=== PATIENT | female | born 1950 | race Two or more races ===

== ENCOUNTER 2022-06-16 14:20 | Outpatient (REF) | payer OTHER, SELFPAY ==
--- NOTE | ~2022-06-16 | US_ITS ---
EXAMINATION: US PELVIC AND TRANSVAGINAL CLINICAL INFORMATION: Right lower quadrant pain. COMPARISON: None TECHNIQUE: Ultrasound of the pelvis is performed using both transabdominal and transvaginal transducers along with Doppler. Transvaginal imaging is performed due to inadequate visualization transabdominally. FINDINGS: UTERUS: The uterus is anteverted and anteflexed and measures 7.6 x 1.9 x 3.4 cm. The double wall endometrial thickness is 2 mm. The uterus is smooth in contour and has normal myometrial echogenicity. No visible fibroid. Echogenic foci are seen in the cervical wall suggestive of calcifications. ADNEXA: Both ovaries are visualized. There is normal color flow to the adnexa. There is no ovarian torsion. There is no pelvic ascites or fluid collection. Right ovary measures 1.4 x 0.8 x 1.5 cm for a volume of 0.9 mL. Left ovary could not be seen. US/US pelvic and transvaginal IMPRESSION: A cause for the patient's right lower quadrant pain has not been found. No significant abnormality is seen.
--- NOTE | ~2022-06-16 | US_ITS ---
EXAMINATION: US ABDOMEN COMPLETE CLINICAL INFORMATION: Right lower quadrant pain/abdominal pain. COMPARISON: None TECHNIQUE: Real-time imaging of the abdominal viscera. FINDINGS: PANCREAS: Normal. ABDOMINAL AORTA: The proximal, mid, and distal segments are normal in caliber. INFERIOR VENA CAVA: Visualized portions are normal. LIVER: Normal. The liver is normal in size. The liver contour is normal. Parenchymal echogenicity is normal. No focal hepatic lesion. There is no intrahepatic biliary duct dilatation seen. GALLBLADDER: Normal. The gallbladder is physiologically distended without evidence of stones, sludge, polyps, wall thickening or pericholecystic fluid. COMMON BILE DUCT: Normal in caliber measuring 0.6 cm in diameter. RIGHT KIDNEY: Normal. No hydronephrosis. No renal calculi or focal parenchymal lesions. The kidney measures 9.4 cm in maximum dimension. LEFT KIDNEY: Normal. No hydronephrosis. No renal calculi or focal parenchymal lesions. The kidney measures 10.5 cm in maximum dimension. SPLEEN: Normal. The spleen measures 9.6 cm in maximum dimension. FREE FLUID: None. US/US abdomen complete IMPRESSION: No significant abnormality is seen and a cause for the patient's right lower quadrant/abdominal pain has not been found.
== END 2022-06-16 14:21 | disposition home or self-care (01) ==
LOC: HO.US 14:20
PROVIDERS: Visit Provider Internal Medicine
DX: R10.31 Right lower quadrant pain (principal)
CPT/HCPCS: 76700; 76830; 76856

== ENCOUNTER 2022-07-17 15:47 | Outpatient (REF) | payer OTHER, SELFPAY ==
[2022-07-17 16:50] LABS: TSH reflex Free T4 0.77 uIU/mL (0.32-4.0)
== END 2022-07-17 15:48 | disposition home or self-care (01) ==
LOC: HO.LAB 15:47
PROVIDERS: Visit Provider Nurse Practitioner Family
DX: Z01.818 Encounter for other preprocedural examination (principal); K21.9 Gastro-esophageal reflux disease without esophagitis; R13.10 Dysphagia, unspecified; K59.00 Constipation, unspecified
CPT/HCPCS: 36415; 84443; 99202

== ENCOUNTER 2022-07-20 15:01 | Outpatient (REF) | payer OTHER, SELFPAY | END 2022-07-20 15:02 | disposition home or self-care (01) | LOC: HO.LNP 15:01 | PROVIDERS: Visit Provider Nurse Practitioner Family | DX: K21.9 Gastro-esophageal reflux disease without esophagitis (principal); Z11.0 Encounter for screening for intestinal infectious diseases | CPT/HCPCS: 87338 ==

== ENCOUNTER 2022-07-21 14:03 | Outpatient (REF) | payer OTHER, SELFPAY ==
--- NOTE | ~2022-07-21 | MM_ITS ---
EXAMINATION: MM SCREENING DIGITAL BREAST TOMOSYNTHESIS, BILATERAL CLINICAL INFORMATION: Screening. Asymptomatic. The lifetime risk of breast cancer based on the Tyrer-Cuzick Model is 3.9%. COMPARISON: Mammography: November 13, 2021 and studies dating back to September 22, 2017 TECHNIQUE: Digital breast tomosynthesis is performed in both the craniocaudal and mediolateral oblique views along with computer-aided detection (CAD). Synthesized 2D images are generated from the tomosynthesis. FINDINGS: There are scattered areas of fibroglandular density (ACR BI-RADS breast composition Category b). Stable left breast density seen as well as being status post left breast biopsy. There is stable appearance of the breasts. MM/MM tomosynthesis screening BI IMPRESSION: No significant changes from prior exam. ASSESSMENT: BI-RADS 1: Negative RECOMMENDATION: Routine annual mammography screening. This patient's information was entered into a reminder system with a target due date for their next mammogram.
== END 2022-07-21 14:04 | disposition home or self-care (01) ==
LOC: HO.MAMMO 14:03
PROVIDERS: PCP Internal Medicine; Visit Provider Internal Medicine
DX: Z12.31 Encounter for screening mammogram for malignant neoplasm of breast (principal)
CPT/HCPCS: 77063; 77067

== ENCOUNTER 2022-11-16 16:59 | Inpatient (IN) | payer OTHER, SELFPAY ==
--- NOTE | ~2022-11-16 | US_ITS ---
EXAMINATION: US VENOUS ULTRASOUND WITH DOPPLER LOWER EXTREMITY, RIGHT CLINICAL INFORMATION: Swelling status post fall COMPARISON: None TECHNIQUE: Ultrasound of the deep veins is performed from the hip to the calf with compression sonography and color and pulse Doppler assessment. Spectral analysis with color-flow imaging is performed. FINDINGS: There is normal venous compression and respiratory variation and augmented flow. The visualized common femoral vein, superficial femoral vein, profunda femoral vein, popliteal vein, and the trifurcation region shows no evidence of deep venous thrombosis. There is no significant popliteal fossa cyst. If the patient's symptoms persist, followup ultrasound in 5 days 7 days might be of value to exclude proximal propagation from a non-visualized calf vein. US/US venous duplex LE RT IMPRESSION: No DVT demonstrated in the right lower extremity.
--- NOTE | ~2022-11-16 | MR_ITS ---
EXAMINATION: MRI LOWER EXTREMITY WITHOUT AND WITH CONTRAST, RIGHT CLINICAL INFORMATION: Osteomyelitis. COMPARISON: X-ray of the right tibia-fibula 11/16/2022. TECHNIQUE: MRI of the right lower extremity without and with contrast. CONTRAST DOSE: 6.5 mL of Gadavist given intravenously. FINDINGS: SKIN AND SUBCUTANEOUS SOFT TISSUES: There are 2 superficial defects along the distal half of the lateral aspect of the right lower leg. The more proximal defect measures 12 mm transverse located approximately 13 cm proximal to the tibiotalar joint. The second is more distally located measuring 8 mm transverse located approximately 8.5 cm proximal to the tibiotalar joint. There is thickening of the adjacent skin in both areas as well as enhancement of the skin and subcutaneous soft tissues. There is also heterogeneous abnormal signal and some enhancement extending deep to the superficial defects extending through the deeper subcutaneous soft tissues in this area to level of the muscles and/or fascia. There is scattered abnormal increased T2 signal with some enhancement of the peroneal muscles/peroneal compartment. There is also mild increased T2 signal with some scattered enhancement of the distal 8.5 cm of the fibula. There is only minimal concomitant abnormal decreased T1 signal along the distal aspect of the fibula. ADDITIONAL FINDINGS: There is a mild generalized fluid signal circumferentially about the lower leg without enhancement compatible with edema. Remaining muscles are normal. Signal in the tibia is normal. The tendons are normal. MR/MR lower leg RT wo/w con IMPRESSION: Abnormality in the soft tissues along the lateral aspect of the distal half of the lower leg compatible with 2 small areas of superficial ulcerations with additional edema and cellulitis. Concomitant abnormality of the peroneal muscles which could reflect muscle contusion, strain, or myositis. Abnormality of the marrow of the distal fibula of uncertain significance given the relative lack of abnormal signal in the T1-weighted sequence. Given the overlying soft tissue findings and the clinical presentation, early osteomyelitis is likely and cannot be excluded. However it is possible the changes within the bone could be reactive related to the overlying inflammatory process.
--- NOTE | ~2022-11-16 | XR_ITS ---
EXAMINATION: XR TIBIA AND FIBULA, RIGHT CLINICAL INFORMATION: Smith wound. Question osteomyelitis. COMPARISON: None TECHNIQUE: 3 views of the right tibia and fibula were obtained. FINDINGS: There is a mild soft tissue swelling along the anterior aspect of the tibia. Soft tissue swelling along the anterior aspect of the ankle. There is lucency and subtle cortical irregularity of the anterior aspect of the tibial plafond, as seen on the lateral projection. Osteomyelitis in this region cannot be excluded. No acute fracture or dislocation. Small suprapatellar joint effusion. Quadriceps tendon insertional spurring. XR/XR tibia fibula RT 2V IMPRESSION: Findings in the anterior aspect of the distal tibial plafond, seen on lateral projection. This is nonspecific in nature. Osteomyelitis in this region cannot be excluded. MRI evaluation would be more sensitive for further evaluation. Soft tissue swelling along the anterior aspect of the tibia and ankle.
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
[2022-11-16 17:16] VITALS: BP 124/74; BP 180/90; PULSE 82; PULSE 85; RESP 18; TEMP 36.9; O2SAT 98; O2SAT 99; BMI 26.4
[2022-11-16 19:15] LABS: MANUAL DIFF FLAG NO
[2022-11-16 19:22] LABS: Basophils Percent Auto 0.2 % (0-2); Eosinophils Percent Auto 0.4 % (0-4); Hematocrit 32.4 % (37.0-47.0); Hemoglobin 10.3 g/dl (12.0-16.0); Imm Gran Abs Auto 0.01 X10*3/uL (0.00-0.03); Imm Gran Pct Auto 0.2 % (0.0-0.4); Lymphocytes Absolute Auto 1.2 X10*3/uL (1.2-4.9); Lymphocytes Percent Auto 24.8 % (20-40); Mean Corpuscular HGB Conc 31.8 g/dl (31.0-35.0); Mean Corpuscular Hemoglobin 27.8 pg (27.0-33.0); Mean Corpuscular Volume 87.6 fL (80.0-98.0); Mean Platelet Volume 9.8 fL (9.4-12.3); Monocytes Absolute Auto 0.4 X10*3/uL (0.1-1.2); Monocytes Percent Auto 7.2 % (2-11); Neutrophils Absolute Auto 3.4 x10*3/uL (2.0-8.3); Neutrophils Percent Auto 67.2 % (45-73); Platelet Count 182 X10*3/uL (160-400); Red Cell Distribution Width 13.9 % (11.0-16.0)
[2022-11-16 19:33] LABS: Lactic Acid 0.7 mmol/L (0.5-2.0)
[2022-11-16 19:36] LABS: COVID-19 Test Negative (Negative); IDNOW Serial# 16C4AD1C
[2022-11-16 19:37] LABS: Alanine Aminotransferase 12 U/L (0-31); Albumin Level 3.7 g/dL (3.5-5.0); Alkaline Phosphatase 76 U/L (39-117); Anion Gap 13 (12-20); Aspartate Amino Transferase 15 U/L (5-31); Bilirubin Total 0.4 mg/dL (0.0-1.0); Blood Urea Nitrogen 19 mg/dL (9-16); C Reactive Protein 0.55 mg/dL (< or = 0.50); Calcium 8.8 mg/dL (8.4-10.2); Carbon Dioxide 22 mmol/L (22-29); Chloride 112 mmol/L (96-108); Creatinine Clr Calc Pharmacy 55.6; Estimated Glomerular Filt Rate > 60; Glucose Random 125 mg/dL (60-115); Potassium 3.5 mmol/L (3.3-5.1); Sodium 143 mmol/L (135-145); Total Protein 5.8 g/dL (6.5-8.0)
[2022-11-16 19:43] LABS: B Type Natriuretic Peptide 162 pg/mL (<100)
[2022-11-16 19:55] LABS: Erythrocyte Sedimentation Rate 16 MM/HR (0-20)
[2022-11-16 21:01] VITALS: BP 137/106; PULSE 84; RESP 16; TEMP 36.8; O2SAT 99
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
--- NOTE | 2022-11-16 22:18 | PHA.PROG ---
Admission Date/Time: Indication: bone and joint Weight in k.503 kg Adjusted body weight in Kg: Sula body weight in Kg: Obesity Dosing Indication % IBW: Serum Creatinine - Last 168 Hours 11/16/22 19:07 Creatinine 0.78 Estimated CrCl and GFR - Last 168 Hours 11/16/22 19:07 Estim Creat Clear Calc 55.6 Estimated GFR > 60 Vancomycin Loading Dose: 1500mg X 1 Current Vancomycin Dosing Regimen: 1000mg Q24H Vancomycin Monitoring using AUC goal of 400 - 600 range with trough as surrogate marker: 429mg/L; trough 12.6 Date and Time for next Vancomycin Level to be drawn: 11/19/22 @2100 Pharmacist Comments on Vancomycin Plan: will continue to monitor Vancomycin dosing will take advantage of [employer] as a clinical decision support tool that uses Bayesian modeling to calculate individual patient's pharmacokinetic parameters and forecast the patient's drug concentration time course with the target goal AUC 24 range of 400 - 600 mg/L/hr.
[2022-11-16] MEDS: cefEPime HCl 2 GM in 0.9 % Sodium Chloride 50 ML IV (22:19)
[2022-11-16] MEDS: Morphine Sulfate 4 MG/ML CARTRIDGE 2 MG IVPUSH (22:20)
[2022-11-16] MEDS: Enoxaparin Sodium 40 MG/0.4 ML SYRINGE SUBCUT (22:20)
--- NOTE | 2022-11-16 22:26 | PC.NURSE ---
pt a&o, denies an sob or chest pain, medicated per Mar. Will continue to moniotr.
[2022-11-16] MEDS: vancomycin HCL 1,500 MG in 0.9 % Sodium Chloride 500 ML 333.33 MG IV (23:06)
[2022-11-16 23:08] VITALS: BP 117/76; PULSE 96; RESP 17; TEMP 36.8; O2SAT 99
--- NOTE | 2022-11-16 23:09 | PC.NURSE ---
Medicated per Mar.
[2022-11-17] MEDS: 0.9 % Sodium Chloride Flush 3 ML SYRINGE IVFLUSH ×3 (00:59→21:48)
[2022-11-17 01:01] VITALS: BP 128/51; PULSE 82; RESP 18; TEMP 36.8; O2SAT 98
[2022-11-17 02:41] VITALS: BP 135/53; PULSE 74; RESP 17; TEMP 36.8; O2SAT 97
--- NOTE | 2022-11-17 03:43 | PC.NURSE ---
Wound to right leg marked and dated, positive cms and pedal pulses by Doppler. Legs elevated. Pt is sleeping at this time with no distress.
--- NOTE | 2022-11-17 04:36 | PC.NURSE ---
pt sleeping at this time with distress.
[2022-11-17 07:11] VITALS: BP 120/75; PULSE 80; RESP 16; O2SAT 100
[2022-11-17 07:30] LABS: MANUAL DIFF FLAG NO
[2022-11-17 07:34] LABS: Basophils Percent Auto 0.5 % (0-2); Eosinophils Absolute Auto 0.1 X10*3/uL (0.0-0.4); Eosinophils Percent Auto 1.4 % (0-4); Hematocrit 32.2 % (37.0-47.0); Hemoglobin 10.2 g/dl (12.0-16.0); Lymphocytes Absolute Auto 0.9 X10*3/uL (1.2-4.9); Lymphocytes Percent Auto 23.6 % (20-40); Mean Corpuscular HGB Conc 31.7 g/dl (31.0-35.0); Mean Corpuscular Volume 88.5 fL (80.0-98.0); Mean Platelet Volume 10.4 fL (9.4-12.3); Monocytes Absolute Auto 0.3 X10*3/uL (0.1-1.2); Monocytes Percent Auto 8.5 % (2-11); Neutrophils Absolute Auto 2.4 x10*3/uL (2.0-8.3); Platelet Count 158 X10*3/uL (160-400); Red Blood Count 3.64 X10*6/uL (4.20-5.50); Red Cell Distribution Width 13.9 % (11.0-16.0); White Blood Count 3.7 X10*3/uL (4.8-10.8)
[2022-11-17 07:51] LABS: Anion Gap 12 (12-20); Blood Urea Nitrogen 14 mg/dL (9-16); Calcium 8.7 mg/dL (8.4-10.2); Carbon Dioxide 22 mmol/L (22-29); Chloride 113 mmol/L (96-108); Creatinine Clr Calc Pharmacy 58.7; Estimated Glomerular Filt Rate > 60; Glucose Random 94 mg/dL (60-115); Potassium 3.6 mmol/L (3.3-5.1); Sodium 143 mmol/L (135-145)
[2022-11-17] MEDS: Acetaminophen 325 MG TABLET 650 MG PO ×3 (08:33→21:48)
--- NOTE | 2022-11-17 09:45 | PC.NURSE ---
MRI form completed with assistance of respiratory medicine physician. Patient given PRN tylenol for complaint of mild RLE pain with good effect.
--- NOTE | 2022-11-17 10:36 | MHC.CM.PN ---
Addendum entered by Sandy Bellamy 11/17/22 11:40: REFERRAL MADE TO [facility] THEY INDICATE, PT IS ACTIVE WITH THEM FOR SN SERVICES THEY WILL FOLLOW ADMISSION Original Note: CM MET WITH PT WITH THE ASSISTANCE OF [facility] PT REPORTS SHE LIVES ALONE SHE IS SUPPOSED TO HAVE UPHOLSTERY TRIMMER CARE, HOWEVER SHE ONLY ALLOWS ONE PERSON AND THEY RECENTLY [place] TO THE [place]. SHE SAYS HE IS IN THE PROCESS OF GETTING THE PAPERWORK COMPLETE TO RETURN SHE USES A WALKER TO AMBULATE SHE DOES NOT KNOW THE NAME HER OF PCP, SHE GOES TO [facility] SHE DECLINES TO COMPLETE A HCP IMM DELIVERED, COPY SENT TO [facility]DS CURRENTLY DCP IS TBD HOME VS HOME WITH [facility] IF IV ABX ARE REQUIRED, SHE WILL NEED SNF REFERRALS OUT FOR ALL POSSIBLE DC PLANS SHE WILL NEED TRANSPORTATION ARRANGED
--- NOTE | 2022-11-17 11:54 | MHC.EDTECH ---
Pt was assisted with a complete bed bath. Pt needed limited assistance with the task. The pt is able to stand up well alone. Pt was able to brush her teeth on bedside. Pt needed assistance with putting on new underwear and socks. Bed linens were swapped for clean ones. 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 No complaints.
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
[2022-11-17 13:30] VITALS: BP 137/72; PULSE 90; RESP 16; TEMP 37.1; O2SAT 100
[2022-11-17] MEDS: cefEPime HCl 2 GM in 0.9 % Sodium Chloride 50 ML IV ×2 (13:37→22:13)
[2022-11-17] MEDS: Metoprolol Succinate ER 25 MG TAB.ER.24H PO (13:59)
[2022-11-17] MEDS: Multivitamin TABLET 1 TAB PO ×2 (14:00→21:50)
[2022-11-17] MEDS: Cyanocobalamin (Vitamin B-12) 1,000 MCG TABLET 1000 MCG PO (14:00)
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
[2022-11-17 19:26] VITALS: BP 143/60; PULSE 79; RESP 15; TEMP 36.6; O2SAT 100
[2022-11-17] MEDS: Enoxaparin Sodium 40 MG/0.4 ML SYRINGE SUBCUT (21:48)
[2022-11-17] MEDS: Sennosides 8.6 MG TABLET PO (21:48)
[2022-11-17] MEDS: vancomycin HCL 1,000 MG in 0.9 % Sodium Chloride 250 ML 270 MG IV (23:01)
--- NOTE | 2022-11-18 04:51 | PC.NURSE ---
assumed care of patient at 0300 . patient resting comfortably on stretcher
[2022-11-18 07:36] LABS: Creatinine Clr Calc Pharmacy 56.4; Estimated Glomerular Filt Rate > 60
[2022-11-18 07:58] VITALS: BP 132/64; PULSE 90; RESP 14; TEMP 36.8; O2SAT 99
[2022-11-18] MEDS: Multivitamin TABLET 1 TAB PO (08:25)
[2022-11-18] MEDS: Metoprolol Succinate ER 25 MG TAB.ER.24H PO (08:25)
[2022-11-18] MEDS: Omeprazole 20 MG CAPSULE.DR PO (08:25)
[2022-11-18] MEDS: Cyanocobalamin (Vitamin B-12) 1,000 MCG TABLET 1000 MCG PO (08:25)
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
--- NOTE | 2022-11-18 10:23 | MHC.CM.PN ---
Patient has been medically cleared for dc to home today, with services. Patient is active with [facility], who has been made aware of today's dc and dc summary and face to face has been sent to them via Topic. Last IMM addressed yesterday.
--- NOTE | 2022-11-18 11:21 | PC.NURSE ---
will follow up with wound care, Dr figueroa aware patient still has stiches in place
== END 2022-11-18 11:25 | disposition home health service (06) | DRG 603 ==
LOC: HO.ED 21:42 → HO.EDOVER 22:29
PROVIDERS: Physician Assistant; Admitting Provider Physician Assistant; Emergency Provider Internal Medicine; PCP Internal Medicine; Visit Provider Internal Medicine
DX: L03.115 Cellulitis of right lower limb (principal); M86.161 Other acute osteomyelitis, right tibia and fibula; D64.9 Anemia, unspecified; M10.9 Gout, unspecified; K21.9 Gastro-esophageal reflux disease without esophagitis; I10 Essential (primary) hypertension; Z20.822 Contact with and (suspected) exposure to COVID-19; Z79.899 Other long term (current) drug therapy
CPT/HCPCS: 36415; 73590; 73720; 80048; 80053; 82565; 83605; 83735; 83880; 85025; 85652; 86140; 87040; 87635; 93971; 99285; A9585; J0692; J1650; J2270; J3370; J3371

== ENCOUNTER 2022-12-01 14:00 | Outpatient (RCR) | payer OTHER, SELFPAY | END 2023-01-29 13:45 | disposition home or self-care (01) | LOC: HO.WCC 14:00 | PROVIDERS: Visit Provider Physician Assistant | DX: E11.622 Type 2 diabetes mellitus with other skin ulcer (principal); L97.812 Non-pressure chronic ulcer of other part of right lower leg with fat layer exposed; I87.2 Venous insufficiency (chronic) (peripheral); E11.65 Type 2 diabetes mellitus with hyperglycemia; I10 Essential (primary) hypertension; I25.2 Old myocardial infarction | CPT/HCPCS: 11042; 11043; 11045; 11046; 99212 ==

== ENCOUNTER 2023-04-29 14:22 | Outpatient (REF) | payer OTHER, SELFPAY ==
--- NOTE | ~2023-04-29 | MM_ITS ---
EXAMINATION: BONE DENSITOMETRY CLINICAL INDICATION: Postmenopausal. COMPARISON: This is the patient's baseline examination. TECHNIQUE: Using a [employer] DXA System (software version: 13.1) manufactured by [employer], dual-energy x-ray absorptiometry was performed of the lumbar spine and left hip. The images are of good technical quality. Summary results are attached. FINDINGS: LEFT FEMUR, NECK: BMD 0.614 g/cm2, Z-score -1.2, T-score -3.0, osteoporosis. LEFT FEMUR, TOTAL: BMD 0.654 g/cm2, Z-score -1.1, T-score -2.8, osteoporosis. AP SPINE L1-L2 (excluding L3 and L4): The data of L1-L4 has been changed to exclude the L3 and L4 vertebral bodies, because degenerative sclerosis at these levels may cause overestimation of lumbar spine density. BMD 0.881 g/cm2, Z-score -0.6, T-score -2.4, osteopenia. IDENTIFIED RISK FACTORS: Menopause, osteoporosis. HISTORY OF FRACTURE: None listed. MEDICATIONS: Calcium, vitamin D. MM/XR DEXA axial skeleton IMPRESSION: 1. DIAGNOSIS: Osteoporosis based on the lowest T-score value of -3.0 in the femoral neck applying World Health Organization criteria. 2. 10-YEAR FRACTURE RISK PREDICTION, FRAX: According to the guidelines, FRAX calculation should only be performed on patients in the osteopenia bone density category. Therefore, FRAX was not performed on this patient. 3. Treatment Recommendations: NOF guidelines recommend consideration for treatment in postmenopausal women and men age 50 and older presenting with the following: -A hip or vertebral (clinical or morphometric) fracture. -T-score less than or equal to -2.5 at the femoral neck or spine after appropriate evaluation to exclude secondary causes. -Low bone mass at the hip or spine and a 10-year fracture probability by FRAX of greater than or equal to 3% for hip fracture or greater than or equal to 20% for major osteoporotic fracture based on the [place] adapted WHO algorithm. 4. Other Recommendations: All treatment decisions require clinical judgment and consideration of individual patient factors, including patient preferences, comorbidities, previous drug use, risk factors not captured in the FRAX model (e.g. frailty, falls, vitamin D deficiency, increased bone turnover, interval significant decline in bone density) and possible under or overestimation of fracture risk by FRAX. Additional medical evaluation for secondary cause of low bone mineral density may be appropriate. FUTURE SCAN RECOMMENDATION: People with diagnosed cases of osteoporosis or at high risk for fracture should have regular bone mineral density tests. For patients eligible for Medicare, routine testing is allowed once every 2 years. The testing frequency can be increased to one year for patients who have rapidly progressing disease, those who are receiving or discontinuing medical therapy to restore bone mass, or have additional risk factors.
== END 2023-04-29 14:23 | disposition home or self-care (01) ==
LOC: HO.MAMMO 14:22
PROVIDERS: PCP Family Medicine; Visit Provider Family Medicine
DX: Z13.820 Encounter for screening for osteoporosis (principal); Z78.0 Asymptomatic menopausal state
CPT/HCPCS: 77080

== ENCOUNTER → 2023-04-29 14:30 | Outpatient (BNV) | payer OTHER, SELFPAY | PROVIDERS: PCP Family Medicine; Visit Provider Radiology Diagnostic Radiology | DX: Z13.820 Encounter for screening for osteoporosis (principal) | CPT/HCPCS: 77080 ==

== ENCOUNTER 2023-09-01 12:30 | Outpatient (REF) | payer OTHER, SELFPAY ==
--- NOTE | ~2023-09-01 | MM_ITS ---
EXAMINATION: MM SCREENING DIGITAL BREAST TOMOSYNTHESIS, BILATERAL CLINICAL INFORMATION: Screening. Asymptomatic. COMPARISON: Mammography: This study is compared with prior exams dating back to 2017. TECHNIQUE: Digital breast tomosynthesis is performed in both the craniocaudal and mediolateral oblique views along with computer-aided detection (CAD). Synthesized 2D images are generated from the tomosynthesis. FINDINGS: There are scattered areas of fibroglandular density (ACR BI-RADS breast composition Category b). There are no significant masses, abnormal calcifications, or other abnormalities. There is a tissue marker present in the lateral aspect of the left breast from prior benign percutaneous biopsy. MM/MM tomosynthesis screening BI IMPRESSION: No mammographic evidence of malignancy. ASSESSMENT: BI-RADS BI-RADS 2 - Benign Findings RECOMMENDATION: Routine annual mammography screening. 1 year F/U This examination should not preclude the clinical evaluation of a suspicious palpable abnormality. This patient's information was entered into a reminder system with a target due date for their next mammogram.
== END 2023-09-01 12:31 | disposition home or self-care (01) ==
LOC: HO.MAMMO 12:30
PROVIDERS: PCP General Practice; Visit Provider Internal Medicine
DX: Z12.31 Encounter for screening mammogram for malignant neoplasm of breast (principal)
CPT/HCPCS: 77063; 77067

== ENCOUNTER → 2023-09-01 12:30 | Outpatient (BNV) | payer OTHER, SELFPAY | PROVIDERS: PCP General Practice; Visit Provider Radiology Diagnostic Radiology | DX: Z12.31 Encounter for screening mammogram for malignant neoplasm of breast (principal) | CPT/HCPCS: 77063; 77067 ==

== ENCOUNTER 2023-09-07 11:48 | Outpatient (AMB) | payer OTHER, SELFPAY ==
--- NOTE | 2023-09-07 11:50 | A.OFFVIS_ITS ---
Intake Vital Signs 09/07/23 11:51 Height 5 ft 1 in Weight 145 lb 8.081 oz BMI 27.5 BP 135/60 Blood Pressure Location Lt brachial Position Sitting Pulse 79 Intake Visit Reasons: Follow up re discuss colo Intake Note: Erica presents in the office as a follow up to justin. CC: She states that she is not having any concerns. Allergies No Known Allergies Allergy (Verified 09/07/23 11:52) HPI Follow up re discuss colo HPI Details LAST VISIT Screen for colon cancer Reports symptoms of shortness of breath, palpitation and chest pressure. Patient states that feeling of choking like episode when she is walking even short dista nces. We will refer her to Cardiology for risk stratification. Patient also has symptoms of acid reflux, dyspepsia, dysphagia without odynophagia. Her symptoms of shortness of breath and chest pressure could be related to acid reflux, however given her age and her symptoms she should be evaluated before going under anesthesia. Denies any issues with anesthesia in the past.? Denies any history of sleep apnea.? No history infectious diseases in the past or present.? Not on any anticoagulation therapy.? No family or personal history of colon cancer or polyps.? Patient denies melena, hematochezia, unintentional weight loss or ribbon like stools.? Discussed at length the pre-procedure,? prep, diet & medications as well as what to expect prior, during and after the procedure.?? Stressed the importance of good bowel prep. ?Recommended the use of Vaseline or Calmoseptine OTC & baby wipes with bowel movements to promote comfort.? ?Patient verbalizes understanding and agrees to plan of care.? She was given the opportunity to ask questions and all questions answered.? We will see her after the procedure.? GERD (gastroesophageal reflux disease) Will check for H pylori treat empirically if positive. Patient is on omeprazole 20 mg daily and continues to have symptoms. Discussed with her avoiding dietary triggers and late night snacking. Staying upright for minimal 3 hours after meals discussed with patient. Dysphagia Patient reports to have trouble swallowing certain food. This most likely is related to her acid reflux, possible H pylori. We will treat her empirically if is positive. We will send her for upper endoscopy as well to further evaluate for any strictures, Schatzki ring, achalasia. Patient was encouraged to eat slowly and small soft food. Patient is agreeable to this plan and verbalizes understanding of instructions. She was given the opportunity to ask questions and all questions answered. ? Thank you for allowing me to participate in her care Plan Orders Orders H pylori Ag Stool 07/20/22 K21.9 TSH reflex Free T4 07/17/22 K59.00 Referrals Cardiology Referral Z01.810 Medications New sennosides (Evac-U-Gen (sennosides)) 8.6 mg PO BEDTIME 30 tabs 3RF polyethylene glycol 3350 (Miralax) 17 grams PO DAILY 510 grams 2RF TODAY'S VISIT: Patient is here today to discuss going for colonoscopy. Patient never went for colonoscopy after her last visit in the office here in July of 2022. Patient reports that she no longer has any cardiac or respiratory symptoms. Occasional dysphagia when swallowing medications or solid food. Denies any history of sleep apnea. See above plan from last visit. Patient reports that she is moving her bowels better now. Denies any melena, hematochezia, unintentional weight loss or ribbon like stools. [facility] Medical History External hemorrhoids Constipation Gout Tachycardia HTN (hypertension) GERD (gastroesophageal reflux disease) Surgical History Hx of colonoscopy Family History Sister Diabetes HTN (hypertension) Social History Alcohol intake: never Patient Tobacco Use Status: Never used Tobacco service: No Current occupational status: retired Review of Systems Const Denies weight gain and Denies weight loss ENT Reports no additional complaints, Reports dysphagia and Denies odynophagia Card Reports no additional complaints Resp Reports no additional complaints GI Denies abdominal pain, Denies belching, Denies melena, Denies bloating, Denies change in bowel habits, Reports dysphagia, Denies excessive flatus, Denies dyspepsia, Denies heartburn, Denies diarrhea, Denies loose stools, Denies nausea, Denies odynophagia and Denies vomiting Musc Reports no additional complaints Neuro Reports no additional complaints Psych Reports no additional complaints Endo Reports no additional complaints Physical Exam Vital Signs: Last Vital Signs Pulse 79 09/07/23 11:51 BP 135/60 09/07/23 11:51 BMI result Body Mass Index 27.5 Const General: healthy appearing, no acute distress and well developed Nutritional Appearance: well nourished Orientation/consciousness: patient oriented x3 HEENT Head: Yes normal to inspection, Yes normocephalic and Yes atraumatic Face and sinus: Yes normal facial exam Mouth: Normal oral and palatal mucosa present Throat: Yes posterior oropharynx normal, Yes tonsils normal and Yes uvula midline Eyes General: appearance normal, both eyes and all related structures Neck Neck: Yes normal visual inspection, Yes full ROM and Yes trachea midline Thyroid: Thyroid normal Resp Effort & Inspection: normal respiratory effort, able to speak in complete sentences, no tracheal deviation and symmetric chest movement Auscultation: clear to auscultation bilaterally Cardio Rate: regular rate GI Inspection: Yes normal to inspection and No distended Palpation (GI): Soft to palpation, not firm, nontender and No hepatosplenomegaly present Auscultation: normal bowel sounds General: Yes no CVA tenderness Back/Spine/Pelvis Back: no CVA tenderness Skin General skin exam: elasticity normal, turgor normal and dry skin Neuro General: patient oriented x3 Psych Appearance: grossly normal Mental Status: mental status grossly normal Assessment & Plan Assessment & Plan (1) GERD (gastroesophageal reflux disease): Code(s): K21.9 - Gastro-esophageal reflux disease without esophagitis Qualifiers: Esophagitis presence: esophagitis presence not specified Qualified Code(s): K21.9 - Gastro-esophageal reflux disease without esophagitis (2) Screen for colon cancer: Code(s): Z12.11 - Encounter for screening for malignant neoplasm of colon (3) Dysphagia: Code(s): R13.10 - Dysphagia, unspecified Qualifiers: Dysphagia type: pharyngoesophageal phase Qualified Code(s): R13.14 - Dysphagia, pharyngoesophageal phase Plan Patient was encouraged to chew her food and eat slowly. Continue taking omeprazole. I will send her for upper endoscopy as well due to patient's dysphagia to rule out esophagitis, Flores's, Schatzki ring, achalasia. Patient will not need cardiac clearance. States that she had seen record label intern at [facility] where she had stress test and it was normal. Patient no longer has any cardiac or respiratory symptoms. Patient is not on any anticoagulation medications. What to expect before during and after procedure discussed with patient. Went over MiraLax prep. Patient will take 4 Dulcolax tablets a day before the procedure. Detailed instructions given to patient and her [employer]. She will follow-up in the office after the procedure, sooner on as needed basis. She is agreeable to this plan and verbalizes understanding of instructions. She was given the opportunity to ask questions and all questions answered. Thank you for allowing me to participate in her care Medications: New polyethylene glycol 3350 (Miralax) As directed by gastroenterology [facility] at [facility] 238 grams PO ONCE 238 grams 0RF Z12.11 - Encounter for screening for malignant neoplasm of colon bisacodyl (Dulcolax (bisacodyl)) take 4 tabs at noon the day before your colonoscopy 20 mg (4 x 5 mg) PO ONCE 1 day 4 tabs 0RF Z12.11 - Encounter for screening for malignant neoplasm of colon Coding Level of Care Code Est Pt Level 3 (96047) Diagnoses Gastroesophageal reflux disease, unspecified whether esophagitis present K21.9 Esophagitis presence: esophagitis presence not specified Screen for colon cancer Z12.11 Pharyngoesophageal dysphagia R13.14 Dysphagia type: pharyngoesophageal phase Time Spent (min) 35 Comment 25 minutes spent with patient and additional 10 minutes spent reviewing her records
[2023-09-07 11:51] VITALS: BP 135/60; PULSE 79; BMI 27.5
== END 2023-09-07 14:49 | disposition home or self-care (01) ==
PROVIDERS: PCP General Practice; Visit Provider Nurse Practitioner Family
DX: K21.9 Gastro-esophageal reflux disease without esophagitis (principal); Z12.11 Encounter for screening for malignant neoplasm of colon; R13.14 Dysphagia, pharyngoesophageal phase
CPT/HCPCS: 99213

== ENCOUNTER → 2023-09-07 11:48 | Outpatient (BNVA) | payer OTHER, SELFPAY | PROVIDERS: PCP General Practice; Visit Provider Nurse Practitioner Family | DX: Z12.11 Encounter for screening for malignant neoplasm of colon (principal); K21.9 Gastro-esophageal reflux disease without esophagitis; R13.14 Dysphagia, pharyngoesophageal phase | CPT/HCPCS: 99212 ==

== ENCOUNTER 2023-10-11 | Outpatient (REF) | payer OTHER, SELFPAY ==
[2023-10-14 13:04] LABS: C. trachomatis RNA TMA NOT DETECTED (NOT DETECTED); N. gonorrhoeae RNA TMA NOT DETECTED (NOT DETECTED)
== END 2023-10-11 00:01 | disposition home or self-care (01) ==
LOC: HO.CHCLNP
PROVIDERS: Visit Provider Family Medicine
DX: N89.8 Other specified noninflammatory disorders of vagina (principal)
CPT/HCPCS: 36415; 81513; 87491; 87591

== ENCOUNTER 2024-01-21 12:09 | Outpatient (REF) | payer OTHER, SELFPAY ==
[2024-01-21 14:44] LABS: MANUAL DIFF FLAG NO
[2024-01-21 15:17] LABS: Basophils Percent Auto 0.2 % (0-2); Eosinophils Percent Auto 0.6 % (0-4); Hematocrit 37.5 % (37.0-47.0); Hemoglobin 12.1 g/dl (12.0-16.0); Imm Gran Abs Auto 0.01 X10*3/uL (0.00-0.03); Imm Gran Pct Auto 0.2 % (0.0-0.4); Lymphocytes Absolute Auto 1.1 X10*3/uL (1.2-4.9); Lymphocytes Percent Auto 21.5 % (20-40); Mean Corpuscular HGB Conc 32.3 g/dl (31.0-35.0); Mean Corpuscular Hemoglobin 28.1 pg (27.0-33.0); Mean Platelet Volume 11.3 fL (9.4-12.3); Monocytes Absolute Auto 0.4 X10*3/uL (0.1-1.2); Monocytes Percent Auto 8.6 % (2-11); Neutrophils Absolute Auto 3.4 x10*3/uL (2.0-8.3); Neutrophils Percent Auto 68.9 % (45-73); Platelet Count 174 X10*3/uL (160-400); Red Blood Count 4.31 X10*6/uL (4.20-5.50); Red Cell Distribution Width 13.9 % (11.0-16.0)
[2024-01-21 16:57] LABS: Alanine Aminotransferase 13 U/L (0-31); Albumin Level 4.3 g/dL (3.5-5.0); Alkaline Phosphatase 67 U/L (39-117); Anion Gap 11 (12-20); Aspartate Amino Transferase 23 U/L (5-31); Bilirubin Total 0.9 mg/dL (0.0-1.0); Blood Urea Nitrogen 24 mg/dL (9-16); Calcium 9.2 mg/dL (8.4-10.2); Carbon Dioxide 26 mmol/L (22-29); Chloride 109 mmol/L (96-108); Cholesterol 181 mg/dL (<200); Estimated Glomerular Filt Rate > 60; Glucose Random 104 mg/dL (60-115); HDL Cholesterol 56 mg/dL (>40); LDL Cholesterol Calculated 101 mg/dL (<100); Potassium 4.3 mmol/L (3.3-5.1); Sodium 142 mmol/L (135-145); Triglycerides 122 mg/dL (<150)
[2024-01-21 17:01] LABS: TSH reflex Free T4 0.76 uIU/mL (0.32-4.0)
[2024-01-22 03:40] LABS: Syphilis Screen Nonreactive (Nonreactive)
[2024-01-22 04:31] LABS: HIV AB/AG Nonreactive (Nonreactive); HIV Num 1 0.03 S/CO (0.00-0.99); ~Hepatitis C Antibody Reactive (Nonreactive)
[2024-01-24 13:02] LABS: TS Negative Control Passed; TS Panel A 0; TS Panel B 0; TS Positive Control Passed; TSpotTB Negative (Negative)
[2024-01-25 10:53] LABS: HCV Log PCR <1.18 NOT DETECTED Log IU/mL (NOT DETECTED); HepC Viral Load <15 NOT DETECTED IU/mL (NOT DETECTED)
== END 2024-01-21 12:10 | disposition home or self-care (01) ==
LOC: HO.CHCLDS 12:09
PROVIDERS: Visit Provider Family Medicine
DX: Z11.4 Encounter for screening for human immunodeficiency virus [HIV] (principal); Z11.1 Encounter for screening for respiratory tuberculosis; I50.9 Heart failure, unspecified
CPT/HCPCS: 36415; 80053; 80061; 84443; 85025; 86481; 86780; 86803; 87389; 87522

== ENCOUNTER 2024-02-15 | Outpatient (REF) | payer OTHER, SELFPAY ==
[2024-02-22 12:49] LABS: HPV mRNA E6/E7 rflx Not Detected (Not Detected)
== END 2024-02-15 00:01 | disposition home or self-care (01) ==
LOC: HO.HHCLNP
PROVIDERS: Visit Provider Family Medicine
DX: Z01.419 Encounter for gynecological examination (general) (routine) without abnormal findings (principal)
CPT/HCPCS: 87624; 88142

== ENCOUNTER 2024-04-25 11:44 | Outpatient (REF) | payer OTHER, SELFPAY ==
[2024-04-25 14:01] LABS: MANUAL DIFF FLAG NO
[2024-04-25 14:06] LABS: Basophils Percent Auto 0.6 % (0-2); Eosinophils Absolute Auto 0.1 X10*3/uL (0.0-0.4); Eosinophils Percent Auto 1.1 % (0-4); Hematocrit 36.5 % (37.0-47.0); Hemoglobin 11.6 g/dl (12.0-16.0); Imm Gran Abs Auto 0.01 X10*3/uL (0.00-0.03); Imm Gran Pct Auto 0.2 % (0.0-0.4); Lymphocytes Absolute Auto 1.3 X10*3/uL (1.2-4.9); Lymphocytes Percent Auto 24.7 % (20-40); Mean Corpuscular HGB Conc 31.8 g/dl (31.0-35.0); Mean Corpuscular Hemoglobin 27.8 pg (27.0-33.0); Mean Corpuscular Volume 87.5 fL (80.0-98.0); Mean Platelet Volume 10.9 fL (9.4-12.3); Monocytes Absolute Auto 0.4 X10*3/uL (0.1-1.2); Neutrophils Absolute Auto 3.5 x10*3/uL (2.0-8.3); Neutrophils Percent Auto 65.4 % (45-73); Platelet Count 183 X10*3/uL (160-400); Red Blood Count 4.17 X10*6/uL (4.20-5.50); Red Cell Distribution Width 13.2 % (11.0-16.0); White Blood Count 5.3 X10*3/uL (4.8-10.8)
[2024-04-25 14:30] LABS: INTERNATIONAL NORM RATIO 0.9 (0.9-1.1); Prothrombin Time 11.3 SEC (11.1-13.3)
[2024-04-25 14:32] LABS: Partial Thromboplastin Time 26.9 SEC (26.0-36.8)
== END 2024-04-25 11:45 | disposition home or self-care (01) ==
LOC: HO.CHCLDS 11:44
PROVIDERS: Visit Provider Internal Medicine
DX: D69.2 Other nonthrombocytopenic purpura (principal)
CPT/HCPCS: 36415; 85025; 85610; 85730

== ENCOUNTER 2024-08-18 10:34 | Emergency (ER) | payer OTHER, SELFPAY ==
--- NOTE | ~2024-08-18 | XR_ITS ---
EXAMINATION: XR HIP, LEFT CLINICAL INFORMATION: Left hip pain following a fall. Question fracture. COMPARISON: None available. TECHNIQUE: AP view the pelvis as well as AP and frog-leg lateral views of the left hip. FINDINGS: No acute fracture or dislocation. Mild left hip joint space narrowing with tiny marginal osteophytes. No osseous erosion. No concerning lytic or blastic osseous lesion. No evidence of femoral head avascular necrosis. Phleboliths within the pelvis. XR/XR hip LT w PEL1V IMPRESSION: 1. No acute fracture or dislocation. 2. Mild left hip osteoarthritis. Electronically signed by: Parviz Pinedo MD 08/18/2024 02:35 PM [facility]
[2024-08-18 10:50] VITALS: BP 128/44; PULSE 77; RESP 16; TEMP 36.6; O2SAT 99; BMI 28.6
[2024-08-18 12:10] VITALS: BP 134/57; PULSE 77; RESP 16; TEMP 36.6; O2SAT 97
--- NOTE | 2024-08-18 12:39 | ED.GENADULT ---
HPI - General Adult General Chief complaint: Extremity Injury, Lower Stated complaint: leg pain Time Seen by Provider: 08/18/24 11:13 Source: patient Mode of arrival: ambulatory Limitations: no limitations History of Present Illness ED Provider: Alex Hoffmann PA-C HPI narrative: 73-year-old female past medical history of GERD presents to ED for left hip pain for about a month. Patient states she fell a month ago but did not get evaluated. Patient states she fell on left hip. Patient denies any back pain, headache, nausea, vomiting, paralysis of lower extremities, urinary/bowel incontinence, and history of IV drug use, or any history of immunocompromise diseases. Patient denies any genitourinary symptoms. Patient denies any flank pain Related Data Home Medications ?Medication ?Instructions ?Recorded ?Confirmed cyanocobalamin (vitamin B-12) 1,000 mcg PO DAILY 07/17/22 11/16/22 1,000 mcg tablet (Vitamin B-12) multivitamin-iron 9 mg-folic acid 1 tab PO BID 07/17/22 11/16/22 400 mcg-calcium and minerals tablet (Thera-M) omeprazole 20 mg capsule,delayed 20 mg PO DAILY 07/17/22 11/16/22 release polyvinyl alcohol 1.4 % eye drops 1 drp ophthalmic (eye) DAILY 07/17/22 11/16/22 (Artificial Tears (polyvinyl alcohol)) vit C 250 mg-vit E 90 mg-zinc 40 1 cap PO BID 07/17/22 11/16/22 mg-copper 1 [id number] capsule (PreserVision AREDS-2) metoprolol succinate 25 mg 25 mg PO DAILY 11/16/22 11/16/22 tablet,extended release 24 hr alendronate 70 mg tablet 70 mg PO QWEEK 09/07/23 calcium carbonate mg PO DAILY 09/07/23 carboxymethylcellulose sodium 0.5 drp ophthalmic (eye) 09/07/23 % eye drops (Lubricant Eye Drops) cholecalciferol (vitamin D3) 25 25 mcg PO DAILY 09/07/23 mcg (1,000 unit) tablet docusate sodium 100 mg capsule 100 mg PO BID 09/07/23 melatonin 5 mg capsule mg PO BEDTIME PRN 09/07/23 Previous Rx's ?Medication ?Instructions ?Recorded sennosides 8.6 mg tablet 8.6 mg PO BEDTIME #30 tabs 07/17/22 (Evac-U-Gen (sennosides)) bisacodyl 5 mg tablet,delayed 20 mg (4 x 5 mg) PO ONCE 1 day #4 09/07/23 release (Dulcolax (bisacodyl)) tabs polyethylene glycol 3350 17 238 g PO ONCE #238 grams 09/07/23 gram/dose oral powder (Miralax) prednisone 20 mg tablet 40 mg (2 x 20 mg) PO DAILY 5 days 08/18/24 #10 tabs Allergies Allergy/AdvReac Type Severity Reaction Status Date / Time No Known Allergies Allergy Verified 08/18/24 10:53 Review of Systems Review of Systems: Left hip pain Yes all other systems are reviewed and are negative [facility] Past Medical History Medical History External hemorrhoids Constipation Gout Tachycardia HTN (hypertension) GERD (gastroesophageal reflux disease) Surgical History Hx of colonoscopy Family History Family History Sister Diabetes HTN (hypertension) Social History Social History Alcohol intake: never Patient Tobacco Use Status: Never used Tobacco Advance Directives: No Advance Directives Information Provided: No service: No Current occupational status: retired Physical Exam ED Vital Signs: Vital Signs - 24 hr 08/18/24 10:50 08/18/24 12:10 08/18/24 14:32 Temperature 97.9 F 97.8 F 97.8 F Pulse Rate 77 77 86 Respiratory Rate 16 16 16 Blood Pressure 128/44 L 134/57 L 148/75 H Pulse Oximetry 99 97 99 Oxygen Delivery Method Room Air Room Air Room Air 08/18/24 15:12 Temperature 97.5 F Pulse Rate 86 Respiratory Rate 16 Blood Pressure 148/77 H Pulse Oximetry 98 Oxygen Delivery Method Room Air BMI result Body Mass Index 28.6 Const General: cooperative, healthy appearing, comfortable, no acute distress, well developed and alert Orientation/consciousness: patient oriented x3 HENMT Head: Yes normal to inspection, Yes No palpable skull fracture present, Yes normocephalic and Yes atraumatic Ears: hearing grossly normal bilaterally, external ears normal, TM's normal bilaterally, TM normal on the right, TM normal on the left, EAC's normal, mastoids normal and no periauricular adenopathy Eyes General: appearance normal, both eyes and all related structures Neck Neck: Yes normal visual inspection, Yes full ROM, Yes no lymphadenopathy, Yes no meningeal signs, Yes trachea midline, Yes supple, No anterior neck swelling and No tender Chest Chest palpation & inspection: normal inspection of the chest and normal palpation of entire chest wall Resp Effort & Inspection: normal respiratory effort and able to speak in complete sentences Auscultation: clear to auscultation bilaterally Cardio Jugular venous distension: no JVD Heart sounds: S1 normal heart sound present and S2 normal heart sound present GI Inspection: Yes normal to inspection Palpation (GI): Soft to palpation, not firm, nontender, no guarding and not rigid General: Yes no CVA tenderness Back/Spine/Pelvis Back: no CVA tenderness and No back tenderness Skin General skin exam: no rashes or lesions noted, elasticity normal and turgor normal Neuro General: patient oriented x3, gait normal, tone normal, moves all extremities, Normal light touch and pain sensation, no meningeal signs, no focal motor deficits, CN's II-XI intact bilaterally and normal sensation to monofilament Extrem Upper/lower leg/hip images: 1. Positive for tenderness on palpation. Negative for crepitus, ecchymosis, erythema, or deformity. Rest of extremity normal. Motor/neuro/vascular exam intact Psych Appearance: grossly normal, well kempt and not disheveled Medical Decision Making Medical Decision Making MDM Narrative: 73-year-old female presents to ED for left hip pain for 1 month since falling. X-ray pending. 2:52pm: X-ray shows osteoarthritis. Negative for fractures. Not suspecting DVT, cellulitis, arterial occlusion, compartment syndrome, necrotizing fasciitis, osteomyelitis, or dislocation. Patient explained worrisome signs informed to return to the ED immediately. Differential Diagnosis Differential Diagnoses: The differential diagnosis associated with the presentation includes (Fracture. Dislocation.) Admission/Observation Consideration of admission/observation: Escalation of care including admission/observation considered Independent Interpretation I performed an independent interpretation of an: Plain X-Ray Radiology Impression Discussion of test interpretation with radiology: I have reviewed the radiologist's reading. Radiologist Impression: [id number] [place] [address] XRay Report Signed Patient: Erica Rowley MR#: [id number] : 1950 Acct:[id number] Age/Sex: 73 / F ADM Date: 08/18/24 Loc: HO.ED Attending Dr: Ordering Physician: Alex Hoffmann Date of Service: 08/18/24 Procedure(s): XR hip LT w PEL1V Accession Number(s): [id number] cc: Alex Hoffmann; Imani Fu MD~ EXAMINATION: XR HIP, LEFT CLINICAL INFORMATION: Left hip pain following a fall. Question fracture. COMPARISON: None available. TECHNIQUE: AP view the pelvis as well as AP and frog-leg lateral views of the left hip. FINDINGS: No acute fracture or dislocation. Mild left hip joint space narrowing with tiny marginal osteophytes. No osseous erosion. No concerning lytic or blastic osseous lesion. No evidence of femoral head avascular necrosis. Phleboliths within the pelvis. XR/XR hip LT w PEL1V IMPRESSION: 1. No acute fracture or dislocation. 2. Mild left hip osteoarthritis. Electronically signed by: Parviz Pinedo MD 08/18/2024 02:35 PM [facility] Dictated By: Parviz Pinedo MD Signed By: <Electronically signed by Parviz Pinedo MD in OV> 08/18/24 1435 DD/ 1220 TD/TT: 08/18/24 1250 Tip Printer: Independent Historian Clinical information obtained from an independent historian. History obtained from or confirmed by: Other (Patient) External Record Review External record reviewed: Other (Private visits) Prescription Management I considered prescription management with: Pain Medication Discharge Plan Discharge Clinical Impression: Hip osteoarthritis Patient Disposition: Home, Self-Care Instructions: Osteoarthritis (ED) Additional Instructions: X-ray shows severe arthritis. You will need follow-up with your primary care provider. Return to the ED for immediately for any severe pain, swelling, redness, bluish black discoloration, red streaks, hot, cold, inability to walk, or any other concerning symptoms. Continue taking Tylenol as needed for pain relief. FINDINGS: No acute fracture or dislocation. Mild left hip joint space narrowing with tiny marginal osteophytes. No osseous erosion. No concerning lytic or blastic osseous lesion. No evidence of femoral head avascular necrosis. Phleboliths within the pelvis. XR/XR hip LT w PEL1V IMPRESSION: 1. No acute fracture or dislocation. 2. Mild left hip osteoarthritis. Electronically signed by: Parviz Pinedo MD 08/18/2024 02:35 PM [facility] Prescriptions: New prednisone 20 mg tablet 40 mg PO DAILY 5 Days Qty: 10 0RF No Action metoprolol succinate 25 mg tablet extended release 24 hr 25 mg PO DAILY cyanocobalamin (vitamin B-12) [Vitamin B-12] 1,000 mcg tablet 1,000 mcg PO DAILY PreserVision AREDS-2 250-90-40-1 mg capsule 1 cap PO BID polyvinyl alcohol [Artificial Tears (polyvin alc)] 1.4 % drops 1 drp ophthalmic (eye) DAILY Thera-M 9 mg iron-400 mcg tablet 1 tab PO BID omeprazole 20 mg capsule,delayed release(DR/EC) 20 mg PO DAILY sennosides [Evac-U-Gen (sennosides)] 8.6 mg tablet 8.6 mg PO BEDTIME Qty: 30 3RF cholecalciferol (vitamin D3) 25 mcg (1,000 unit) tablet 25 mcg PO DAILY calcium carbonate 600 mg calcium (1,500 mg) tablet PO DAILY alendronate 70 mg tablet 70 mg PO QWEEK carboxymethylcellulose sodium [Lubricant Eye Drops] 0.5 % drops ophthalmic (eye) docusate sodium 100 mg capsule 100 mg PO BID melatonin 5 mg capsule PO BEDTIME PRN bisacodyl [Dulcolax (bisacodyl)] 5 mg tablet,delayed release (DR/EC) 20 mg PO ONCE 1 Days Qty: 4 0RF Rx Instructions: take 4 tabs at noon the day before your colonoscopy polyethylene glycol 3350 [Miralax] 17 gram/dose powder 238 g PO ONCE Qty: 238 0RF Rx Instructions: As directed by gastroenterology department at [facility] Interventions: ED Discharge Assessment Last Done: 08/18/24 15:12 Discharge Date/Time: 08/18/24 15:14 Print Language: Irish
[2024-08-18 14:32] VITALS: BP 148/75; PULSE 86; RESP 16; TEMP 36.6; O2SAT 99
[2024-08-18 15:12] VITALS: BP 148/77; PULSE 86; RESP 16; TEMP 36.4; O2SAT 98
== END 2024-08-18 15:14 | disposition home or self-care (01) ==
PROVIDERS: Emergency Provider Student in an Organized Health Care Education/Training Program; PCP Family Medicine
DX: M16.12 Unilateral primary osteoarthritis, left hip (principal); M25.552 Pain in left hip; K21.9 Gastro-esophageal reflux disease without esophagitis; I10 Essential (primary) hypertension; Z79.899 Other long term (current) drug therapy
CPT/HCPCS: 73502; 99282; 99283

== ENCOUNTER 2024-09-13 14:05 | Outpatient (REF) | payer OTHER, SELFPAY ==
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
== END 2024-09-13 14:06 | disposition home or self-care (01) ==
LOC: HO.MAMMO 14:05
PROVIDERS: PCP Family Medicine; Visit Provider Family Medicine
DX: Z12.31 Encounter for screening mammogram for malignant neoplasm of breast (principal)
CPT/HCPCS: 77063; 77067

== ENCOUNTER → 2024-09-13 15:00 | Outpatient (BNV) | payer OTHER, SELFPAY | PROVIDERS: PCP Family Medicine; Visit Provider Internal Medicine | DX: Z12.31 Encounter for screening mammogram for malignant neoplasm of breast (principal) | CPT/HCPCS: 77063; 77067 ==

== ENCOUNTER 2024-10-23 10:23 | Outpatient (REF) | payer OTHER, SELFPAY ==
--- NOTE | ~2024-10-23 | MM_ITS ---
EXAMINATION: MM DIAGNOSTIC DIGITAL BREAST TOMOSYNTHESIS, BILATERAL Bilateral Limited ultrasound. CLINICAL INFORMATION: Right breast focal asymmetry and left breast focal asymmetries. COMPARISON: Mammography: Comparison is made with relevant prior exams. TECHNIQUE: Digital breast mammography with tomosynthesis is performed in both the craniocaudal and mediolateral oblique views along with computer-aided detection (CAD). bilateral Limited ultrasound. FINDINGS: The breasts are heterogeneously dense, which may obscure small masses (ACR BI-RADS breast composition Category c). Right: There is a developing focal asymmetry in the upper outer breast posterior depth with associated architectural distortion. No suspicious calcifications or other abnormal findings. Targeted color Doppler ultrasound scanning from 7-12 o'clock in the lateral right breast demonstrates normal fibronodular breast tissue. There is no sonographic correlate for the focal asymmetry with distortion on mammography. Left: Focal asymmetry upper outer breast posterior depth. Asymmetry superior breast anterior to middle depth on MLO view. Targeted color Doppler ultrasound scanning from 12-6 o'clock in the lateral left breast demonstrates a hypoechoic oval circumscribed solid mass versus complicated cyst at 2:00 12 cm from nipple measuring 12 x 6 x 10 mm this is a questionable correlate for the focal asymmetry in the upper outer breast on mammography. Otherwise there is normal fibronodular breast tissue. Results are provided to the patient at time of visit by the technologist. MM/MM tomosynthesis diagnostic BI IMPRESSION: Right: Focal asymmetry with architectural distortion without sonographic correlate in the upper outer quadrant. Recommend stereotactic core needle biopsy at this time. The findings and recommendations were discussed with the patient the procedure will be scheduled. Left: 1. Focal asymmetry in the upper outer quadrant and asymmetry in the superior breast anterior depth on MLO view, 6 month follow-up mammography for further evaluation of stability. 2. Solid mass versus complicated cyst on ultrasound at 2:00 recommend 6 month follow-up ultrasound for further evaluation of stability. ASSESSMENT: BI-RADS BI-RADS 4 - Suspicious finding RECOMMENDATION: Biopsy recommended This patient's information was entered into a reminder system with a target due date for their next mammogram. Electronically signed by: Jayda Munson DO 10/23/2024 12:35 PM [facility]
== END 2024-10-23 10:24 | disposition home or self-care (01) ==
LOC: HO.MAMMO 10:23
PROVIDERS: PCP Family Medicine; Visit Provider Family Medicine
DX: N64.89 Other specified disorders of breast (principal); R92.333 Mammographic heterogeneous density, bilateral breasts; N63.21 Unspecified lump in the left breast, upper outer quadrant
CPT/HCPCS: 76642; 77062; 77066

== ENCOUNTER → 2024-10-23 10:45 | Outpatient (BNV) | payer OTHER, SELFPAY | PROVIDERS: PCP Family Medicine; Visit Provider Internal Medicine | DX: N63.25 Unspecified lump in the left breast, overlapping quadrants (principal); R92.333 Mammographic heterogeneous density, bilateral breasts | CPT/HCPCS: 76642; 77066; G0279 ==

== ENCOUNTER 2024-12-05 11:23 | Outpatient (AMB) | payer OTHER, SELFPAY ==
--- NOTE | 2024-12-05 11:18 | A.OFFVIS_ITS ---
Vital Signs 12/05/24 11:19 Height 5 ft Weight 148 lb 2 oz BMI 28.9 BP 158/68 H Blood Pressure Location Lt brachial Position Sitting Pulse 80 Intake Visit Reasons: Rt br stereotactic bx Intake Note: Patient is seen in office for stereotactic biopsy CONSULT, right breast mass. 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 Services: [employer] Present [employer] Name: Valencia HARRELL Information Interpreted: non-clinical & clinical Pharmacy Helper: Pharmacy Helper Present Accompanied by: Other Relationship Allergies No Known Allergies Allergy (Verified 12/05/24 11:18) Medication List - Last Reconciled 12/05/24 by Jah Galarza MD alendronate 70 mg PO QWEEK bisacodyl (Dulcolax (bisacodyl)) 20 mg (4 x 5 mg) PO ONCE 1 day calcium carbonate mg PO DAILY carboxymethylcellulose sodium 0.5% (Lubricant Eye Drops) drps ophthalmic (eye) cholecalciferol (vitamin D3) 25 mcg PO DAILY cyanocobalamin (vitamin B-12) (Vitamin B-12) 1,000 mcg PO DAILY docusate sodium 100 mg PO BID melatonin mg PO BEDTIME PRN metoprolol succinate ER 25 mg PO DAILY wdotdfas-ygrw-MI-calcium-mins 9 mg iron-400 mcg (Thera-M) 1 tab PO BID omeprazole 20 mg PO DAILY polyethylene glycol 3350 (Miralax) 238 grams PO ONCE polyvinyl alcohol 1.4% (Artificial Tears (polyvinyl alcohol)) 1 drp ophthalmic (eye) DAILY prednisone 40 mg (2 x 20 mg) PO DAILY 5 days sennosides (Evac-U-Gen (sennosides)) 8.6 mg PO BEDTIME vit C,U-Qg-fhwux-lutein-zeaxan 250-90-40-1 mg (PreserVision AREDS-2) 1 cap PO BID HPI Comments Details: 73-year-old female patient presenting with a recent mammogram performed on 09/13/2024 which revealed bilateral asymmetries for which additional imaging was recommended. She subsequently returned for diagnostic mammogram on 10/23/2024 with ultrasound. In the right breast a focal asymmetry with architectural distortion was identified at the upper outer quadrant. No ultrasound correlate was identified. This was felt to be suspicious for malignancy and stereotactic guided core biopsy was recommended. In the left breast several low suspicion areas of asymmetry were identified for which six-month follow-up mammograms were recommended. She reports a prior history of a left breast biopsy many years ago in [place] which was benign. She does report some pain in the right breast at the upper outer quadrant especially after the mammogram. She is She is not able to tolerate the prone biopsy table for the stereotactic guided core biopsy. She will need to be scheduled for procedure at an upright facility. [facility] Medical History External hemorrhoids Constipation Gout Tachycardia HTN (hypertension) GERD (gastroesophageal reflux disease) Surgical History Hx of colonoscopy Family History Sister Diabetes HTN (hypertension) Social History Alcohol intake: never Patient Tobacco Use Status: Never used Tobacco service: No Current occupational status: retired Female Reproductive History Menstrual Age of Menarche: 14 Age of menopause: 49 Total pregnancies: 3 Number of Living Children: 3 Review of Systems Const All systems reviewed & are unremarkable except as noted in HPI and below Physical Exam Vital Signs: Last Vital Signs Pulse 80 12/05/24 11:19 BP 158/68 H 12/05/24 11:19 BMI result Body Mass Index 28.9 Const General: cooperative and no acute distress Nutritional Appearance: well nourished Orientation/consciousness: patient oriented x3 Limitations: no limitations HEENT Head: Yes normocephalic and Yes atraumatic Ears: hearing grossly normal bilaterally Chest Other: Left breast: No skin change, no nipple retraction, no nipple discharge, no palpable mass, no enlarged lymph nodes. Some tenderness noted in the upper outer quadrant. Right breast: No skin change, no nipple retraction, no nipple discharge, no palpable mass, no enlarged lymph nodes. Some tenderness noted in the upper outer quadrant. Resp Effort & Inspection: normal respiratory effort, no audible wheezes, no cough and no respiratory distress Cardio Jugular venous distension: no JVD GI Inspection: Yes normal to inspection Skin Other: Warm, dry, no rash Neuro General: patient oriented x3 Extrem General: Yes no clubbing, cyanosis or edema Assessment & Plan Assessment & Plan (1) Abnormal mammogram of right breast: Code(s): R92.8 - Other abnormal and inconclusive findings on diagnostic imaging of breast Category: Medical Plan 73-year-old female patient presenting with a recent mammogram which revealed an asymmetric density with architectural distortion in the upper outer quadrant of the right breast. This was felt to be suspicious for malignancy in biopsy recommended. She also has an area in the left breast which was felt to be low suspicion and a six-month follow-up mammogram is recommended. She will be scheduled for an upright stereotactic guided core biopsy and should return approximately 1 week following the procedure to review the pathology results. S he expressed understanding and agrees with the plan. Orders: Orders MM stereotactic biopsy RT Today R92.8 - Other abnormal and inconclusive findings on diagnostic imaging of breast Coding Level of Care Code New Pt Level 4 (91253) Diagnoses Abnormal mammogram of right breast R92.8
[2024-12-05 11:19] VITALS: BP 158/68; PULSE 80; BMI 28.9
--- OUTSIDE RECORDS SUMMARY | 2024-12-05 14:21 | XMS_ITS | Data Portability ---
Author Organization [facility] [facility], [place] in - [employer] Address [address] [place] [address] Care Team Providers Care Sales Representative Facility Services Name Role Phone [facility] Referring Provider [phone] [facility] Referring Provider Assessment Encounter Date Assessment Date [...] Not Available No t Available Artificial Tears (ae588-uwvwuvg ll-glycerin) 1 %-0.2 %-0.2 % eye drops [...] Diagnosis/Indication Diagnosis SNOMED-CT Code Diagnosis ICD10 Code Diagnosis Note [id number] Maxim Newell MD Main - [address] [phone] 11/16/2022 16:12:57 11/18/2022 10:38:01 Laceration of lower leg [id number] S81.811A [id number] Joseph Mays MD Main - [address] [phone] 07/23/2023 14:23:38 07/24/2023 17:50:08 Pain of left breast [id number] N64.4 This 72-year-ol d female has a long history of left breast pain of uncertain etiology. Her mammograms have always been negative. Her pain is controlled with Tylenol. [facility] was called because there was a report of a breast mass, but none was found today. She will follow-up with her PCP. The patient agreed with this plan. Health Concerns Section Related Observation LastModified by Organization Detai ls LastModified Time None Recorded Concern Status LastModified by Organization Details LastModified Time None Recorded Advance Directives Directive None Recorded Payers Encounter Date Sequence Insurance Name Policy Number Policy Elizondo Covered Member ID Elizondo Member ID Guarantor Name 11/16/2022 1 [facility] - DOS PRIOR TO 2023 - DUAL ELIGIBLE (MEDICARE REPLACEMENT/ADV ANTAGE - HMO) Erica fischer [id number] Erica moeller 07/23/2023 1 [facility] - DOS ON OR AFTER 2023 - DUAL ELIGIBLE - USP OPTIONS AND ONE CARE (MEDICARE REPLACEMENT/ADV ANTAGE - HMO) Erica fischer [id number] Erica moeller Notes Date Note Type Note [...] .................. .................. .................. .................. .................. .................. ............... Quenching Machine Operator Note From Uday Rodriguez: Pt presents awake [...] red. 911 initiated and pt transported to [facility] ED via [place] [facility] to r/o compartment syndrome. .................. .................. .................. .................. .................. .................. .................. ............... Disposition: Fulfilled Maxim Newell MD [address] [place] [address],[address] [facility], [place], [address], [employer] 11/16/2022 18:53:50 07/23/2023 text/html HPI: Hx: Anxiety depression,Gerd. Feels a firm lump in left breast painful. No apparent redness or nipple drainage. .................. .................. .................. .................. .................. .................. .................. ............... CRC Nursing Assessment: Comments: CRC RN DID NOT NEED FURTHER INFO Joseph Mays MD [address] [facility],[address] [facility], [place], [address], [employer] 07/23/2023 14:28:38 OBGyn Episode No OBEpisode recorded.
--- OUTSIDE RECORDS SUMMARY | 2024-12-05 14:21 | XMS_ITS | Encounter Summary ---
Author Organization [employer] Address [address] [place] [address] [address] [place] [address] Care Team Providers Care Pick And Shovel Man Name Role Phone Imani Fu MD Primary Care Provider [phone] Encounter Details Date Type Department Care Team (Late st Contact Info) Description 03/02/2023 [facility] Information Management [address] [place], [place] [phone] Toan Hogue AGNP Social History Tobacco Use Types Packs/Day Years Used Date Smoking Tobacco: Never Assessed Comments Unknown Sex and Gender Information Value Date Recorded Sex Assigned at Female 08/03/2022 10:25 AM EDT Legal Sex Female 10:25 AM EDT Gender Identity Female 08/03/2022 10:25 AM EDT Sexual Orientation Straight 08/03/2022 10 :25 AM EDT documented as of this encounter Plan of Treatment Not on file documented as of this encounter Visit Diagnoses Not on filedocumented in this encounter Care Teams Pick And Shovel Man Relationship Specialty Start Date End Date Imani Fu MD [address] [place], [place] [phone] PCP - General Family Medicine 03/16/23 documented as of this encounter
--- OUTSIDE RECORDS SUMMARY | 2024-12-05 14:21 | XMS_ITS | Encounter Summary ---
Author Organization [employer] Address [address] [facility] [address] [place] [address] Care Team Providers Care Director Selection And Administration Name Role Phone Toan Hogue Primary Care Provider Unavail able Imani Fu MD Primary Care Provider Imani Fu MD Primary Care Provider [phone] Reason for Visit * Reason Onset Date Comments Referral 11/27/2022 Encounter Details Date Type Department Care Team ([facility] st Contact Info) Description 11/27/[address] [facility] MEDICINE [address] [place], [place] [phone] Toan Hogue AGNP Referral Social History Tobacco Use Types Packs/Day Years Used Date Smoking Tobacco: Never Assessed Comments Unknown Sex and Gender Information Value Date Recorded Sex Assigned at Female 08/03/2022 10:25 AM EDT Legal Sex Female 10:25 AM EDT Gender Identity Female 08/03/2022 10:25 AM EDT Sexual Orientation Straight 08/03/2022 10 :25 AM EDT COVID-19 Exposure Response Date Recorded In the last 10 days, have yo u been in contact with someone who was confirmed or suspected to have Coronavirus/COVID-19? No / Unsure 11/20/2022 9:19 AM EST documented as of this encounter Miscellaneous Notes * Telephone Encounter - Nicolas Wolf - 11/27/2022 3:58 PM EST Tc from balwinder requesting a referral to be seen at [facility]. Please contact balwinder at [phone] documented in this encounter Plan of Treatment Not on file documented as of this encounter Visit Diagnoses Not on filedocumented in this encounter Care Teams Director Selection And Administration Relationship Specialty Start Date End Date Toan Hogue AGNP PCP - General Family Medicine 08/24/22 01/12/23 Imani Fu MD [address] [place] [address] PCP - General Family Medicine 01/13/23 02/10/23 Imani Fu MD [address] [place] [address] PCP - General Family Medicine 03/16/23 documented as of this encounter
--- OUTSIDE RECORDS SUMMARY | 2024-12-05 14:21 | XMS_ITS | Clinical Summary ---
Author Organization [facility] Address [address] [place] [address] Phone Care Team Providers Care Informatics Consultant Name Role Phone Chan Davies MD Primary Care Provider [phone] Allergies No known active allergies Medications diclofenac (VOLTAREN) 1 % topical gel Apply 1 applicator topically 3 (three) times a day. 2 Active metoprolol tartrate (LOPRESSOR) 25 mg tablet 1 Active omeprazole (PriLOSEC) [address] capsule Take 1 capsule (40 mg total) by mouth 1 (one) time each day. 1 Active acetaminophen (TYLENOL) 500 mg tablet Take 2 tablets (1,000 mg total) by mouth every 6 (six) hours if needed for mild pain. 6 Active multivit-minera ls/folic acid (CENTRUM ADULTS ORAL) Take 1 tablet by mouth 1 (one) time each day. 7 Active Active Problems Problem Noted Date Diagnosed Date Atrophic vaginitis 12/12/2020 Dysuria 12/12/2020 Varicose veins of both lower extremities 019 Chronic hepatitis C virus infection 06/01/2018 Esophageal reflux 06/01/2018 Depression with anxiety 05/24/2018 Intertrigo 11/19/2017 Macromastia 11/19/2017 Osteoporosis 08/25/2017 Encounters Date Type Department Care Team Description 10/09/2024 11:23 AM EST - 10/09/2024 11:59 PM EST Hospital Encounter [facility] Xray [address] [place] [address] Pain in left hip Discharge Disposition: Home or Self Care from Last 3 Months Medical History Medical History Date Comments Arthritis DX:Arthritis Macromastia 11/19/2017 DX:Macromastia Intertrigo 11/19/2017 DX:Intertrigo Family History Medical History Relation Name Comments Diabetes Mother Relation Name Status Comments Father truck accident Mother Social History Tobacco Use Types Packs/Day Years Used Date Smoking Tobacco: Former Smokeless Tobacco: Never Alcohol Use Standard Drinks/Week Comments No 0 (1 standard drink = 0.6 oz pur e alcohol) Comments Unknown Sex and Gender Information Value Date Recorded Sex Assigned at Not on file Legal Sex Female 8:29 AM EST Gender Identity Not on file Sexual Orientation Not on file Obstetrics History Last Filed Vital Signs Vital Sign Reading Time Taken Comments Blood Pressure 116/66 06/29/2024 9:59 AM EDT R A rm Pulse 87 06/29/2024 9:59 AM EDT Temperature - - Respiratory Rate - - Oxygen Saturation - - Inhaled Oxygen Concentration - - Weight 68.9 kg (152 lb) 06/29/2024 9:59 AM EDT Height 154.9 cm (5' 1 ) 06/29/2024 9:59 AM EDT Body Mass Index 28.72 06/29/2024 9:59 AM EDT Plan of Treatment Health Maintenance Due Date Last Done Comments Hepatitis A Vaccines (1 of 2 - Risk 2-dose series) 1968 Pneumococcal Vaccine: 50+ Years (1 of 2 - PCV) 1968 Zoster Vaccines (1 of 2) 1968 RSV Immunization Patients 60 + Years Old (1 - Risk 60-74 years 1-dose series) 2009 Hepatitis B Vaccines (3 of 3 - Risk 3-dose series) 02/07/2015 09/14/2014, 08/10/2014 Colorectal Cancer Screening: Colonoscopy 09/06/2022 Falls Risk Assessment 09/06/2022 Medicare Annual Wellness Visit 09/06/2022 Osteoporosis Screening (Bone Density Screening) 09/06/2022 Social Influencers of Health Screening 09/06/2022 COVID-19 Vaccine (2 - Pfizer risk series) 11/05/2022 10/15/2022 Breast Cancer Screening 11/13/2023 11/13/19, 01/23/2019 Influenza Vaccine (#1) 2024 Hypertension/CHF/CAD Annual BMP Blood Test 10/09/2024 09/18/2021 Depression Screening 10/06/2025 10/06/2024 Cholesterol Screening (Lipid Panel) 01/20/2029 01/21/2024, 11/28/2020 DTaP,Tdap,and Td Vaccines (2 - Td or Tdap) 06/26/2032 06/26/2022 Hepatitis C Screening Completed 09/18/2021 HIB Vaccines Aged Out No longer eligi ble based on patient's age to complete this topic HPV Vaccines Aged Out No longer eligi ble based on patient's age to complete this topic IPV Vaccines Aged Out No longer eligi ble based on patient's age to complete this topic MMR Vaccines Aged Out No longer eligi ble based on patient's age to complete this topic Meningococcal ACWY Vaccine Aged Out N o longer eligible based on patient's age to complete this topic Meningococcal B Vacine Aged Out No lo nger eligible based on patient's age to complete this topic RSV Immunization Patients Under 20 months Aged Out No longer eligible b ased on patient's age to complete this topic Varicella Vaccines Aged Out No longer eligible based on patient's age to complete this topic Procedures Procedure Name Priority Date/Time Associated Diagnosis Comments XR HIP 2-3 VIEWS LEFT Routine 10/09/2024 11:46 AM EST Pain in left hip HEPATITIS C SCREENING Routine 09/18/2021 ANNUAL BMP BLOOD TEST Routine 09/18/2021 LIPID PANEL Routine 11/28/2020 ODELL SCREENING DIGITAL Routine 01/23/2019 1:47 PM EDT Encounter for screening mammogram for malignant neoplasm of breast from Last 3 Months or Most Recently Relevant to Health Maintenance Results * XR Hip 2-3 Views Left (10/09/2024 11:46 AM EST) Anatomical Region Laterality Modality Lower Extremities, Hip Left Radiograp hic Imaging 10/09/2024 12:0 3 PM EST Impressions 10/09/2024 12:04 PM EST No acute findings. Mild osteoarthritis of both hips. There is evidence of calcific tendinitis of the right hip. Code 72765 -------- FINAL REPORT -------- Dictated By: Kirby Trevino Dictated Date: 10/09/2024 12:03 ET Assigned Physician: Kirby Trevino Reviewed and Electronically Signed By: Kirby Trevino Signed Date: 10/09/2024 12:04 ET Workstation ID: [id number] Transcribed By: Self Edit Transcribed Date: 10/09/2024 12:03 ET Narrative 10/09/2024 12:04 PM EST HISTORY: The patient is a 73-year-old female with left hip pain for several months. No history of trauma is provided. FINDINGS: AP radiograph of the pelvis, along with coned-down AP and external rotation-abduction views of the left hip, are obtained. The study demonstrates no fracture, dislocation, or osteolytic or osteoblastic lesion. There are small marginal osteophytes of the hips bilaterally consistent with mild osteoarthritis. A soft tissue calcification is present adjacent to the greater trochanter of the right femur consistent with calcific tendinitis. Procedure Note Kirby Trevino MD - 10/09/2024 HISTORY: The patient is a 73-year-old female with left hip pain forseveral months. No history of trauma is provided. FINDINGS: AP radiograph of the pelvis, along with coned-down AP andexternal rotation-abduction views of the left hip, are obtained. The studydemonstrates no fracture, dislocation, or osteolytic or osteoblasticlesion. There are small marginal osteophytes of the hips bilaterallyconsistent with mild osteoarthritis. A soft tissue calcification ispresent adjacent to the greater trochanter of the right femur consistentwith calcific tendinitis. IMPRESSION: No acute findings. Mild osteoarthritis of both hips. There is evidence ofcalcific tendinitis of the right hip. Code 78765 -------- FINAL REPORT -------- Dictated By: Kirby Trevino Dictated Date: 10/09/2024 12:03 ET Assigned Physician: Kirby Trevino Reviewed and Electronically Signed By: Kirby Trevino Signed Date: 10/09/2024 12:04 ET Workstation ID: [id number] Transcribed By: Self Edit Transcribed Date: 10/09/2024 12:03 ET Result [facility] Imani Fu MD IMG XR PROCEDURES Final Resul t * Annual BMP Blood Test (09/18/2021) Pathologist [facility] Annual BMP Blood Test abstracted Historical Provider HEALTH MAINTENANCE Final Result * Hepatitis C Screening (09/18/2021) [facility] Hepatitis C Screening abstracted Historical Provider HEALTH MAINTENANCE Final Result * Lipid panel (11/28/2020) [facility] LDL/HDL Ratio 2 0 - 4 Triglycerides 135 0 - 150 mg/dL Cholesterol 174 0 - 200 mg/dL HDL 82 >=40 mg/dL LDL Cholesterol 65 0 - 100 mg/dL Blood Venous blood specimen / Unknown Result [facility] Historical Provider LAB BLOOD ORDERABLES Charlotte l Result * ODELL SCREENING DIGITAL (01/23/2019 1:47 PM EDT) Anatomical Region Laterality Modality Mammography 01/23/2019 10:5 5 AM EDT Narrative 01/23/2019 1:47 PM EDT [facility] Diagnostic Imaging Department [address] [place], [place] [id number] Patient: ??ERICA ABREU ?/Age/Sex: 1950 - 68 - F Unit#: ??[id number] ? Location/Status: ??SPDIMAM/REG CLI ? Mnemonic/Ordering Site: ??DIGSC/SPMAM Ordering Physician: ??ALBARO FRYE MD [facility] Screening Digital - 01/23/19 - 1124 INDICATION: SCREENING COMPARISON: 09/22/2017 and additional outside mammograms obtained annually dating back to 01/08/2014 TECHNIQUE: CC and MLO views of the breasts were obtained, using full field digital mammography with 3D tomosynthesis views in the MLO projection. Computer aided detection with the [employer] 7.2-H was employed. Benign left breast biopsy in 2013 reported. FINDINGS: The breasts are almost entirely composed of fat. Metallic biopsy marker is seen within the central left breast lateral to the nipple line. No suspicious masses, suspicious microcalcifications, or areas of architectural distortion are identified. ??Benign-appearing breast calcifications are present bilaterally. There are no secondary signs of breast malignancy. ??Compared to the prior exam, no adverse interval change. IMPRESSION: ??No specific mammographic evidence of breast malignancy. Lack of an imaging correlate should not deter or delay biopsy of a clinically significant palpable finding. BI-RADS ??- Category 2 - Benign finding 3342F, 7025F Annual screening mammography is recommended. Patient entered into a reminder system with a target date for the next mammogram. ([id number] / [id number]) , ??[id number] Dictating Physician: ??SOURAV CASEY MD Electronically Signed by: ??SOURAV CASEY MD Dic Date/Time: ??01/23/19 1343 Sign date/Time: ??01/23/19 1347 Procedure Note Sourav Casey MD - 09/22/2022 [facility] Diagnostic Imaging Department [address] [place] [id number] Patient: ANNEMARIE NUÑEZERICA /Age/Sex: 1950 - 68 -F Unit#: [id number] Location/Status: SPDIMAM/REG CLI Mnemonic/Ordering Site: [facility] Ordering Physician: ALBARO FRYE MD [facility] Screening Digital - 01/23/[id number] INDICATION: SCREENING COMPARISON: 09/22/2017 and additional outside mammograms obtainedannually dating back to 01/08/2014 TECHNIQUE: CC and MLO views of the breasts were obtained, using full field digital mammography with 3D tomosynthesis views in the MLO projection. Computer aided detection with the [employer] 7.2-[employer]valiant was employed. Benign left breast biopsy in 2013 reported. FINDINGS: The breasts are almost entirely composed of fat. Metallic biopsy marker isseen within the central left breast lateral to the nipple line. No suspicious masses, suspicious microcalcifications, or areas ofarchitectural distortion are identified. Benign-appearing breast calcifications arepresent bilaterally. There are no secondary signs of breast malignancy. Comparedto the prior exam, no adverse interval change. IMPRESSION: No specific mammographic evidence of breast malignancy. Lack of an imaging correlate should not deter or delay biopsy of aclinically significant palpable finding. BI-RADS - Category 2 - Benign finding 3342F, 7025F Annual screening mammography is recommended. Patient entered into a reminder system with a target date for the next mammogram. ([id number] / [id number]) , [id number] Dictating Physician: SOURAV CASEY MD Electronically Signed by: SOURAV CASEY MD Dic Date/Time: 01/23/19 1349 Sign date/Time: 01/23/19 1346 Albaro Frye MD IMG BI PROCEDURES Final Result from Last 3 Months or Most Recently Relevant to Health Maintenance Insurance [employer] MEDICARE Member Subscriber Plan / Payer (Ef fective 2024-Present) Name:Erica Rowley Relation to Subscriber:Self Name:Erica Rowley Payer ID:[id number] Group ID:[id number] Type:Not on file Address: [place] [address] [address] [id number] Care Teams Informatics Consultant Relationship Specialty Start Date End Date Chan Davies MD [address] [place] [address] [phone] PCP - General Internal Medicine 08/21/21
--- OUTSIDE RECORDS SUMMARY | 2024-12-05 14:21 | XMS_ITS | Encounter Summary ---
Author Organization [employer] Address [address] [facility] [address] [place] [address] Care Team Providers Care Canvass Manager Name Role Phone Imani Fu MD Primary Care Provider [phone] Encounter Details Date Type Department Care Team (Late st Contact Info) Description 08/30/2023 Abstract [facility] MEDICINE [address], [place] [id number] Patricia Vilchis Social History Tobacco Use Types Packs/Day Years Used Date Smoking Tobacco: Never Passive Smoke Exposure: Never Smokeless Tobacco: Never Alcohol Use Standard Drinks/Week Comments Never 0 (1 standard drink = 0.6 oz pur e alcohol) Depression Answer Date Recorded Patient Health Questionnaire-9 Score 9 03/16/2023 Housing Stability Answer Date Recorded What is your housing situation today? I have gilles harrison 07/23/[address] you li ve. Do you have problems with any of the following? None of the above 07/23/2023 Food Insecurity Answer Date Recorded Within the past 12 months, y ou worried that your food would run out before you got money to buy more: Never True 07/23/2023 Within the past 12 months,th e food you bought just didn't last and you didn't have enough money to get more: Never True Transportation Answer Date Recorded In the past 12 months, has l ack of transportation kept you from medical appts, meetings, work or from getting things needed for daily living? No 07/23/2023 Utilities Answer Date Recorded In the past 12 months, has t he electric, gas, oil or water company threatened to shut off services in your home? No 07/23/2023 Depression Answer Date Recorded Patient Health Questionnaire-2 Score 2 03/16/2023 Comments Unknown Sex and Gender Information Value Date Recorded Sex Assigned at Female 08/03/2022 10:25 AM EDT Legal Sex Female 10:25 AM EDT Gender Identity Female 08/03/2022 10:25 AM EDT Sexual Orientation Straight 08/03/2022 10 :25 AM EDT documented as of this encounter Plan of Treatment Not on file documented as of this encounter Visit Diagnoses Not on filedocumented in this encounter Additional Health Concerns Assessment Noted Time PHQ-9 Depression Total Score: 9 03/16/20 23 1:19 PM EDT documented as of this encounter Care Teams Canvass Manager Relationship Specialty Start Date End Date Imani Fu MD [address] [place] [address] PCP - General Family Medicine 03/16/23 documented as of this encounter
--- OUTSIDE RECORDS SUMMARY | 2024-12-05 14:21 | XMS_ITS | Clinical Summary ---
Author Organization [facility] [employer] Address [address] [place] [address] Care Team Providers Care Soil Conservation Technician Name Role Phone Imani Fu MD Primary Care Provider [phone] Allergies No known active allergies Medications Artificial Tears 0.2-0.2-1 % solution Use as directed 3 Active ketotifen (Zaditor) 0.025 % ophthalmic solution Place 1 drop in each eye twice daily 3 Active senna (Senokot) 8.6 MG tablet Take 1 tablet by mouth at bedtime 3 Active Multiple Vitamins-Mineral s (Thera-M) tabletIndication s:Osteopenia, unspecified location TAKE 1 TABLET BY MOUTH TWICE A DAY 180 tablet 1 3 Active ketorolac (Acular) 0.5 % ophthalmic solution 3 Active Multiple Vitamins-Mineral s (PreserVision AREDS 2) capsule 3 Active RA Lubricant Eye Drops 0.5 % ophthalmic solution 3 Active calcium carbonate (Calcium 600 High Potency) 600 MG tablet Take 1 tablet (600 mg) by mouth with breakfast and with evening meal. 180 tablet 3 3 Active docusate sodium (Colace) 100 MG capsule TAKE 1 CAPSULE BY MOUTH TWICE DAILY NEEDED 180 capsule 3 Active Diclofenac Sodium (Voltaren Arthritis Pain) 1 % gel Apply 2 g topically if needed in the morning, at noon, in the evening, and at bedtime (pain). Apply to tender areas of feet 50 g 1 4 Active polyethylene glycol, PEG, 3350 (Glycolax) 17 GM/SCOOP powder 3 Active Bisacodyl EC 5 MG EC tablet 3 Active albuterol 108 (90 Base) MCG/ACT inhaler Inhale 2 puffs every 4 (four) hours if needed for wheezing. 18 g 4 01/21/20 25 Active melatonin 5 MG tablet Take 1 tablet (5 mg) by mouth at bedtime. 90 tablet 1 4 Active cholecalciferol (Vitamin D3) 25 MCG (1000 UT) tablet TAKE 1 TABLET (25 MCG) BY MOUTH IN THE MORNING. 30 tablet 10 4 Active calcium carbonate 1500 (600 Ca) MG tablet TAKE 1 TABLET (600 MG) BY MOUTH WITH BREAKFAST AND WITH EVENING MEAL. 60 tablet 11 4 Active alendronate (Fosamax) 70 MG tablet TAKE 1 TABLET (70 MG) BY MOUTH EVERY 7 (SEVEN) DAYS. TAKE IN THE MORNING WITH A FULL GLASS OF WATER, ON AN EMPTY STOMACH, DO NOT TAKE ANYTHING ELSE OR LIE DOWN FOR THE NEXT 30 MIN. 4 tablet 5 4 Active omeprazole (PriLOSEC) [address] capsule TAKE 1 CAPSULE (20 MG) BY MOUTH BEFORE BREAKFAST. TAKE 1 CAPSULE DAILY BEFORE A MEAL 90 capsule 1 4 Active metoprolol succinate XL (Toprol-XL) 25 MG 24 hr tablet TAKE 1 TABLET BY MOUTH EVERY MORNING 90 tablet 1 4 Active cyanocobalamin (Vitamin B-12) 1000 MCG tablet TAKE 1 TABLET BY MOUTH EVERY DAY 30 tablet 5 4 Active diclofenac (Cataflam) 50 MG tablet Take 1 tablet (50 mg) by mouth 3 times daily. 90 tablet 5 Active Active Problems Problem Noted Date Diagnosed Date Left hip pain 10/06/2024 Assessment & Plan (10/06/2024 12:51 PM EST): Pt complaining now of L hip pain, denies trauma, worse with movement. She has hx of R hip severe OA, will send to PT and Xray. Schedule inperson evaluation to help elucidate diagnosis. Future Appointments Date Time Provider Department Center 10/06/2024 1:00 PM Imani Fu MD [facility] 10/11/2024 11:00 AM [facility] SAME DAY CARE [facility] Cervical cancer screening 02/15/2024 Assessment & Plan (02/15/2024 11:50 AM EDT): Difficult to get to cervix, very atrophic vaginal canal. Will discontinue. Denies prior abnormals. Dilated pore of [place] 02/15/2024 Assessment & Plan (02/15/2024 11:50 AM EDT): Referral to skin clinic, right axillary area Heart failure, unspecified H F chronicity, unspecified heart failure type 10/11/2023 Right hip pain 09/06/2023 Assessment & Plan (01/21/2024 11:52 AM EDT): Patient has severe arthritis of the right hip pain. . Patient is completely incapable of standing up from a regular arm chair or any chair in her home. Once standing, the patient is able to ambulate with assistance (cane) and has tried all the appropriate therapeutic modalities to enable the patient to transfer from a chair to a standing position been tried and failed. Needs PT/OT referral for assessment of medical necessity Assessment & Plan (10/11/2023 4:35 PM EST): Recommended patient to get imaging done. Assessment & Plan (09/06/2023 12:01 PM EST): Decrease abd. however, hip exam was normal. Therefore, patient that presented visit complaints of R Hip pain will be sent for imaging: XR Hip View and XR Lumbar Spine. Osteoporosis 05/14/2023 Assessment & Plan (10/11/2023 4:34 PM EST): Recommended compliance with alendronate & calcium/vit D. Assessment & Plan (05/14/2023 1:04 PM EDT): Will start on alendronate 70 mg. Advised patient to take sitting up and remain in seated position for 30 minutes after taking medication. Advised patient of potential side effects and reasons to RTC. Will start on calcium 600 mg and vitamin D 1000 MCG. Benign essential hypertension 06/26/2022 Assessment & Plan (10/11/2023 4:34 PM EST): Controlled. Continue current regimen, f/up 4 months for HTN Assessment & Plan (09/06/2023 12:01 PM EST): Uncontrolled: patient presented visit with a mild elevated blood pressure with readings of 144/80 mmHg. However, will not make nay changes at this time. Recommended to keep monitoring blood pressure at home, and bring readings upon next office visit. -If home readings are elevated, will be treating with medications. Dysuria 12/12/2020 Atrophic vaginitis 12/12/2020 Varicose veins of both lower extremities 019 Chronic hepatitis C virus infection 06/01/2018 Depression with anxiety 05/24/2018 GERD (gastroesophageal reflux disease) 6 Resolved Problems Problem Noted Date Diagnosed Date Resolved Date Osteopenia 04/03/2013 05/14/2023 Overview (11/06/2022): DEXA 04/03/13 at [facility]= osteopenia femoral neck Encounters Date Type Department Care Team Description 11/02/[address] [facility] [address] [place] [address] Imani Fu MD triage 10/23/[address] [facility] [address] [place] [address] Imani Fu MD 10/11/2024 11:00 AM EST Office Visit 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 [address] [place] [address] Imani Fu MD Results 10/09/2024 Telephone [facility] [address] [place] [address] Imani Fu MD call back requested 10/09/2024 Telephone [facility] [address] [place] [address] Imani Fu MD 10/06/2024 1:00 PM EST Telemedicine [facility] [address] [place] [address] Imani Fu MD Left hip pain (Primary Dx) 10/06/2024 Travel 10/05/[address] [facility] [address] [place], [place] [phone] Imani Fu MD Walk-In 09/20/[address] [facility] [address] [place], [place] [phone] Imani Fu MD Results from Last 3 Months Immunizations Name Administration Dates Next Due Hep B, adult 09/14/2014,08/10/2014 Tdap 06/26/2022 Family History Medical History Relation Name Comments Diabetes Mother Relation Name Status Comments Mother Social History Tobacco Use Types Packs/Day Years Used Date Smoking Tobacco: Never Passive Smoke Exposure: Never Smokeless Tobacco: Never Tobacco Cessation:Counseling Given: Not Answered Alcohol Use Standard Drinks/Week Comments Never 0 (1 standard drink = 0.6 oz pur e alcohol) Depression Answer Date Recorded Patient Health Questionnaire-9 Score 1 10/06/2024 Patient Health Questionnaire-9 Score 1 10/06/2024 Last PHQ-9: Questionnaire Data Not on file 0 10/06/2024 Housing Stability Answer Date Recorded What is [...] Answer Date Recorded Patient Health Questionnaire-2 Score 0 10/06/2024 Comments No Sex and Gender Information Value Date Recorded Sex Assigned at Female 08/03/2022 10:25 AM EDT Legal Sex Female 10:25 AM EDT Gender Identity Female 08/03/2022 10:25 AM EDT Sexual Orientation Straight 08/03/2022 10 :25 AM EDT Last Filed Vital Signs Vital Sign Reading Time Taken Comments Blood Pressure 148/61 10/11/2024 11:24 AM EST Pulse 80 10/11/2024 11:24 AM EST Temperature 36.7 ??C (98.1 ??F) 10/11/2024 11:[address] Respiratory Rate 20 10/11/2024 11:24 AM EST Oxygen Saturation 97% 10/11/2024 11:24 AM EST Inhaled Oxygen Concentration - - Weight 68.9 kg (152 lb) 10/11/2024 11:24 AM EST Height 149 cm (4' 10.66 ) 10/11/2024 11:24 AM ES T Body Mass Index 31.06 10/11/2024 11:24 AM EST Plan of Treatment Health Maintenance Due Date Last Done Comments CT Colonography 1950 Colonoscopy 1950 Colorectal Cancer Screening 1950 FIT DNA/Cologuard 1950 FIT 1950 FOBT 1950 Sigmoidoscopy 1950 Alcohol/Substance Use Screening 1961 Pneumococcal Vaccine: 50+ Years (1 of 2 - PCV) 1968 Zoster Vaccines (1 of 2) 12/25/1999 RSV Patients and Patients Aged 60 years or older (1 - Risk 60-74 years 1-dose series) 2009 Hepatitis B Vaccines (3 of 3 - Risk 3-dose series) 02/07/2015 09/14/2014, 08/10/2014 Bone Density Scan 04/05/2024 COVID-19 Vaccine (2 - 2023-2 5 season) 2024 10/15/2022 Influenza Vaccine (#1) 2024 Diagnostic Breast Imaging 11/23/20242024, 10/23/2024 SDOH Screening 01/12/2025 01/13/2024 Depression Screening 10/06/2025 10/06/2024, 10/06/2024 Tobacco Screening 10/11/2025 10/11/2024 Lipid Panel 01/20/2029 01/21/2024, 01/22/2022 DTaP/Tdap/Td Vaccines (2 - T d or Tdap) 06/26/2032 06/26/2022 HIB Vaccines Aged Out No longer eligi ble based on patient's age to complete this topic HPV Vaccines Aged Out No longer eligi ble based on patient's age to complete this topic Hepatitis A Vaccines Discontinued IPV Vaccines Aged Out No longer eligi ble based on patient's age to complete this topic Meningococcal Vaccine Aged Out No tori oduglas eligible based on patient's age to complete this topic RSV under 20 months Aged Out No longe r eligible based on patient's age to complete this topic Rotavirus Vaccines Aged Out No longer eligible based on patient's age to complete this topic Procedures Procedure Name Priority Date/Time Associated Diagnosis Comments BI US BREAST LIMITED BILATERAL Routine 10/23/2024 11:15 AM EST BI MAMMOGRAM DIAGNOSTIC TOMOSYNTHESIS BILATERAL Routine 10/23/2024 10:26 AM EST XR HIP 2 OR 3 VIEWS LEFT Routine 10/09/2024 Left hip pain BI MAMMOGRAM SCREENING TOMOSYNTHESIS BILATERAL Routine 09/13/2024 2:15 PM EST LIPID PANEL, STANDARD Routine 01/21/2024 12:11 PM EDT Heart failure, unspecified HF chronicity, unspecified heart failure type (CMS/HCC) from Last 3 Months or Most Recently Relevant to Health Maintenance Results * BI US Breast Limited Bilateral (10/23/2024 11:15 AM EST) Anatomical Region Laterality Modality Breast Bilateral Ultrasound 10/23/2024 11:1 5 AM EST Narrative 10/23/2024 12:39 PM EST ? [facility] ? [address] ?[place] [address] ? Ultrasound Report ? Signed ? Patient: Rowley,Erica ?MR#: [id number] ?? 961 ? : 1950 ?Acct:[id number] ? Age/Sex: 73 / F ?ADM Date: 10/23/24 ? Loc: HO.MAMMO ? Attending Dr: Imani Fu MD ? Ordering Physician: Imani Fu MD ?? Date of Service: 10/23/24 ?? Procedure(s): US breast BI limited mamm only ?? Accession Number(s): [id number] ? cc: Imani Fu MD ? EXAMINATION: ?? MM DIAGNOSTIC DIGITAL BREAST TOMOSYNTHESIS, BILATERAL ?? Bilateral Limited ultrasound. ? CLINICAL INFORMATION: ? Right breast focal asymmetry and left breast focal asymmetries. ? COMPARISON: ?? Mammography: Comparison is made with relevant prior exams. ? TECHNIQUE: ?? Digital breast mammography with tomosynthesis is performed in both the ?? craniocaudal and mediolateral oblique views along with computer-aided ?? detection (CAD). ?? bilateral Limited ultrasound. ? FINDINGS: ?? The breasts are heterogeneously dense, which may obscure small masses ?? (ACR BI-RADS breast composition Category c). ?? Right: ?? There is a developing focal asymmetry in the upper outer breast ?? posterior depth with associated architectural distortion. ?? No suspicious calcifications or other abnormal findings. ? Targeted color Doppler ultrasound scanning from 7-12 o'clock in the ?? lateral right breast demonstrates normal fibronodular breast tissue. ?? There is no sonographic correlate for the focal asymmetry with ?? distortion on mammography. ? Left: ?? Focal asymmetry upper outer breast posterior depth. ? Asymmetry superior breast anterior to middle depth on MLO view. ? Targeted color Doppler ultrasound scanning from 12-6 o'clock in the ?? lateral left breast demonstrates a hypoechoic oval circumscribed solid ?? mass versus complicated cyst at 2:00 12 cm from nipple measuring 12 x 6 ?? x 10 mm this is a questionable correlate for the focal asymmetry in the ?? upper outer breast on mammography. ?? Otherwise there is normal fibronodular breast tissue. ? Results are provided to the patient at time of visit by the ?? technologist. ? US/US breast BI limited mamm only ?? IMPRESSION: ?? Right: ?? Focal asymmetry with architectural distortion without sonographic ?? correlate in the upper outer quadrant. Recommend stereotactic core ?? needle biopsy at this time. The findings and recommendations were ?? discussed with the patient the procedure will be scheduled. ? Left: ?? 1. Focal asymmetry in the upper outer quadrant and asymmetry in the ?? superior breast anterior depth on MLO view, 6 month follow-up ?? mammography for further evaluation of stability. ? 2. Solid mass versus complicated cyst on ultrasound at 2:00 recommend 6 ?? month follow-up ultrasound for further evaluation of stability. ? ASSESSMENT: ? BI-RADS BI-RADS 4 - Suspicious finding ? RECOMMENDATION: ?? Biopsy recommended ? This patient's information was entered into a reminder system with a ?? target due date for their next mammogram. ? Electronically signed by: ??Jayda Munson DO ??10/23/2024 12:35 PM EST ? Dictated By: ?Jayda Munson DO ? Signed By: ?<Electronically signed by Jayda Munson, DO in OV> ? 10/23/24 1235 ? DD/ 1115 ? TD/TT: 10/23/24 1133 ? Merchandise Manager: ? Procedure Note [place], Image - 10/23/2024 [facility] [address] [place], [place] [address] Ultrasound Report Signed Patient: Raji Rowley#: [id number] 961 : 1950Acct:[id number] Age/Sex: 73 / FADM Date: 10/23/24 Loc: HO.MAMMO Attending Dr: Imani Fu MD Ordering Physician: Imani Fu MD Date of Service: 10/23/24 Procedure(s): breast BI limited mamm only Accession Number(s): [id number] cc: Imani Fu MD EXAMINATION: MM DIAGNOSTIC DIGITAL BREAST TOMOSYNTHESIS, BILATERAL Bilateral Limited ultrasound. CLINICAL INFORMATION: Right breast focal asymmetry and left breast focal asymmetries. COMPARISON: Mammography: Comparison is made with relevant prior exams. TECHNIQUE: Digital breast mammography with tomosynthesis is performed in both the craniocaudal and mediolateral oblique views along with computer-aided detection (CAD). bilateral Limited ultrasound. FINDINGS: The breasts are heterogeneously dense, which may obscure small masses (ACR BI-RADS breast composition Category c). Right: There is a developing focal asymmetry in the upper outer breast posterior depth with associated architectural distortion. No suspicious calcifications or other abnormal findings. Targeted color Doppler ultrasound scanning from 7-12 o'clock in the lateral right breast demonstrates normal fibronodular breast tissue. There is no sonographic correlate for the focal asymmetry with distortion on mammography. Left: Focal asymmetry upper outer breast posterior depth. Asymmetry superior breast anterior to middle depth on MLO view. Targeted color Doppler ultrasound scanning from 12-6 o'clock in the lateral left breast demonstrates a hypoechoic oval circumscribed solid mass versus complicated cyst at 2:00 12 cm from nipple measuring 12 x 6 x 10 mm this is a questionable correlate for the focal asymmetry in the upper outer breast on mammography. Otherwise there is normal fibronodular breast tissue. Results are provided to the patient at time of visit by the technologist. US/US breast BI limited mamm only IMPRESSION: Right: Focal asymmetry with architectural distortion without sonographic correlate in the upper outer quadrant. Recommend stereotactic core needle biopsy at this time. The findings and recommendations were discussed with the patient the procedure will be scheduled. Left: 1. Focal asymmetry in the upper outer quadrant and asymmetry in the superior breast anterior depth on MLO view, 6 month follow-up mammography for further evaluation of stability. 2. Solid mass versus complicated cyst on ultrasound at 2:00 recommend 6 month follow-up ultrasound for further evaluation of stability. ASSESSMENT: BI-RADS BI-RADS 4 - Suspicious finding RECOMMENDATION: Biopsy recommended This patient's information was entered into a reminder system with a target due date for their next mammogram. Electronically signed by: Jayda Munson DO 10/23/2024 12:35 PM [facility] Dictated By: Jayda Munson DO Signed By: <Electronically signed by Jayda Munson DO in OV> 10/23/24 1235 DD/ 1115 TD/TT: 10/23/24 1133 Merchandise Manager: us Imani Fu MD IMG US PROCEDURES Final Resul t * BI Mammogram Diagnostic Tomosynthesis Bilateral (10/23/2024 10:26 AM EST) Anatomical Region Laterality Modality Breast Bilateral Mammography 10/23/2024 10:2 6 AM EST Narrative 10/23/2024 12:39 PM EST ? [facility] ? [address] ?[place], [place] [address] ? Mammography Report ? Signed ? Patient: Rowley,Erica ?MR#: [id number] ?? 961 ? : 1950 ?Acct:[id number] ? Age/Sex: 73 / F ?ADM Date: 10/23/ ? Loc: HO.MAMMO ? Attending Dr: Imani Fu MD ? Ordering Physician: Imani Fu MD ?Results: 4Susp ?? icious Finding ? Date of Service: 10/23/ ?Follow Up: Biopsy Recommend ?? ed ? Procedure(s): MM tomosynthesis diagnostic BI ?? Accession Number(s): [id number] ? cc: Imani Fu MD ? EXAMINATION: ?? MM DIAGNOSTIC DIGITAL BREAST TOMOSYNTHESIS, BILATERAL ?? Bilateral Limited ultrasound. ? CLINICAL INFORMATION: ? Right breast focal asymmetry and left breast focal asymmetries. ? COMPARISON: ?? Mammography: Comparison is made with relevant prior exams. ? TECHNIQUE: ?? Digital breast mammography with tomosynthesis is performed in both the ?? craniocaudal and mediolateral oblique views along with computer-aided ?? detection (CAD). ?? bilateral Limited ultrasound. ? FINDINGS: ?? The breasts are heterogeneously dense, which may obscure small masses ?? (ACR BI-RADS breast composition Category c). ?? Right: ?? There is a developing focal asymmetry in the upper outer breast ?? posterior depth with associated architectural distortion. ?? No suspicious calcifications or other abnormal findings. ? Targeted color Doppler ultrasound scanning from 7-12 o'clock in the ?? lateral right breast demonstrates normal fibronodular breast tissue. ?? There is no sonographic correlate for the focal asymmetry with ?? distortion on mammography. ? Left: ?? Focal asymmetry upper outer breast posterior depth. ? Asymmetry superior breast anterior to middle depth on MLO view. ? Targeted color Doppler ultrasound scanning from 12-6 o'clock in the ?? lateral left breast demonstrates a hypoechoic oval circumscribed solid ?? mass versus complicated cyst at 2:00 12 cm from nipple measuring 12 x 6 ?? x 10 mm this is a questionable correlate for the focal asymmetry in the ?? upper outer breast on mammography. ?? Otherwise there is normal fibronodular breast tissue. ? Results are provided to the patient at time of visit by the ?? technologist. ? MM/MM tomosynthesis diagnostic BI ?? IMPRESSION: ?? Right: ?? Focal asymmetry with architectural distortion without sonographic ?? correlate in the upper outer quadrant. Recommend stereotactic core ?? needle biopsy at this time. The findings and recommendations were ?? discussed with the patient the procedure will be scheduled. ? Left: ?? 1. Focal asymmetry in the upper outer quadrant and asymmetry in the ?? superior breast anterior depth on MLO view, 6 month follow-up ?? mammography for further evaluation of stability. ? 2. Solid mass versus complicated cyst on ultrasound at 2:00 recommend 6 ?? month follow-up ultrasound for further evaluation of stability. ? ASSESSMENT: ? BI-RADS BI-RADS 4 - Suspicious finding ? RECOMMENDATION: ?? Biopsy recommended ? This patient's information was entered into a reminder system with a ?? target due date for their next mammogram. ? Electronically signed by: ??Jayda Munson DO ??10/23/2024 12:35 PM EST ?? RP ? Dictated By: ?Jayda Munson DO ? Signed By: ?<Electronically signed by Jayda Munson, DO in OV> ? 10/23/24 1235 ? DD/ 1026 ? TD/TT: 10/23/24 1050 ? Merchandise Manager: ? Procedure Note Donotuseinterpreter, Image - 10/23/2024 [facility] [address] [place] [address] Mammography Report Signed Patient: Raji Rowley#: [id number] 961 : 1950Acct:[id number] Age/Sex: 73 / FADM Date: 10/23/24 Loc: HO.MAMMO Attending Dr: Imani Fu MD Ordering Physician: Imani Fuults: 4Susp icious Finding Date of Service: 10/23/24Follow Up: Biopsy Recommend ed Procedure(s): MM tomosynthesis diagnostic BI Accession Number(s): [id number] cc: Imani Fu MD EXAMINATION: MM DIAGNOSTIC DIGITAL BREAST TOMOSYNTHESIS, BILATERAL Bilateral Limited ultrasound. CLINICAL INFORMATION: Right breast focal asymmetry and left breast focal asymmetries. COMPARISON: Mammography: Comparison is made with relevant prior exams. TECHNIQUE: Digital breast mammography with tomosynthesis is performed in both the craniocaudal and mediolateral oblique views along with computer-aided detection (CAD). bilateral Limited ultrasound. FINDINGS: The breasts are heterogeneously dense, which may obscure small masses (ACR BI-RADS breast composition Category c). Right: There is a developing focal asymmetry in the upper outer breast posterior depth with associated architectural distortion. No suspicious calcifications or other abnormal findings. Targeted color Doppler ultrasound scanning from 7-12 o'clock in the lateral right breast demonstrates normal fibronodular breast tissue. There is no sonographic correlate for the focal asymmetry with distortion on mammography. Left: Focal asymmetry upper outer breast posterior depth. Asymmetry superior breast anterior to middle depth on MLO view. Targeted color Doppler ultrasound scanning from 12-6 o'clock in the lateral left breast demonstrates a hypoechoic oval circumscribed solid mass versus complicated cyst at 2:00 12 cm from nipple measuring 12 x 6 x 10 mm this is a questionable correlate for the focal asymmetry in the upper outer breast on mammography. Otherwise there is normal fibronodular breast tissue. Results are provided to the patient at time of visit by the technologist. MM/MM tomosynthesis diagnostic BI IMPRESSION: Right: Focal asymmetry with architectural distortion without sonographic correlate in the upper outer quadrant. Recommend stereotactic core needle biopsy at this time. The findings and recommendations were discussed with the patient the procedure will be scheduled. Left: 1. Focal asymmetry in the upper outer quadrant and asymmetry in the superior breast anterior depth on MLO view, 6 month follow-up mammography for further evaluation of stability. 2. Solid mass versus complicated cyst on ultrasound at 2:00 recommend 6 month follow-up ultrasound for further evaluation of stability. ASSESSMENT: BI-RADS BI-RADS 4 - Suspicious finding RECOMMENDATION: Biopsy recommended This patient's information was entered into a reminder system with a target due date for their next mammogram. Electronically signed by: Jayda Munson DO 10/23/2024 12:35 PM EST Dictated By: Jayda Munson DO Signed By: <Electronically signed by Jayda Munson DO in OV> 10/23/24 1235 DD/ 1026 TD/TT: 10/23/24 1050 Merchandise Manager: Imani Fu MD [facility] BI PROCEDURES Final Resul t * XR Hip 2 or 3 Views Left (10/09/2024) Anatomical Region Laterality Modality Lower Extremities, Hip Left Radiograp hic Imaging Imani Fu MD [facility] XR PROCEDURES Final Resul t * BI Mammogram Screening Tomosynthesis Bilateral (09/13/2024 2:15 PM EST) Anatomical Region Laterality Modality Breast Bilateral Mammography 09/13/2024 2:15 PM EST Narrative 09/20/2024 10:30 AM EST ? [facility] ? [address] ?[place] [address] ? Mammography Report ? Signed ? Patient: Rowley,Erica ?MR#: [id number] ?? [id number] ? : 1950 ?Acct:[id number] ? Age/Sex: 73 / F ?ADM Date: 12/11/24 ? Loc: HO.MAMMO ? Attending Dr: Imani Fu MD ? Ordering Physician: Imani Fu MD ?Results: 0Inco ?? mplete: Needs Additional Imaging Evaluation ? Date of Service: 09/13/24 ?Follow Up: Additional Imagi ?? ng ? Procedure(s): MM tomosynthesis screening BI ?? Accession Number(s): [id number] ? cc: Imani Fu MD ? EXAMINATION: ?? MM SCREENING DIGITAL BREAST TOMOSYNTHESIS, BILATERAL ? CLINICAL INFORMATION: ? Screening. Asymptomatic. ? COMPARISON: ?? Mammography: Comparison is made with available priors ? TECHNIQUE: ?? Digital breast mammography with tomosynthesis is performed in both the ?? craniocaudal and mediolateral oblique views along with computer-aided ?? detection (CAD). ? FINDINGS: ?? There are scattered areas of fibroglandular density (ACR BI-RADS breast ?? composition Category b). ? Right: ?? Developing focal asymmetry superior breast on MLO view posterior depth ?? with associated architectural distortion. ?? No suspicious calcifications or other abnormal findings. ? Left: ?? Focal asymmetry upper outer breast posterior depth. ?? Asymmetry superior breast anterior depth on MLO view. ?? No suspicious other abnormal findings. Marker clip from previous biopsy. ? MM/MM tomosynthesis screening BI ?? IMPRESSION: ?? Bilateral focal asymmetries and left superior asymmetry. Additional ?? imaging and ultrasound recommended at this time. ? ASSESSMENT: ? BI-RADS BI-RADS 0 - Incomplete: Needs additional Imaging. ? RECOMMENDATION: ?? 1. Additional views of the bilateral breasts ?? 2. Targeted ultrasound if warranted after review of the additional ?? views. ?? 3. Radiology department staff will contact the patient for additional ?? imaging. ? Additional Imaging required ? This examination should not preclude the clinical evaluation of a ?? suspicious palpable abnormality. ? This patient's information was entered into a reminder system with a ?? target due date for their next mammogram. ? Electronically signed by: ??Jayda Munson DO ??09/20/2024 10:27 AM EST ?? RP ? Dictated By: ?Jayda Munson DO ? Signed By: ?<Electronically signed by Jayda Munson DO in OV> ? 09/20/24 1027 ? DD/ 1415 ? TD/TT: 09/13/24 1433 ? Merchandise Manager: ? Procedure Note [place], Image - 09/20/2024 [facility] [address] [place], [place] [address] Mammography Report Signed Patient: Raji Rowley#: [id number] : 1950Acct:[id number] Age/Sex: 73 / FADM Date: 09/13/24 Loc: HO.DENIS Attending Dr: Imani Fu MD Ordering Physician: Imani Fu MDResults: 0Inco mplete: Needs Additional Imaging Evaluation Date of Service: 09/13/24Follow Up: Additional Imagi ng Procedure(s): MM tomosynthesis screening BI Accession Number(s): [id number] cc: Imani Fu MD EXAMINATION: MM SCREENING DIGITAL BREAST TOMOSYNTHESIS, BILATERAL CLINICAL INFORMATION: Screening. Asymptomatic. COMPARISON: Mammography: Comparison is made with available priors TECHNIQUE: Digital breast mammography with tomosynthesis is performed in both the craniocaudal and mediolateral oblique views along with computer-aided detection (CAD). FINDINGS: There are scattered areas of fibroglandular density (ACR BI-RADS breast composition Category b). Right: Developing focal asymmetry superior breast on MLO view posterior depth with associated architectural distortion. No suspicious calcifications or other abnormal findings. Left: Focal asymmetry upper outer breast posterior depth. Asymmetry superior breast anterior depth on MLO view. No suspicious other abnormal findings. Marker clip from previous biopsy. MM/MM tomosynthesis screening BI IMPRESSION: Bilateral focal asymmetries and left superior asymmetry. Additional imaging and ultrasound recommended at this time. ASSESSMENT: BI-RADS BI-RADS 0 - Incomplete: Needs additional Imaging. RECOMMENDATION: 1. Additional views of the bilateral breasts 2. Targeted ultrasound if warranted after review of the additional views. 3. Radiology department staff will contact the patient for additional imaging. Additional Imaging required This examination should not preclude the clinical evaluation of a suspicious palpable abnormality. This patient's information was entered into a reminder system with a target due date for their next mammogram. Electronically signed by: Jayda Munson DO 09/20/2024 10:27 AM [facility] Dictated By: Jayda Munson DO Signed By: <Electronically signed by Jayda Munson DO in OV> 09/20/24 1027 DD/ 1415 TD/TT: 09/13/24 1433 Merchandise Manager: us Imani Fu MD IMG BI PROCEDURES Edited Resu lt - Final * (ABNORMAL) Lipid Panel, Standard (01/21/2024 12:11 PM EDT) Triglycerides 122 <150 mg/dL [facility] Comment:Desirable Triglyceri de: less than 150 mg/dLBorderline High Triglyceride 150-199 mg/dLHigh Triglyceride: 200-499 mg/dLVery High Triglyceride: greater than or equal to 5OO mg/dL Cholesterol 181 <200 mg/dL [facility] Comment:Desirable Cholestero l: less than 200 mg/dLBorderline High Cholesterol: 200-239 mg/dLHigh Cholesterol: greater than 239 mg/dL LDL Cholesterol Calculated 101(H) <100 mg/dL [facility] Comment:Desirable LDL: less than 100 mg/dLNear Optimal/Above Optimal LDL: 110- 129 mg/dLBorderline High LDL: 130-159 mg/dLHigh LDL: 160-189 mg/dLVery High LDL: greater than or equal to 190 mg/dL HDL Cholesterol 56 >40 mg/dL [facility] Comment:Desirable HDL: great er than 40 mg/dL Note: This HDL assay may give artificially low results in patients with liver disease. Blood Venous blood specimen / Unknown 01/21/2024 12:11 PM EDT 01/21/2024 2:38 PM EDT us Imani Fu MD LAB BLOOD ORDERABLES Final Re sult [facility] [address] [place] [address] [phone] from Last 3 Months or Most Recently Relevant to Health Maintenance Insurance [facility] Care Teams Soil Conservation Technician Relationship Specialty Start Date End Date Imani Fu MD [address] [place] [address] PCP - General Family Medicine 03/16/23
--- OUTSIDE RECORDS SUMMARY | 2024-12-05 14:22 | XMS_ITS | Clinical Summary ---
Author Organization [facility] Address [address] [place] [address] Care Team Providers Care Sole Inker Name Role Phone Unavailable Primary Care Provider Unavailabl e Source Comments PLEASE NOTE, if this patient is a minor, it may be UNLAWFUL to discuss sensitive information that is contained in these records (such as FAMILY PLANNING, MENTAL HEALTH or SUBSTANCE ABUSE) with the minor patient's parent or other person without the patient's specific authorization.[facility] Allergies No known active allergies Medications mineral oil-petrolatum (AQUAPHOR) ointmentIndicati ons:Onychomycosi s,Dry skin Apply topically 2 (two) times daily. 452 g 2 5 Active aspirin 81 mg EC tablet Take 1 Tab by mouth once daily. 90 Tab 2 5 Active ibuprofen (ADVIL,MOTRIN) 600 mg tabletIndication s:Bilateral low back pain without sciatica Take 1 Tab by mouth 4 (four) times daily as needed for pain. Take with food. 120 Tab 1 5 Active calcium carbonate-vitami n D3 600 mg(1,500mg) -400 unit tablet Take 1 Tab by mouth 2 (two) times daily. 60 Tab 5 6 Active omeprazole (PRILOSEC) 20 mg capsuleIam ns:Gastroesophag eal reflux disease, esophagitis presence not specified Take 1 Cap by mouth every morning before breakfast. Do not crush or chew. 30 Cap 3 6 Active acetaminophen (TYLENOL EX STR ARTHRITIS PAIN) 500 mg tabletIndication s:Arthralgia, unspecified joint Take 1 Tab by mouth every 6 (six) hours as needed for pain. 30 Tab 3 6 Active blood sugar diagnostic (FREESTYLE LITE STRIPS) strips once daily. 50 Each 5 6 Active lancets (FREESTYLE LANCETS) 28 gaugeIndications :Pre-diabetes 1 Each once daily. Dx: prediabetes 100 Each 3 6 Active alcohol swabs Use qd, dx prediabetes 100 Each 11 6 Active blood-glucose meter kit (FREESTYLE LITE METER) monitoring kit once daily. Dx pre diabetes 1 Each 0 6 Active Active Problems Problem Noted Date Diagnosed Date GERD (gastroesophageal reflux disease) 6 Bilateral low back pain without sciatica 015 Breast hypertrophy, surgery eval 02/2015 015 Overview (08/16/2015): * Final Report * Office Note (Verified) OFFICE NOTE DATE:02/04/2015 SUPERVISING PHYSICIAN: Kirby Barba M.D. Ms. Rowley is a 64-year-old female who comes in today. She was last seen in our office on 11/30/14 for breast reduction consultation. As far as the size of her breasts, we felt that she would be a good candidate. However, she had multiple medical comorbidities that we wanted to have her primary care physician see her first and give us a medical clearance. She returns today and states that she saw her primary care physician back in January. We do have some faxed notes from Aislinn Gaona PA-C, at [facility]. However, this is not a medical clearance and seems to be some old notes that do not specify her current treatment for hepatitis C, nor did they indicate what her HbA1c are. Physical exam was not performed today. Plan: I will try to call Ms. Gaona at the [facility] to discuss the patient's current medical status and whether or not it would be safe to bring her to the operating room for this surgery and then we will send for authorization once I speak with her. This is all explained to the patient via an hand thermal cutter. She stated she understood the plans and had no further questions. Dictated by: Janette DANIEL Signing Clinician: Kirby Babra MD Dictated: 02/04/2015 11:15:09 Transcribed: 02/04/2015 19:03:05 Transcribed by: AL DocID: [id number] Liver cirrhosis 02/201504/04/2015 Overview (04/04/2015): Result type: US Abdomen Ltd Result date: 21 Feb 2015 11:15 Result status: Auth (Verified) Result title: US Abdomen Ltd Performed by: Lew Mehta DO on 21 Feb 2015 13:46 Verified by: Ambrose Camarillo MD on 21 Feb 2015 13:49 Encounter info: [id number], [facility] [place]21[place] 02/21/2015 * Final Report * Reason For Exam hep c hepatoma RESULT: US Abdomen Ltd US Abdomen Ltd INDICATION: Hepatitis C. Hepatoma screening. COMPARISON: Abdominal ultrasound dated 04/03/2013. IMAGING TECHNIQUE: Grayscale and color ultrasound examination of the right upper quadrant was performed. FINDINGS: Liver: Coarse, heterogeneously mildly increased liver echotexture. No focal lesion is demonstrated. Biliary ducts: No intra or extrahepatic biliary ductal dilatation is identified. The common bile duct measures 0.4 cm. Gallbladder: There is a nonmobile, nonshadowing echogenic focus along the gallbladder wall that demonstrates twinkle artifact and measures up to 3 mm in greatest dimension. There is no gallbladder wall thickening or pericholecystic fluid. Negative sonographic Carlos's sign. Pancreas: The head, neck, body, and proximal tail are moderately well imaged and reveal no focal pathology. The distal tail is obscured by overlying bowel gas. Right kidney: No abnormalities. No hydronephrosis. Normal cortical thickness. The right kidney measures 10.3 cm in length. IMPRESSION: 1. Coarse, heterogeneously increased liver echotexture, with a nodular external contour, consistent with cirrhosis. 2. Nonmobile echogenic focus along the gallbladder wall that demonstrates twinkle artifact. This is felt to represent an adherent gallstone or polyp with calcification. There are no sonographic findings of acute cholecystitis. If a polyp, given the small size, no further follow-up is necessary. I have personally reviewed the images and I agree with this report. Signature Line Dictated By: Lew Mehta DO Dictated Date/Time: 02/21/15 1:46 pm Reviewed By: Ambrose Camarillo MD Signed By: Ambrose Camarillo MD Signed Date/Time: 02/21/15 1:49 pm Transcribed By: NUNO Transcribed Date/Time: 02/21/15 1:46 pm US Abdomen Ltd This document has an image Glaucoma 04/04/2015 H/O pelvic ultrasound 09/201201/09/2015 Overview (01/09/2015): Result type: US Pelvic Non-Ob Comp Result date: 14 September 2014 10:18 Result status: Auth (Verified) Result title: US Pelvic Non-Ob Comp Performed by: Demetri Evans MD on 14 September 2014 10:25 Verified by: Demetri Evans MD on 14 September 2014 10:25 Encounter info: [id number], [facility] [place]/14/2014 - 09/14/2014 * Final Report * Reason For Exam pelvic pain RESULT: US Pelvic Non-Ob Comp HISTORY pelvic pain, reportedly on the right US Pelvic Non-Ob Comp, US Transvaginal Non-ob Uterus measures 9.2 x 1.6 x 4.5 cm. Endometrium is thin and echogenic, measuring 0.1 cm in thickness. No focal myometrial mass seen. Please note that most of the uterus is only seen on the transabdominal study as only the cervix could be seen on the endovaginal exam. No significant pelvic free fluid identified. Neither ovary was visualized. Impression: Slender and normal-appearing uterus. Nonvisualized ovaries. No explanation for patient's pain. Signature Line Dictated By: Demetri Evans MD Dictated Date/Time: 09/14/14 10:25 a Reviewed By: Demetri Evans MD Signed By: Demetri Evans MD Signed Date/Time: 09/14/14 10:25 am Transcribed By: NUNO Transcribed Date/Time: 09/14/14 10:25 am US Pelvic No This document has an image H/O colonoscopy with polypectomy 03/201308/10/20 14 Functional constipation 08/10/2014 Hepatitis C antibody test po sitive, genotype 1a, failed treatment in 201005/19/2014 Overview (04/04/2015): FIBROSURE RESULTS . 01/09/2015 1:51 PM [facility] Comment: Fibrosis Score 0.57 H 0.00-0.21 Fibrosis Stage F2-BRIDGING FIBROSIS WITH FEW SEPTA Necroinflammat Activity Score 0.43 H 0.00-0.17 Necroinflammat Activity Grade A1-A2 Analysis: Alpha 2-Macroglobulins 354 H mg/dL 110-276 Haptoglobin 112 mg/dL 34-200 Apolipoprotein A-1 183 mg/dL 110-180 Bilirubin, Total 0.7 mg/dL 0.0-1.2 GGT 77 H IU/L 0-65 ALT (SGPT) P5P 56 H IU/L 0-55 FIBROSURE INTERPRETATION . 01/09/2015 1:51 PM [facility] Comment: Interpretations: Quantitative results of 6 biochemical tests are analyzed using a computational algorithm to provide a quantitative surrogate marker (0.0-1.0) for liver fibrosis (METAVIR F0-F4) and for necroinflammatory activity (METAVIR A0-A3). Fibrosis Scoring: <0.21 = Stage F0 - No fibrosis 0.21 - 0.27 = Stage F0 - F1 0.27 - 0.31 = Stage F1 - Portal fibrosis 0.31 - 0.48 = Stage F1 - F2 0.48 - 0.58 = Stage F2 - Bridging fibrosis with few septa 0.58 - 0.72 = Stage F3 - Bridging fibrosis with many septa 0.72 - 0.74 = Stage F3 - F4 >0.74 = Stage F4 - Cirrhosis Necroinflamm Activity Scoring: <0.17 = Grade A0 - No Activity 0.17 - 0.29 = Grade A0 - A1 0.29 - 0.36 = Grade A1 - Minimal activity 0.36 - 0.52 = Grade A1 - A2 0.52 - 0.60 = Grade A2 - Moderate activity 0.60 - 0.62 = Grade A2 - A3 >0.62 = Grade A3 - Severe activity Limitations: The negative predictive value of a Fibrotest score <0.31 (absence of clinically significant fibrosis) was 85% when compared to liver biopsy in 1,270 HCV infected patients with a 38% prevalence of significant liver fibrosis (F2, 3 or 4). The positive predictive value of a Fibrotest score >0.48 (F2, 3, 4) was 61% in that same patient cohort. HCV FibroSURE is not recommended in patients with Gilbert Disease, acute hemolysis (e.g. HCV ribavirin therapy mediated hemolysis) acute hepatitis of the liver, extra-hepatic cholestasis, transplant patients, and/or renal insufficiency patients. Any of these clinical situations may lead to inaccurate quantitative predictions of fibrosis and necroinflammatory activity in the liver. Comment: This test was developed and its performance characteristics determined by [facility]. It has not been cleared or approved by the Food and Drug Administration. The FDA has determined that such clearance or approval is not necessary. For questions regarding this report please contact [facility] Customer Service Department at . TEST PERFORMED AT: [facility] [address] [place] [address] Overweight 05/19/2014 Pre-diabetes 05/18/2014 Overview (05/19/2014): Carries a diagnosis of type 2 DM For months on no treatment Lab Results Component Value Date HGBA1C 5.4 05/18/2014 DJD (degenerative joint disease) 05/18/2014 Osteopenia 04/03/2013 Overview (01/01/2016): DEXA 04/03/13 at [facility]= osteopenia femoral neck Immunizations Name Administration Dates Next Due Hep B, Adult/Adol (ENERGIX/RECOMBIVAX) 4,08/10/2014 Family History Medical History Relation Name Comments Diabetes Mother Relation Name Status Comments Father Mother (Age 92) Social History Tobacco Use Types Packs/Day Years Used Date Smoking Tobacco: Former Smokeless Tobacco: Former Alcohol Use Standard Drinks/Week Comments No 0 (1 standard drink = 0.6 oz pur e alcohol) Social Connections Answer Date Recorded Social Connections and Isolation 0 05/27/2019 Financial Resource Strain Answer Date R ecorded Financial Resource Strain 0 2018 Stress Answer Date Recorded Stress 0 05/27/2019 Physical Activity Answer Date Recorded Physical Activity 0 05/27/2019 Food Insecurity Answer Date Recorded Food 0 05/27/2019 Transportation Needs Answer Date Record ed Transportation 0 05/27/2019 Housing Stability Answer Date Recorded Housing 0 05/27/2019 Safety and Environment Answer Date Best rded Safety 0 05/27/2019 Utilities Answer Date Recorded Utilities 0 05/27/2019 Employment Answer Date Recorded Employment 0 05/27/2019 Comments No Sex and Gender Information Value Date Recorded Sex Assigned at Not on file Legal Sex Female 7:28 AM PST Gender Identity Not on file Sexual Orientation Not on file Last Filed Vital Signs Vital Sign Reading Time Taken Comments Blood Pressure 141/58 02/27/2016 9:56 AM EDT Pulse 63 02/27/2016 9:56 AM EDT Temperature 36.6 ??C (97.9 ??F) 02/27/2016 9:56 AM ED T Respiratory Rate 16 02/27/2016 9:56 AM EDT Oxygen Saturation 95% 04/04/2015 2:08 PM EDT Inhaled Oxygen Concentration - - Weight 68 kg (150 lb) 01/01/2016 1:54 PM EDT Height 154.9 cm (5' 1 ) 01/01/2016 1:54 PM EDT Body Mass Index 28.34 01/01/2016 1:54 PM EDT Plan of Treatment Not on file Insurance [facility] Member Subscriber Plan / Payer (Ef fective 2015-Present) Name:Erica Springer Relation to Subscriber:Self Name:Erica Springer Payer ID:[id number] Group ID:Not on file Type:Indemnity Address: [facility] [address] [place] [id number]
== END 2024-12-05 11:48 | disposition home or self-care (01) ==
PROVIDERS: PCP Family Medicine; Visit Provider Surgery
DX: R92.8 Other abnormal and inconclusive findings on diagnostic imaging of breast (principal)
CPT/HCPCS: 99204

== ENCOUNTER → 2024-12-05 11:23 | Outpatient (BNVA) | payer OTHER, SELFPAY | PROVIDERS: PCP Family Medicine; Visit Provider Surgery | DX: R92.8 Other abnormal and inconclusive findings on diagnostic imaging of breast (principal) | CPT/HCPCS: 99202 ==

== ENCOUNTER 2025-07-16 11:46 | Outpatient (REF) | payer OTHER, SELFPAY ==
--- OUTSIDE RECORDS SUMMARY | 2025-07-16 11:15 | XMS_ITS | Encounter Summary ---
Author Organization [employer] Address [address] [place] [address] [address] [place] [address] Care Team Providers Care Food Photographer Name Role Phone Imani Fu MD Primary Care Provider [phone] Reason for Referral * Imaging (Urgent) - Pending Review Specialty Diagnoses / Procedures Referred By Sun fam Referred To Contact Radiology Diagnoses Right costovertebral angle tenderness Procedures US RENAL BI Antonietta Li FNP [address] [place] [address] Phone: tel: fax: Referral ID Status Reason Start Date Expiration Date V isits Requested Visits Authorized [id number] Pending Review 07/16/2025 07/16/2026 1 1 Encounter Details Date Type Department Care Team (Latest Contact Info) Description 07/16/2025 11:15 AM EDT Office Visit [facility] CH[facility] MED & PEDS [address] [place], [place] [phone] Antonietta Li FNP [address] [place] [address] Dysuria (Primary Dx); Right costovertebral angle tenderness [...] documented in this encounter Progress Notes * [facility] - 07/16/2025 11:15 AM EDT SUBJECTIVE: Erica Rowley is a 74 y.o. year old female with breast cancer currently undergoing chemotherapy, prediabetes, hypertension, osteoporosis who presents for evaluation of dysuria. Accompanied by MATERIALS RESEARCH ENGINEER HPI Pt reports intermittent right lower abdominal/pelvic [...] Follow Up: Medications Ordered Prior to Encounter[2] Portuguese Translation: Provided by [facility] staff member [1] Patient Active Problem List [...] Description 07/30/2025 11:15 AM EDT Office Visit [facility] MED & PEDS [address] [place] [address] Imani Fu MD [address] [place] [address] Scheduled Orders Name Type Priority Associated Diagnoses Orde r Schedule CBC auto differential Lab Routine Dysuria Expected: 07/16/2025 (Approximate), Expires: 07/16/2026 Comprehensive Metabolic Panel Lab Routine Dysuria Expected: 07/16/2025 (Approximate), Expires: 07/16/2026 Culture, Urine, Routine Microbiology Routine Dysuria Expected: 07/16/2025 (Approximate), Expires: 07/16/2026 US RENAL BI Imaging Urgent Right costovertebral angle tenderness Expected: 07/16/2025, Expires: 07/16/2026 documented as of this encounter Procedures Procedure Name Priority Date/Time Associated Diagnosis Comments POCT URINALYSIS DIPSTICK Routine 07/16/2025 11:36 AM EDT Dysuria documented in this encounter Results * POCT Urinalysis (07/16/2025 11:36 AM EDT) [...] Media Lot # [id number] Lot# Expiration Date 63 Urine (Urine, Random) 07/16/2025 11:36 AM EDT [facility] POINT OF CARE TEST ENTER/EDIT ORDERABLES Final Result documented in this encounter Visit Diagnoses Diagnosis Dysuria- Primary Right costovertebral angle tenderness documented in this encounter Additional Health Concerns Assessment Noted Time PHQ-9 Depression Total Score: 3 04/11/20 25 12:15 PM EDT documented as of this encounter Care Teams Food Photographer Relationship Specialty Start Date End Date Imani Fu MD [address] [place] [address] PCP - General Family Medicine 03/16/23 documented as of this encounter
--- OUTSIDE RECORDS SUMMARY | 2025-07-16 11:49 | XMS_ITS | Encounter Summary ---
Author Organization [employer] Address [address] [facility] [address] [place] [address] Care Team Providers Care Senior Investment Analyst Name Role Phone Imani Fu MD Primary Care Provider [phone] Encounter Details Date Type Department Care Team (Latest Contact Info) Description 07/16/2025 Travel Social History Tobacco Use Types Packs/Day Years [...] as of this encounter Plan of Treatment Upcoming Encounters Date Type Department Care Team (Late st Contact Info) Description 07/30/2025 11:15 AM EDT Office Visit [facility] MED & PEDS [address] [place] [address] Imani Fu MD [address] [place] [address] documented as of this encounter Visit Diagnoses Not on filedocumented in this encounter Additional Health Concerns Assessment Noted Time PHQ-9 Depression Total Score: 3 04/11/20 25 12:15 PM EDT documented as of this encounter Care Teams Senior Investment Analyst Relationship Specialty Start Date End Date Imani Fu MD [address] [place] [address] PCP - General Family Medicine 03/16/23 documented as of this encounter
--- OUTSIDE RECORDS SUMMARY | 2025-07-16 11:49 | XMS_ITS | Encounter Summary ---
Author Organization [employer] Address [address] [place] [address] [address] [place] [address] Care Team Providers Care Recreational Assistant Name Role Phone Imani Fu MD Primary Care Provider [phone] Encounter Details Date Type Department Care Team (Late st Contact Info) Description 03/02/2023 [facility] [employer] [facility] [address] [place] [address] Toan Hogue AGNP Social History Tobacco Use [...] Description 07/30/2025 11:15 AM EDT Office Visit [facility] MED & PEDS [address] [place] [address] Imani Fu MD [address] [place] [address] documented as of this encounter Visit Diagnoses Not on filedocumented in this encounter Care Teams Recreational Assistant Relationship Specialty Start Date End Date Imani Fu MD [address] [place] [address] PCP - General Family Medicine 03/16/23 documented as of this encounter
--- OUTSIDE RECORDS SUMMARY | 2025-07-16 11:49 | XMS_ITS | Encounter Summary ---
Author Organization [employer] Address [address] [place] [address] [address] [place] [address] Care Team Providers Care Instrumentation Specialist Name Role Phone Imani Fu MD Primary Care Provider Reason for Visit * Reason Onset Date Comments Chart Prep 07/13/2025 Encounter Details Date Type Department Care Team ([facility] Contact Info) Description 07/13/2025 Telephone C [facility] MED [facility]S [address] [place], [place] [phone] Imani Fu MD [address] [place], [place] [phone] Chart Prep Social History Tobacco Use Types Packs/Day Years [...] AM EDT documented as of this encounter Miscellaneous Notes * Telephone Encounter - Kacey Beltran [place] - 07/13/2025 2:48 PM EDT Chart Prep Labs: not applicable Images: not applicable Referrals: complete Vaccines due: Covid, Flu, PCV20, RSV, and Zoster Screenings: colonoscopy and mammogram Overdue care gaps: Not applicable documented in this encounter Plan of Treatment Upcoming Encounters Date Type Department Care Team ([facility] st Contact Info) Description 07/30/2025 11:15 AM EDT Office Visit [facility] MED & PEDS [address] [place] [address] Imani Fu MD [address] [place] [address] documented as of this encounter Visit Diagnoses Not on filedocumented in this encounter Additional Health Concerns Assessment Noted Time PHQ-9 Depression Total Score: 3 04/11/20 25 12:15 PM EDT documented as of this encounter Care Teams Instrumentation Specialist Relationship Specialty Start Date End Date Imani Fu MD [address] [place] [address] PCP - General Family Medicine 03/16/23 documented as of this encounter
--- OUTSIDE RECORDS SUMMARY | 2025-07-16 11:49 | XMS_ITS | Encounter Summary ---
Author Organization [facility] Address [address] [place] [address] Encounters * CPT with Medical [facility] at [place] on 2025-05-28 { reasonForRequest : Headache fever, sore throat, and dizzy , patientReport s : , denies :[ Sudden onset of dental pain, unable to manage own sec retions , Nosebleed lasting longer than one hour; unable to stop bleeding , Thro at swelling/difficult swallowing , Dental pain and fever, able to maintain secretions", Sinus infection , Conjunctivitis , External Ear concerns ], chiefComplaints : Fever, Headache, Sore Throat , pmh : Hypertension, C ancer , allergies : No Known Drug Allergies , otherAllergies :&qu ot; , painAssessment : , visitOutcome : , additionalComments : 74 y.o female complains of Fever, Headache, Sore Throat\nPatients BLUEPRINT REPRODUCER making referral with operations examiner\nsymptoms started 5 days ago\ncomplains of fever being warm does not have thermometer\ndenies any body aches or chills\nendorses nasal congestion and sore throat\ntook twotylenol about an hour and half ago- very little relief. \ndenies any nausea, vomiting or stomach pain.\nis having diarrhea today x 2 has seen small amount of visual blood but does have hx of hemorrhoids\nno known sick contacts. \nhx of breast cancer- chemo every Wednesday.\nrequesting to be assessed by Insted\n\n\nI provided information on the mobile health provider response time and advised the patient and/or caregiver to monitor reported signs and symptoms. I discussed the warning signs of when to seek emergency care. } Dispatched to the call address for the female that doesn't feel well. Pt states for two days now she has felt run down and experiencing headaches. She also states she felt like she had a fever yesterday. She has taken Tylenol with good effect. She denies chest pain, abd pain, n/v/d, difficulty breathing/sob, urinary symptoms or other complaints at this time. She states she wanted to make sure shedidn't have Covid or the Flu. Pt was found opening door, CAOx4, airway open and patent, breathing non labored, able to speak in full sentences, -JVD, -HEENT, skin PWD with good turgor, mucous membranes pink and moist, lungs CTA, abd soft non tender/distended, pupils PERRL, +CMSx4, -edema/swelling, afebrile. Pt was assessed. Rapid tests conducted- results uploaded to Pts portal. C consulted. Red flags discussed. ALL times are approx. IV_(FLUIDS_AND/OR_MEDICATION), MEDICATION_IM, ORAL_MEDICATION, EKG, POC_FLU_STREP, COVID_TEST Written by Medical instED on 2025-05-28
--- OUTSIDE RECORDS SUMMARY | 2025-07-16 11:49 | XMS_ITS | Clinical Summary ---
Author Organization [facility] Address [address] [place] [address] Phone Care Team Providers Care Ornamental Rail Installer Name Role Phone Chan Davies MD Primary Care Provider [phone] Allergies No known active allergies Medications diclofenac [...] lower extremities 019 Chronic hepatitis C virus in fection ([facility]/HCC V24, CMS/HCC V28) 06/01/2018 Esophageal reflux 06/01/2018 Depression with anxiety 05/24/2018 Intertrigo 11/19/2017 Macromastia 11/19/2017 Osteoporosis 08/25/2017 Medical History Medical History Date Comments Arthritis [...] Health Maintenance Due Date Last Done Comments Colorectal Cancer Screening: Colonoscopy 1950 Hepatitis A Vaccines (1 of 2 - Risk 2-dose series) 1968 Pneumococcal Vaccine: 50+ Years (1 of 2 - PCV) 1968 Zoster Vaccines (1 of 2) 12/25/1999 Hepatitis B Vaccines (3 of 3 - Risk 3-dose series) 02/07/2015 09/14/2014, 08/10/2014 Falls Risk Assessment 09/06/2022 Medicare Annual Wellness Visit 09/06/2022 Osteoporosis Screening (Bone Density Screening) 09/06/2022 Social Influencers of Health Screening 09/06/2022 Depression Screening 10/04/2024 Hypertension/CHF/CAD Annual BMP Blood Test 10/09/2024 09/18/2021 RSV Immunization Adult Patients (1 - 1-dose 75+ series) 2024 COVID-19 Vaccine (2 - 2024-2 6 season) 2025 10/15/2022 Influenza Vaccine (#1) 2025 Cholesterol Screening (Lipid Panel) 01/20/2029 01/21/2024, 11/28/2020 DTaP,Tdap,and Td Vaccines (2 - Td or Tdap) 06/26/2032 06/26/2022 Hepatitis C Screening Completed 09/18/2021 Breast Cancer Screening Discontinued 11/13/19, 01/23/2019 HIB Vaccines Aged Out No longer eligi [...] age to complete this topic Meningococcal B Vaccine Aged Out No l onger eligible based on patient's age to complete this topic RSV Immunization Patients Under 20 months Aged Out No longer eligible based on patient's age to complete this topic Varicella Vaccines Aged Out No longer eligible based on patient's age to complete this topic Procedures Procedure Name Priority Date/Time Associated Diagnosis Comments HEPATITIS C SCREENING Routine 09/18/2021 ANNUAL BMP BLOOD TEST Routine 09/18/2021 LIPID PANEL Routine 11/28/2020 [facility] SCREENING DIGITAL Routine 01/23/2019 1:47 PM EDT Encounter for screening mammogram for malignant neoplasm of breast from Last 3 Months or Most Recently Relevant to Health Maintenance Results * Annual BMP Blood Test (09/18/2021) [facility] Annual BMP Blood Test abstracted [facility] Provider HEALTH MAINTENANCE Final Result * Hepatitis C Screening (09/18/2021) [facility] Hepatitis C Screening abstracted [facility] Provider HEALTH MAINTENANCE Final Result * Lipid panel (11/28/2020) [facility] LDL/HDL Ratio 2 0 - 4 Triglycerides 135 0 - 150 mg/dL Cholesterol 174 0 - 200 mg/dL HDL 82 >=40 mg/dL LDL Cholesterol 65 0 - 100 mg/dL Blood Venous blood specimen / Unknown [facility] Provider LAB BLOOD ORDERABLES Charlotte l Result * [facility] SCREENING DIGITAL (01/23/2019 1:47 PM EDT) Anatomical Region Laterality Modality Mammography 01/23/2019 10:5 5 AM EDT Narrative 01/23/2019 1:47 PM EDT [facility] Diagnostic Imaging Department [address] [place] [address] Patient: ERICA ABREU./Age/Sex: 1950 - 68 - F Unit#: [id number] [facility] CLI Mnemonic/Ordering Site: [facility] Ordering Physician: ALBARO FRYE MD [facility] Screening Digital - 01/23/19 - 1124 INDICATION: SCREENING COMPARISON: 09/22/2017 and additional outside mammograms obtained annually dating back to 01/08/2014 TECHNIQUE: CC and MLO views of the breasts were obtained, using full field digital mammography with 3D tomosynthesis views in the MLO projection. Computer aided detection with the Javelin 7.2-H was employed. Benign left breast biopsy in 2013 reported. FINDINGS: The breasts are almost entirely composed of fat. Metallic biopsy marker is seen within the central left breast lateral to the nipple line. No suspicious masses, suspicious microcalcifications, or areas of architectural distortion are identified. Benign-appearing breast calcifications are present bilaterally. There are no secondary signs of breast malignancy. Compared to the prior exam, no adverse interval change. IMPRESSION: No specific mammographic evidence of breast malignancy. Lack of an imaging correlate should not deter or delay biopsy of a clinically significant palpable finding. BI-RADS - Category 2 - Benign finding 3342F, 7025F Annual screening mammography is recommended. Patient entered into a reminder system with a target date for the next mammogram. [id number] / [id number]) , [id number] Dictating Physician: SOURAV CASEY MD Electronically Signed by: SOURAV CASEY MD Dic Date/Time: 01/23/19 1343 Sign date/Time: 01/23/19 1347 Procedure Note Sourav Casey MD - 09/22/2022 [facility] Diagnostic Imaging Department [address] [place] [address] Patient: ERICA ABREU./Age/Sex: 1950 - 68 -F Unit#: [id number] [facility] CLI Mnemonic/Ordering Site: [facility] Ordering Physician: ALBARO FRYE MD [facility] Screening Digital - 01/23/19 - 1124 INDICATION: SCREENING COMPARISON: 09/22/2017 and additional outside mammograms obtainedannually dating back to 01/08/2014 TECHNIQUE: CC and MLO views of the breasts were obtained, using full field digital mammography with 3D tomosynthesis views in the MLO projection. Computer aided detection with the Javelin 7.2-H was employed. Benign left breast biopsy [...] target date for the next mammogram. ([id number]) , [id number] Dictating Physician: SOURAV CASEY MD Electronically Signed by: SOURAV CASEY MD Dic Date/Time: 01/23/19 1343 Sign date/Time: 01/23/19 1344 Albaro Frye MD IMG BI PROCEDURES Final Result from Last 3 Months or Most Recently Relevant to Health Maintenance Insurance [facility] MEDIC[facility] Member Subscriber Plan / Payer (Ef fective 2024-Present) Name:Erica Rowley Relation to Subscriber:Self Name:Erica Rowley Payer ID:[id number] Group ID:[id number] Type:Not on file Address: [address] [id number] Care Teams Ornamental Rail Installer Relationship Specialty Start Date End Date Chan Davies MD [address] [place] [phone] PCP - General Internal Medicine 08/21/21
--- OUTSIDE RECORDS SUMMARY | 2025-07-16 11:49 | XMS_ITS | Clinical Summary ---
Author Organization [employer] Address [address] [place] [address] [address] [place] [address] Care Team Providers Care Leaf Tier Name Role Phone Imani Fu MD Primary Care Provider [phone] Allergies No known active allergies Medications * This document contains information received from the source organization and may not represent a complete record from that organization. Artificial Tears 0.2-0.2-1 % solution Use as directed 11/09/19 23 Active senna (Senokot) 8.6 MG tablet Take 1 tablet by mouth at bedtime 11/09/19 23 Active Multiple Vitamins-[place] als (PreserVision AREDS 2) capsule 05/13/20 23 Active RA Lubricant Eye Drops 0.5 % ophthalmic solution 05/11/20 23 Active docusate sodium (Colace) 100 MG capsule TAKE 1 CAPSULE BY MOUTH TWICE DAILY NEEDED 180 capsule 06/29/20 23 Active Diclofenac Sodium (Voltaren Arthritis Pain) 1 % gel Apply 2 g topically if needed in the morning, at noon, in the evening, and at bedtime (pain). Apply to tender areas of feet 50 g 1 11/12/19 24 Active polyethylene glycol, PEG, 3350 (Glycolax) 17 GM/SCOOP powder 09/07/20 23 Active Bisacodyl EC 5 MG EC tablet 09/07/20 23 Active lidocaine-pril ocaine (Emla) 2.5-2.5 % cream 10/02/20 24 Active diclofenac (Voltaren) 50 MG EC tablet Take 1 tablet (50 mg) by mouth 3 times daily. Do not crush, chew, or split. 90 tablet 1 04/11/20 25 Active miconazole (Micatin) 2 % cream Apply topically 2 times daily. 30 g 2 04/11/20 25 Active albuterol 108 (90 Base) MCG/ACT inhaler Inhale 2 puffs every 4 (four) hours if needed for wheezing. 18 g 04/11/20 25 026 Active calcium carbonate 1500 (600 Ca) MG tablet Take 1 tablet (1,500 mg) by mouth with breakfast and with evening meal. 60 tablet 11 04/11/20 25 Active cholecalcifero l (Vitamin D3) 25 MCG (1000 UT) tablet TAKE 1 TABLET BY MOUTH IN THE MORNING. 120 tablet 3 04/11/20 25 Active melatonin 5 MG tablet Take 1 tablet (5 mg) by mouth at bedtime. 90 tablet 1 04/11/20 25 Active metoprolol succinate XL (Toprol-XL) 25 MG 24 hr tablet Take 1 tablet (25 mg) by mouth in the morning. 30 tablet 4 04/11/20 25 Active omeprazole (PriLOSEC) [address] capsule Take 1 capsule (20 mg) by mouth before breakfast. Take 1 capsule daily before a meal 90 capsule 1 04/11/20 25 Active alendronate (Fosamax) 70 MG tablet TAKE 1 TABLET (70 MG) BY MOUTH EVERY 7 (SEVEN) DAYS. TAKE IN THE MORNING WITH A FULL GLASS OF WATER, ON AN EMPTY STOMACH, DO NOT TAKE ANYTHING ELSE OR LIE DOWN FOR THE NEXT 30 MIN. 4 tablet 5 05/09/20 25 Active amLODIPine (Norvasc) 5 MG tablet TAKE 1 TABLET (5 MG) BY MOUTH ONCE PER DAY. 30 tablet 3 07/13/20 25 Active amLODIPine (Norvasc) 5 MG tablet Take 1 tablet (5 mg) by mouth Once per day. 30 tablet 1 04/11/20 25 025 Discontinued Active Problems Problem Noted Date Diagnosed Date Adjustment disorder, unspecified 04/16/2025 Malignant neoplasm of both b reasts in female, estrogen receptor negative (CMS/HCC) 04/11/2025 Assessment & Plan (04/12/2025 10:28 AM EDT): Patient recently diagnosed with bilateral breast cancer, grade 2 in the left breast. Plan: - Follow up with [facility] for ongoing cancer treatment - - Attempt to obtain insurance approval for Nutritional supplementation - Schedule follow-up appointment in 1 month to assess treatment progress and side effects Left hip pain 10/06/2024 Assessment & Plan (10/06/2024 12:51 PM EST): Pt complaining now of L hip pain, denies trauma, worse with movement. She has hx of R hip severe OA, will send to PT and Xray. Schedule inperson evaluation to help elucidate diagnosis. Future Appointments Date Time Provider Department Center 10/06/2024 1:00 PM Imani Fu MD [facility] 10/11/2024 11:00 AM [facility] SAME DAY CARE [facility] Dilated pore of [place] 02/15/2024 Assessment & [...] Lumbar Spine. Osteoporosis 05/14/2023 Assessment & Plan (04/12/2025 10:27 AM EDT): Patient has a history of osteoporosis and is currently on treatment. Last bone density scan was approximately 2 years ago. Due for follow-up to assess treatment efficacy. Plan: - Order DEXA scan to reassess bone density and treatment efficacy - Continue current osteoporosis medication (unspecified) once weekly - Continue calcium and vitamin D supplementation Assessment & Plan (10/11/2023 4:34 PM EST): [...] Benign essential hypertension 06/26/2022 Assessment & Plan (04/12/2025 10:27 AM EDT): Patient presents with elevated blood pressure (148/62 mmHg), which is improved but still above normal range. Patient reports having a home blood pressure monitor. Currently not on antihypertensive medication. Plan: - Initiate amlodipine 5 mg PO daily for blood pressure control - Patient educated on potential side effects, including pedal edema - Schedule follow-up with nurse in 1 week to assess medication efficacy and side effects - If blood pressure well-controlled and no side effects, plan to reassess in 1 month - Advise patient to monitor blood pressure at home and report any concerns Assessment & Plan (10/11/2023 4:34 PM EST): [...] are elevated, will be treating with medications. Atrophic vaginitis 12/12/2020 Varicose veins of both lower extremities 019 Chronic hepatitis C virus infection (CMS/HCC) Depression with anxiety 05/24/2018 GERD (gastroesophageal reflux disease) 6 Pre-diabetes 05/18/2014 Overview (04/11/2025): Carries a diagnosis of type 2 DM For months on no treatment Lab Results Component Value Date HGBA1C 5.4 05/18/2014 Resolved Problems Problem Noted Date Diagnosed Date Resolved Date Cervical cancer screening 02/15/2024 Assessment & Plan (02/15/2024 11:50 AM EDT): Difficult to get to cervix, very atrophic vaginal canal. Will discontinue. Denies prior abnormals. Dysuria 12/12/2020 04/11/2025 Osteopenia 04/03/2013 05/14/2023 Overview (11/06/2022): DEXA 04/03/13 at [facility]= osteopenia femoral neck Encounters * This document contains information received from the source organization and may not represent a complete record from that organization. Date Type Department Care Team Description 07/16/2025 11:15 AM EDT Office Visit [facility] [address] [place] [address] [facility] Dysuria (Primary Dx); Right costovertebral angle tenderness 07/16/2025 Travel 07/13/2025 Telephone [facility] [address] [place] [address] Imani Fu MD Chart Prep 07/13/2025 Refill [facility] [address] [place] [address] Imani Fu MD 06/07/2025 Patient Outreach [facility] [address] [place] [phone] Imani Fu MD Pre-visit Planning (SDOH screening completed on 04/03/25) 05/08/2025 Refill [facility] [address] [place] [address] Imani Fu MD 05/04/2025 Patient Outreach [facility] [address] [place] [address] Imani Fu MD Pre-visit Planning (SDOH screening completed on 04/03/25 ) 05/01/2025 2:30 PM EDT Clinical Support [facility] [address] [place] [address] Galilea Rodriguez RN Benign essential hypertension [I10] 05/01/2025 Travel 04/20/2025 Telephone [facility] [address] [place] [address] Imani Fu MD No Show from Last 3 Months Immunizations Immunization Administration Dates Next Due Hep B, adult [...] is your housing situation today? I have gillesnancy harrison 04/03/[address] you [...] 20 07/16/2025 10:59 AM EDT Oxygen Saturation 99% 05/01/2025 2:01 PM EDT Inhaled Oxygen Concentration - - Weight 61.7 kg (136 lb) 07/16/2025 10:59 AM EDT Height 149 cm (4' 10.66 ) 04/11/2025 10:48 AM ED T Body Mass Index 27.79 04/11/2025 10:48 AM EDT Plan of Treatment Upcoming Encounters Date Type Department Care Team (Late st Contact Info) Description 07/30/2025 11:15 AM EDT Office Visit [facility] [address] [place] [address] Imani Fu MD [address] [place] [address] Health Maintenance Due Date Last Done Comments CT Colonography 1950 Colonoscopy 1950 Colorectal Cancer Screening 1950 FIT DNA/Cologuard 1950 FIT 1950 FOBT 1950 Sigmoidoscopy 1950 Pneumococcal Vaccine: 50+ Years (1 of 2 - PCV) 1968 Zoster Vaccines (1 of 2) 12/25/1999 Hepatitis B Vaccines (3 of 3 - Risk 3-dose series) 02/07/2015 09/14/2014, 08/10/2014 Bone Density Scan 04/05/2024 RSV Patients and Patients Aged 60 years or older (1 - 1-dose 75+ series) 2024 Diagnostic Breast Imaging 04/22/2025 10/23/2024, Mammogram 04/22/2025 10/23/2024, 10/05, 09/13/2024, Additional history exists COVID-19 Vaccine (2 - 2024- season) 2025 10/15/2022 Influenza Vaccine (#1) 2025 SDOH Screening 04/03/2026 04/03/2025 Alcohol/Substance Use Screening 04/11/2026 04/11/2025 Depression Screening 04/11/2026 04/11/2025, 04/11/20 Tobacco Screening 07/16/2026 07/16/2025 Lipid Panel 01/20/2029 01/21/2024, 01/22/2022 DTaP/Tdap/Td Vaccines (2 - Td or Tdap) 06/26/2032 06/26/2022 HIB Vaccines Aged [...] topic Meningococcal Vaccine Aged Out No tori douglas eligible based on patient's age to complete this topic RSV under 20 months Aged Out No longe r eligible based on patient's age to complete this topic Rotavirus Vaccines Aged Out No longer eligible based on patient's age to complete this topic Procedures Procedure Name Priority Date/Time Associated Diagnosis Comments POCT URINALYSIS DIPSTICK Routine 07/16/2025 11:36 AM EDT Dysuria BI US BREAST LIMITED BILATERAL Routine 10/23/2024 11:15 AM EST LIPID PANEL, STANDARD Routine 01/21/2024 12:11 PM EDT Heart failure, unspecified HF chronicity, unspecified heart failure type (CMS/HCC) from Last 3 Months or Most Recently Relevant to Health Maintenance Results * POCT Urinalysis (07/16/2025 11:36 AM [...] Urine (Urine, Random) 07/16/2025 11:36 AM EDT [facility] RN ED POINT OF CARE TEST ENTER/EDIT ORDERABLES Final Result * BI US Breast Limited Bilateral (10/23/2024 11:15 AM EST) Anatomical Region Laterality Modality Breast Bilateral Ultrasound 10/23/2024 11:1 5 AM EST Narrative 10/23/2024 12:39 PM EST [address] [place] [address] Ultrasound Report Signed Patient: Erica Rowley MR#: [id number] 961 : 1950 Acct:[id number] Age/Sex: 73 / F ADM Date: 10/23/24 Loc: HO.MAMMO Attending Dr: Imani Fu MD Ordering Physician: Imani Fu MD Date of Service: 10/23/24 Procedure(s): US breast BI limited mamm only Accession Number(s): [id number] cc: Imani Fu MD EXAMINATION: MM DIAGNOSTIC [...] by: Jayda Munson DO 10/23/2024 12:35 PM [facility] Dictated By: Jayda Munson DO Signed By: <Electronically signed by Jayda Munson DO in OV> 10/23/24 1235 DD/ 1115 TD/TT: 10/23/24 1133 Home School Liaison Officer: Procedure Note Donotuseinterpreter, Image - 10/23/2024 [facility] [address] [place] [address] [place] [address] Ultrasound Report Signed Patient: Erica Rowley#: [id number] : 1950Acct:[id number] Age/Sex: 73 / FADM Date: 10/23/24 Loc: HO.MAMMO Attending Dr: Imani Fu MD Ordering Physician: Imani Fu MD Date of Service: 10/23/24 Procedure(s): US breast BI limited mamm only Accession Number(s): [id number] cc: Imani Fu MD EXAMINATION: MM DIAGNOSTIC [...] 10/23/24 1235 DD/ 1115 TD/TT: 10/23/24 1133 Home School Liaison Officer: Imani Fu MD IMG US PROCEDURES Final Resul t * (ABNORMAL) Lipid Panel, Standard (01/21/2024 12:11 PM EDT) Triglycerides 122 <150 mg/dL [facility] Comment:Desirable Triglyceri de: less than 150 mg/dLBorderline High Triglyceride 150-199 mg/dLHigh Triglyceride: 200-499 mg/dLVery High Triglyceride: greater than or equal to 5OO mg/dL Cholesterol 181 <200 mg/dL [facility] Comment:Desirable Cholestero l: less than 200 mg/dLBorderline High Cholesterol: 200-239 mg/dLHigh Cholesterol: greater than 239 mg/dL LDL Cholesterol Calculated 101(H) <100 mg/dL [facility] Comment:Desirable LDL: less than 100 [...] 12:11 PM EDT 01/21/2024 2:38 PM EDT Imani Fu MD LAB BLOOD ORDERABLES Final Re sult [facility] [address] [place], [place] [phone] [phone] from Last 3 Months or Most Recently Relevant to Health Maintenance Insurance [facility] [employer] (HMO D-SNP) [address] [id number] Care Teams Leaf Tier Relationship Specialty Start Date End Date Imani Fu MD [address] [place] [phone] PCP - General Family Medicine 03/16/23
--- OUTSIDE RECORDS SUMMARY | 2025-07-16 11:49 | XMS_ITS | Encounter Summary ---
Author Organization [employer] Address [address] [facility] [address] [place] [address] Care Team Providers Care Hockey Instructor Name Role Phone Imani Fu MD Primary Care Provider [phone] Reason for Visit * Reason Comments Med Refill Encounter Details Date Type Department Care Team ([facility] Contact Info) Description 07/13/2025 Refill [facility] [address] [place] [address] Imani Fu MD [address] [place] [address] Social History Tobacco Use Types Packs/Day Years [...] Description 07/30/2025 11:15 AM EDT Office Visit [facility] [address] [place] [address] Imani Fu MD [address] [place] [address] documented as of this encounter Visit Diagnoses Not on filedocumented in this encounter Additional Health Concerns Assessment Noted Time PHQ-9 Depression Total Score: 3 04/11/20 25 12:15 PM EDT documented as of this encounter Care Teams Hockey Instructor Relationship Specialty Start Date End Date Imani Fu MD [address] [place] [phone] PCP - General Family Medicine 03/16/23 documented as of this encounter
--- OUTSIDE RECORDS SUMMARY | 2025-07-16 11:49 | XMS_ITS | Continuity of Care Document ---
Author Name [facility], Medical Address [address] [place] [address] Organization Unknown Address [address] [place] [address] Medications No known medications Problems No known problems
--- OUTSIDE RECORDS SUMMARY | 2025-07-16 11:49 | XMS_ITS | Encounter Summary ---
Author Organization [facility] Address [address] [place] [address] 7t [place] [address] Care Team Providers Care Metal Furniture Panel Coverer Name Role Phone Toan Hogue Primary Care Provider Unavail able Imani Fu MD Primary Care Provider [phone] Imani Fu MD Primary Care Provider Reason for Visit * Reason Onset Date Comments Referral 11/27/2022 Encounter Details Date Type Department Care Team (Late st Contact Info) Description 11/27/2022 Telephone [facility] [address] [place], [place] [phone] Toan Hogue AGNP Referral Social History Tobacco [...] requesting a referral to be seen at [facility]. Please contact balwinder at [phone] documented in this encounter Plan of Treatment Upcoming Encounters Date Type Department Care Team (Late Contact Info) Description 07/30/2025 11:15 AM EDT Office Visit [facility] [address] [place] [address] Imani Fu MD [address] [place] [address] documented as of this encounter Visit Diagnoses Not on filedocumented in this encounter Care Teams Metal Furniture Panel Coverer Relationship Specialty Start Date End Date Toan Hogue AGNP PCP - General Family Medicine 08/24/22 01/12/23 Imani Fu MD [address] [place] [address] PCP - General Family Medicine 01/13/23 02/10/23 Imani Fu MD [address] [place] [address] PCP - General Family Medicine 03/16/23 documented as of this encounter
--- OUTSIDE RECORDS SUMMARY | 2025-07-16 11:49 | XMS_ITS | Encounter Summary ---
Author Organization [employer] Address [address] [facility] 7t [place] [address] Care Team Providers Care Chemical Production Engineer Name Role Phone Imani Fu MD Primary Care Provider [phone] Encounter Details Date Type Department Care Team (Late st Contact Info) Description 08/30/2023 Abstract [facility] [address] [place], [place] [phone] Patricia Vilchis Social History Tobacco Use Types [...] [facility] [address] [place] [address] Imani Fu MD [address] [place] [address] documented as of this encounter Visit Diagnoses Not on filedocumented in this encounter Additional Health Concerns Assessment Noted Time PHQ-9 Depression Total Score: 9 03/16/20 23 1:19 PM EDT documented as of this encounter Care Teams Chemical Production Engineer Relationship Specialty Start Date End Date Imani Fu MD [address] [place] [address] PCP - General Family Medicine 03/16/23 documented as of this encounter
--- OUTSIDE RECORDS SUMMARY | 2025-07-16 11:50 | XMS_ITS | Clinical Summary ---
Author Organization [facility] Address [address] [place] [address] Care Team Providers Care Upper Extremity Surgeon Name Role Phone Unavailable Primary Care Provider [...] faxed notes from Aislinn Gaona PA-C, at [facility]. However, this is not a medical clearance and seems to be some old notes that do not specify her current treatment for hepatitis C, nor did they indicate what her HbA1c are. Physical exam was not performed today. Plan: I will try to call Ms. Gaona at the [facility] to discuss the patient's current medical status and whether or not it would be safe to bring her to the operating room for this surgery and then we will send for authorization once I speak with her. This is all explained to the patient via an separator operator. She stated she understood the plans and had no further questions. Dictated by: Janette DANIEL Signing Clinician: Kirby Barba MD Dictated: 02/04/2015 11:15:09 Transcribed: 02/04/2015 19:03:05 Transcribed by: AL DocID: [id number] Liver cirrhosis 02/201504/04/2015 Overview (04/04/2015): Result type: US Abdomen Ltd Result date: 21 Feb 2015 11:15 Result status: Auth (Verified) Result title: US Abdomen Ltd Performed by: Lew Mehta DO on 21 Feb 2015 13:46 Verified by: Ambrose Camarillo MD on 21 Feb 2015 13:49 Encounter info: [id number], [facility], One Time OP, 02/21/2015 - 02/21/2015 * [...] on 14 September 2014 10:25 Encounter info: [id number], [facility], One Time OP, 09/14/2014 - 09/14/2014 * [...] developed and its performance characteristics determined by [employer]. It has not been cleared or approved by the Food and Drug Administration. The FDA has determined that such clearance or approval is not necessary. For questions regarding this report please contact [facility] Customer Service Department at . TEST PERFORMED AT: [facility] [address] [place] [address] Overweight 05/19/2014 Pre-diabetes 05/18/2014 Overview (05/19/2014): Carries a diagnosis of type 2 DM For months on no treatment Lab Results Component Value Date HGBA1C 5.4 05/18/2014 DJD (degenerative joint disease) 05/18/2014 Osteopenia 04/03/2013 Overview (01/01/2016): DEXA 04/03/13 at [facility]= osteopenia femoral neck Immunizations Immunization Administration Dates Next Due Hep B, Adult/Adol (AQLMYPW-V-ROOII/RECOMBIVAX-AD ULT) 09/14/2014,08/10/2014 Family History Medical History Relation Name Comments [...] 63 02/27/2016 9:56 AM EDT Temperature 36.6 C (97.9 F) 02/27/2016 9:56 AM EDT Respiratory Rate 16 02/27/2016 9:56 AM EDT Oxygen Saturation 95% 04/04/2015 2:08 PM EDT Inhaled Oxygen Concentration - - Weight 68 kg (150 lb) 01/01/2016 1:54 PM EDT Height 154.9 cm (5' 1 ) 01/01/2016 1:54 PM EDT Body Mass Index 28.34 01/01/2016 1:54 PM EDT Plan of Treatment Not on file Insurance [facility]
[2025-07-16 14:22] LABS: Hematocrit 28.7 % (37.0-47.0); Hemoglobin 9.1 g/dl (12.0-16.0); Imm Gran Abs Auto 0.00 X10*3/uL (0.00-0.03); Imm Gran Pct Auto 0.0 % (0.0-0.4); Lymphocytes Absolute Auto 0.6 X10*3/uL (1.2-4.9); Mean Corpuscular HGB Conc 31.7 g/dl (31.0-35.0); Mean Corpuscular Hemoglobin 28.6 pg (27.0-33.0); Mean Corpuscular Volume 90.3 fL (80.0-98.0); NRBC Abs Auto 0.000 X10*3/uL (0.0-0.012); NRBC Pct Auto 0.0 /100WBC (0.0-0.2); Platelet Count 220 X10*3/uL (160-400); Red Blood Count 3.18 X10*6/uL (4.20-5.50); White Blood Count 2.2 X10*3/uL (4.8-10.8)
[2025-07-16 14:36] LABS: Alanine Aminotransferase 16 U/L (0-31); Albumin Level 4.3 g/dL (3.5-5.0); Alkaline Phosphatase 48 U/L (39-117); Anion Gap 12 (12-20); Aspartate Amino Transferase 27 U/L (5-31); Blood Urea Nitrogen 29 mg/dL (9-16); Calcium 8.9 mg/dL (8.4-10.2); Carbon Dioxide 24 mmol/L (22-29); Chloride 111 mmol/L (96-108); Estimated Glomerular Filt Rate 53; Potassium 3.9 mmol/L (3.3-5.1); Sodium 143 mmol/L (135-145); Total Protein 6.2 g/dL (6.5-8.0)
== END 2025-07-16 11:47 | disposition home or self-care (01) ==
LOC: HO.CHCLDS 11:46
PROVIDERS: Visit Provider Registered Nurse
DX: R30.0 Dysuria (principal)
CPT/HCPCS: 36415; 80053; 85025; 87086

== ENCOUNTER 2025-07-19 10:01 | Outpatient (REF) | payer OTHER, SELFPAY ==
--- OUTSIDE RECORDS SUMMARY | 2025-07-16 11:15 | XMS_ITS | Encounter Summary ---
Author Organization [employer] Address [address] [place] [address] 7[address] [place] [address] Care Team Providers Care Varnish Filterer Name Role Phone Imani Fu MD Primary Care Provider Reason for Referral * Imaging (Urgent) - Authorized Specialty Diagnoses / Procedures Referred By Sun fam Referred To Contact Radiology Diagnoses Right costovertebral angle tenderness Procedures US RENAL BI Antonietta Li FNP [address] [place] [address] Phone: tel: fax: [address] Phone: tel: fax: Referral ID Status Reason Start Date Expiration Date V isits Requested Visits Authorized [id number] Authorized 07/16/2025 07/16/2026 1 1 Encounter Details Date Type Department Care Team (Latest Contact Info) Description 07/16/2025 11:15 AM EDT Office Visit [facility] & P[facility]S [address] [place] [address] Antonietta Li FNP [address] [place] [address] Dysuria (Primary Dx); Right costovertebral angle tenderness Social History Tobacco Use Types Packs/Day Years Used Date Smoking Tobacco: Never Passive Smoke Exposure: Never Smokeless Tobacco: Never Alcohol Use Standard Drinks/Week Comments Never 0 (1 standard drink = 0.6 oz pur e alcohol) Depression Answer Date Recorded Patient Health Questionnaire-9 Score 3 04/11/2025 Patient Health Questionnaire-9 Score 3 04/11/2025 Last PHQ-9: Questionnaire Data Not on file 0 04/11/2025 Housing Stability Answer Date Recorded What is your housing situation today? I have gilles harrison 04/03/[address] you li ve. Do you have problems with any of the following? None of the above 04/03/2025 Food Insecurity Answer Date Recorded Within the past 12 months, y ou worried that your food would run out before you got money to buy more: Never True 04/03/2025 Within the past 12 months,th e food you bought just didn't last and you didn't have enough money to get more: Never True 10/2024 Transportation Answer Date Recorded In the past 12 months, has l ack of transportation kept you from medical appts, meetings, work or from getting things needed for daily living? No 04/03/2025 Utilities Answer Date Recorded In the past 12 months, has t he electric, gas, oil or water company threatened to shut off services in your home? No 04/03/2025 Depression Answer Date Recorded Patient Health Questionnaire-2 Score 2 04/11/2025 Internet Access Answer Date Recorded Internet Access Q1 Yes 04/03/2025 Internet Access Q2 Not on file 04/03/2025 Comments No Sex and Gender Information Value Date Recorded Sex Assigned at Female 08/03/2022 10:25 AM EDT Legal Sex Female 10:25 AM EDT Gender Identity Female 08/03/2022 10:25 AM EDT Sexual Orientation Straight 08/03/2022 10 :25 AM EDT documented as of this encounter Last Filed Vital Signs Vital Sign Reading Time Taken Comments Blood Pressure 118/60 07/16/2025 10:59 AM EDT Pulse 88 07/16/2025 10:59 AM EDT Temperature 37.5 C (99.5 F) 07/16/2025 10:59 AM EDT Respiratory Rate 20 07/16/2025 10:59 AM EDT Oxygen Saturation - - Inhaled Oxygen Concentration - - Weight 61.7 kg (136 lb) 07/16/2025 10:59 AM EDT Height - - Body Mass Index 27.79 04/11/2025 10:48 AM EDT documented in this encounter Progress Notes * [facility] - 07/16/2025 11:15 AM EDT SUBJECTIVE: Erica Rowley is a 74 y.o. year old female with breast cancer currently undergoing chemotherapy, prediabetes, hypertension, osteoporosis who presents for evaluation of dysuria. Accompanied by BUILDING TECH HPI Pt reports intermittent right lower abdominal/pelvic pain radiating to right back x 1 month a/w burning with urination and dark colored urine. Symptom are not worsening. Generally feeling unwell although notes she is also currently undergoing chemotherapy and attributes malaise to side effects. PCAdenies any episodes of confusion/delirium. Symptoms improve with ibuprofen. No fever, chills, nausea/vomiting. Problem List[1] Review of Systems Constitutional: Negative for chills and fever. Gastrointestinal: Negative for abdominal pain, nausea and vomiting. Genitourinary: Positive for dysuria and pelvic pain. Negative for frequency, hematuria and urgency. Musculoskeletal: Negative for back pain. OBJECTIVE: Vitals: 07/16/25 1059 BP: 118/60 Pulse: 88 Resp: 20 Temp: 99.5 ??F (37.5 ??C) Physical Exam Constitutional: General: She is not in acute distress. Appearance: Normal appearance. HENT: Head: Normocephalic and atraumatic. Right Ear: External ear normal. Left Ear: External ear normal. Nose: Nose normal. Eyes: Conjunctiva/sclera: Conjunctivae normal. Cardiovascular: Rate and Rhythm: Normal rate and regular rhythm. Heart sounds: Normal heart sounds. Pulmonary: Effort: Pulmonary effort is normal. Breath sounds: Normal breath sounds. Abdominal: General: There is no distension. Palpations: Abdomen is soft. There is no mass. Tenderness: There is no abdominal tenderness. There is right CVA tenderness. Skin: General: Skin is warm and dry. Neurological: General: No focal deficit present. Mental Status: She is alert and oriented to person, place, and time. Psychiatric: Mood and Affect: Mood normal. Behavior: Behavior normal. ASSESSMENT/PLAN Dysuria - Mild right CVA tenderness on PE. Pt otherwise well appearing. VSS. - UA in office unremarkable-->negative blood, leukocytes, nitrites, color clear yellow - Low suspicion for infection; will send urine for culture - Concern for possible nephrolithiasis given intermittent nature of symptoms and flank pain-->will evaluate with renal ultrasound - Check CBC, CMP - Strict ED precautions advised to include fever, worsening symptoms, behavior changes. - Short term follow up with PCP 2 weeks Diagnosis Plan 1. Dysuria POCT Urinalysis CBC auto differential Comprehensive Metabolic Panel CBC auto differential Comprehensive Metabolic Panel Culture, Urine, Routine Culture, Urine, Routine 2. Right costovertebral angle tenderness US RENAL BI US RENAL BI Follow Up: Medications Ordered Prior to Encounter[2] Faroese Translation: Provided by [facility] staff member [1] Patient Active Problem List Diagnosis GERD (gastroesophageal reflux disease) Benign essential hypertension Osteoporosis Chronic hepatitis C virus infection (CMS/HCC) (HCC) Depression with anxiety Varicose veins of both lower extremities Atrophic vaginitis Right hip pain Heart failure, unspecified HF chronicity, unspecified heart failure type (HCC) Dilated pore of [place] Left hip pain Pre-diabetes Malignant neoplasm of both breasts in female, estrogen receptor negative (CMS/HCC) (HCC) Adjustment disorder, unspecified [2] Current Outpatient Medications on File Prior to Visit Medication Sig Dispense Refill albuterol 108 (90 Base) MCG/ACT inhaler Inhale 2 puffs every 4 (four) hours if needed for wheezing.18 g 0 alendronate (Fosamax) 70 MG tablet TAKE 1 TABLET (70 MG) BY MOUTH EVERY 7 (SEVEN) DAYS. TAKE IN THEMORNING WITH A FULL GLASS OF WATER, ON AN EMPTY STOMACH, DO NOT TAKE ANYTHING ELSE OR LIE DOWN FOR THE NEXT 30 MIN. 4 tablet 5 amLODIPine (Norvasc) 5 MG tablet TAKE 1 TABLET (5 MG) BY MOUTH ONCE PER DAY. 30 tablet 3 Artificial Tears 0.2-0.2-1 % solution Use as directed Bisacodyl EC 5 MG EC tablet calcium carbonate 1500 (600 Ca) MG tablet Take 1 tablet (1,500 mg) by mouth with breakfast and withevening meal. 60 tablet 11 cholecalciferol (Vitamin D3) 25 MCG (1000 UT) tablet TAKE 1 TABLET BY MOUTH IN THE MORNING. 120 tablet 3 diclofenac (Voltaren) 50 MG EC tablet Take 1 tablet (50 mg) by mouth 3 times daily. Do not crush, chew, or split. 90 tablet 1 Diclofenac Sodium (Voltaren Arthritis Pain) 1 % gel Apply 2 g topically if needed in the morning, at noon, in the evening, and at bedtime (pain). Apply to tender areas of feet 50 g 1 docusate sodium (Colace) 100 MG capsule TAKE 1 CAPSULE BY MOUTH TWICE DAILY NEEDED 180 capsule 0 lidocaine-prilocaine (Emla) 2.5-2.5 % cream melatonin 5 MG tablet Take 1 tablet (5 mg) by mouth at bedtime. 90 tablet 1 metoprolol succinate XL (Toprol-XL) 25 MG 24 hr tablet Take 1 tablet (25 mg) by mouth in the morning. 30 tablet 4 miconazole (Micatin) 2 % cream Apply topically 2 times daily. 30 g 2 Multiple Vitamins-Minerals (PreserVision AREDS 2) capsule omeprazole (PriLOSEC) [address] capsule Take 1 capsule (20 mg) by mouth before breakfast. Take 1 capsule daily before a meal 90 capsule 1 polyethylene glycol, PEG, 3350 (Glycolax) 17 GM/SCOOP powder RA Lubricant Eye Drops 0.5 % ophthalmic solution senna (Senokot) 8.6 MG tablet Take 1 tablet by mouth at bedtime [DISCONTINUED] amLODIPine (Norvasc) 5 MG tablet Take 1 tablet (5 mg) by mouth Once per day. 30 tablet 1 No current facility-administered medications on file prior to visit. documented in this encounter Plan of Treatment Upcoming Encounters Date Type Department Care Team (Late st Contact Info) Description 07/30/2025 11:15 AM EDT Office Visit [facility] MED & PEDS [address] [place] [address] Imani Fu MD [address] [place] [address] Scheduled Orders Name Type Priority Associated Diagnoses Orde r Schedule US RENAL BI Imaging Urgent Right costovertebral angle tenderness Expected: 07/16/2025, Expires: 07/16/2026 documented as of this encounter Procedures Procedure Name Priority Date/Time Associated Diagnosis Comments CBC WITH AUTO DIFFERENTIAL Routine 07/16/2025 11:47 AM EDT Dysuria COMPREHENSIVE METABOLIC PANEL Routine 07/16/2025 11:47 AM EDT Dysuria POCT URINALYSIS DIPSTICK Routine 07/16/2025 11:36 AM EDT Dysuria CULTURE, URINE, ROUTINE Routine 07/16/2025 11:20 AM EDT Dysuria documented in this encounter Results * (ABNORMAL) Comprehensive Metabolic Panel (07/16/2025 11:47 AM EDT) Sodium 143 135 - 145 mmol/L [facility] Potassium 3.9 3.3 - 5.1 mmol/L [facility] Chloride 111(H) 96 - 108 mmol/L [facility] Carbon Dioxide 24 22 - 29 mmol/L [facility] Anion Gap 12 12 - 20 [facility] Urea Nitrogen (BUN) 29(H) 9 - 16 mg/dL [facility] Creatinine, Serum 1.02 0.5 - 1.4 mg/dL [facility] Estimated Glomerular Filt Rate 53 [facility] Comment:Chronic Kidney Disea se: Estimated GFR < 60 mL/min/1.58g8Uhbzmt Kidney Disease: Estimated GFR < 15 mL/min/1.73m2 Glucose 109 60 - 115 mg/dL [facility] Calcium 8.9 8.4 - 10.2 mg/dL [facility] Bilirubin, Total 1.2(H) 0.0 - 1.0 mg/dL [facility] Aspartate Amino Transferase 27 5 - 31 U/L [facility] Alanine Aminotransferase 16 0 - 31 U/L [facility] Total Protein 6.2(L) 6.5 - 8.0 g/dL [facility] Albumin Level 4.3 3.5 - 5.0 g/dL [facility] Alkaline Phosphatase 48 39 - 117 U/L [facility] Blood Venous blood specimen / Unknown 07/16/2025 11:47 AM EDT 07/16/2025 2:09 PM EDT [facility] LAB BLOOD ORDERABLES Final Re sult [facility] [address] [place] [address] [phone] * (ABNORMAL) CBC auto differential (07/16/2025 11:47 AM EDT) White Blood Count 2.2(L) 4.8 - 10.8 X10*3/uL [facility] Red Blood Count 3.18(L) 4.20 - 5.50 X10*6/uL [facility] Hemoglobin 9.1(L) 12.0 - 16.0 g/dl [facility] Hematocrit 28.7(L) 37.0 - 47.0 % [facility] Mean Corpuscular Volume 90.3 80.0 - 98.0 fL [facility] Mean Corpuscular Hemoglobin 28.6 27.0 - 33.0 pg [facility] Mean Corpuscular HGB Conc 31.7 31.0 - 35.0 g/dl [facility] Red Cell Distribution Width 16.2(H) 11.0 - 16.0 % [facility] Platelet Count 220 160 - 400 X10*3/uL [facility] Mean Platelet Volume 11.4 9.4 - 12.3 fL [facility] Neutrophils Percent Auto 70.0 45 - 73 % [facility] Imm Gran Pct Auto 0.0 0.0 - 0.4 % [facility] Lymphocytes Percent Auto 25.6 20 - 40 % [facility] Monocytes Percent Auto 3.1 2 - 11 % [facility] Eosinophils Percent Auto 0.4 0 - 4 % [facility] Basophils Percent Auto 0.9 0 - 2 % [facility] NRBC Pct Auto 0.0 0.0 - 0.2 /100WBC [facility] Neutrophils Absolute Auto 1.6(L) 2.0 - 8.3 x10*3/uL [facility] Imm Gran Abs Auto 0.00 0.00 - 0.03 X10*3/uL [facility] Lymphocytes Absolute Auto 0.6(L) 1.2 - 4.9 X10*3/uL [facility] Monocytes Absolute Auto 0.1 0.1 - 1.2 X10*3/uL [facility] Eosinophils Absolute Auto 0.0 0.0 - 0.4 X10*3/uL [facility] Basophils Absolute Auto 0.0 0.0 - 0.2 X10*3/uL [facility] NRBC Abs Auto 0.000 0.0 - 0.012 X10*3/uL [facility] Blood Venous blood specimen / Unknown 07/16/2025 11:47 AM EDT 07/16/2025 2:14 PM EDT [facility] LAB BLOOD ORDERABLES Edited R esult - Final [facility] [address] [place] [phone] * POCT Urinalysis (07/16/2025 11:36 AM EDT) Color, UA Yellow Clarity, UA Clear Glucose, UA Negative Bilirubin, UA Few 15 Comment:small Ketones, UA Positive Comment:trace Spec Grav, UA 1.025 Blood, UA Negative Negative, None Detected pH, UA 5.5 Protein, UA Many Comment:30mg/dL Urobilinogen, UA 0.2 Leukocytes, UA Negative Negative, Rare, Trace Nitrite, UA Negative Negative, None Detected Appearance, UA clear QC Media Lot # [id number] Lot# Expiration Date 41 Urine (Urine, Random) 07/16/2025 11:36 AM EDT [facility] POINT OF CARE TEST ENTER/EDIT ORDERABLES Final Result * Culture, Urine, Routine (07/16/2025 11:20 AM EDT) Urine Urine specimen obtained by clean catch procedure / Unknown 07/16/2025 11:20 AM EDT 07/16/2025 1:58 PM EDT Comment:UACC Narrative [facility] - 07/17/2025 10:04 AM EDT Urine Culture No growth. Specimen Source: Urine clean catch [facility] BANKING ASSISTANT LAB MICROBIOLOGY - GENERAL OR DERABLES Final Result [facility] [address] [place] [phone] [phone] documented in this encounter Visit Diagnoses Diagnosis Dysuria- Primary Right costovertebral angle tenderness documented in this encounter Additional Health Concerns Assessment Noted Time PHQ-9 Depression Total Score: 3 04/11/20 25 12:15 PM EDT documented as of this encounter Care Teams Varnish Filterer Relationship Specialty Start Date End Date Imani Fu MD [address] [place] [address] PCP - General Family Medicine 03/16/23 documented as of this encounter
--- OUTSIDE RECORDS SUMMARY | 2025-07-19 11:57 | XMS_ITS | Clinical Summary ---
Author Organization [employer] Address [address] [place] [address] 7t [place] [address] Care Team Providers Care Forming And Assembling Supervisor Name Role Phone Imani Fu MD Primary Care Provider [phone] Allergies No known active allergies Medications * This document contains information received from the source organization and may not represent a complete record from that organization. Artificial Tears 0.2-0.2-1 % solution Use as directed 11/09/19 23 Active senna (Senokot) 8.6 MG tablet Take 1 tablet by mouth at bedtime 11/09/19 23 Active Multiple Vitamins-Mason als (PreserVision AREDS 2) capsule 05/13/20 23 [...] left breast. Plan: - Follow up with [facility] for ongoing cancer treatment - - Attempt [...] Center 10/06/2024 1:00 PM Imani Fu MD [facility] 10/11/2024 11:00 AM [facility] SAME DAY CARE [facility] Dilated pore of [place] 02/15/2024 Assessment & [...] 04/03/2013 05/14/2023 Overview (11/06/2022): DEXA 04/03/13 at [facility]= osteopenia femoral neck Encounters * This document contains information received from the source organization and may not represent a complete record from that organization. Date Type Department Care Team Description 07/16/2025 11:15 AM EDT Office Visit [facility] [address] [place] [address] [place] F[place] Dysuria (Primary Dx); Right costovertebral angle tenderness 07/16/2025 Orders Only [address] [address] [place] AntoniettaEDP 07/16/2025 Results Follow-Up [facility] [address] [place] [address] [place] F[place] POCT Urinalysis, CBC auto differential, Comprehensive Metabolic Panel 07/16/2025 Travel 07/13/2025 Telephone [facility] [address] [place] [address] Imani Fu MD Chart Prep 07/13/2025 Refill [facility] [address] [place] [address] Imani Fu MD 06/07/2025 Patient Outreach [address] [address] Imani Fu MD Pre-visit Planning ([facility] screening completed on 04/03/25) 05/08/2025 Refill [facility] [address] [place] [address] Imani Fu MD 05/04/2025 Patient Outreach [facility] [address] [place] [address] Imani Fu MD Pre-visit Planning (SDOH screening completed on 04/03/25 ) 05/01/2025 2:30 PM EDT Clinical Support [facility] [address] [place] [address] Galilea Rodriguez RN Benign essential hypertension [I10] 05/01/2025 Travel 04/20/2025 Telephone [facility] [address] [place], [place] [phone] Imani Fu MD No Show from Last [...] Description 07/30/2025 11:15 AM EDT Office Visit [facility] [address] [place] [address] Imani Fu MD [address] [place] [address] Health Maintenance Due Date Last Done Comments [...] Additional history exists COVID-19 Vaccine (2 - season) 2025 10/15/2022 Influenza Vaccine (#1) 2025 [...] Procedure Name Priority Date/Time Associated Diagnosis Comments PATHOLOGIST REVIEW - CBC Routine 07/16/2025 11:47 AM EDT COMPREHENSIVE METABOLIC PANEL Routine 07/16/2025 11:47 AM EDT Dysuria CBC WITH AUTO DIFFERENTIAL Routine 07/16/2025 11:47 AM EDT Dysuria POCT URINALYSIS DIPSTICK Routine 07/16/2025 11:36 AM EDT Dysuria CULTURE, URINE, ROUTINE Routine 07/16/2025 11:20 AM EDT Dysuria BI US BREAST LIMITED BILATERAL Routine 10/23/2024 11:15 AM EST LIPID PANEL, STANDARD Routine 01/21/2024 12:11 PM EDT Heart failure, unspecified HF chronicity, unspecified heart failure type (CMS/HCC) from Last 3 Months or Most Recently Relevant to Health Maintenance Results * Pathologist Review - CBC (07/16/2025 11:47 AM EDT) Pathologist Review - CBC SEE NOTE [facility] Comment:Normochromic normocy tic anemia; scattered ovalocytes arepresent. White blood cells are decreased in number butotherwise normal-appearing.- Hao Hernández M.D. Pathology 07/16/2025 11:4 7 AM EDT 07/16/2025 2:14 PM EDT [facility] LAB BLOOD ORDERABLES Final Re sult [facility] [address] [place] [phone] * (ABNORMAL) CBC auto differential (07/16/2025 11:47 AM EDT) White Blood Count 2.2(L) 4.8 - 10.8 X10*3/uL [facility] Red Blood Count 3.18(L) 4.20 - 5.50 X10*6/uL [facility] Hemoglobin 9.1(L) 12.0 - 16.0 g/dl [facility] Hematocrit 28.7(L) 37.0 - 47.0 % [facility] Mean Corpuscular Volume 90.3 80.0 - 98.0 fL [facility] Mean Corpuscular Hemoglobin 28.6 27.0 - 33.0 pg [facility] Mean Corpuscular HGB Conc 31.7 31.0 - 35.0 g/dl [facility] Red Cell Distribution Width 16.2(H) 11.0 - 16.0 % [facility] Platelet Count 220 160 - 400 X10*3/uL [facility] Mean Platelet Volume 11.4 9.4 - 12.3 fL [facility] Neutrophils Percent Auto 70.0 45 - 73 % [facility] Imm Gran Pct Auto 0.0 0.0 - 0.4 % [facility] Lymphocytes Percent Auto 25.6 20 - 40 % [facility] Monocytes Percent Auto 3.1 2 - 11 % [facility] Eosinophils Percent Auto 0.4 0 - 4 % [facility] Basophils Percent Auto 0.9 0 - 2 % [facility] NRBC Pct Auto 0.0 0.0 - 0.2 /100WBC [facility] Neutrophils Absolute Auto 1.6(L) 2.0 - 8.3 x10*3/uL [facility] Imm Gran Abs Auto 0.00 0.00 - 0.03 X10*3/uL [facility] Lymphocytes Absolute Auto 0.6(L) 1.2 - 4.9 X10*3/uL [facility] Monocytes Absolute Auto 0.1 0.1 - 1.2 X10*3/uL [facility] Eosinophils Absolute Auto 0.0 0.0 - 0.4 X10*3/uL [facility] Basophils Absolute Auto 0.0 0.0 - 0.2 X10*3/uL [facility] NRBC Abs Auto 0.000 0.0 - 0.012 X10*3/uL [facility] Blood Venous blood specimen / Unknown 07/16/2025 11:47 AM EDT 07/16/2025 2:14 PM EDT [facility] FRACTIONATION SUPERVISOR LAB BLOOD ORDERABLES Edited R esult - Final [facility] [address] [place] [address] [phone] * (ABNORMAL) Comprehensive Metabolic Panel (07/16/2025 11:47 AM EDT) Sodium 143 135 - 145 mmol/L [facility] Potassium 3.9 3.3 - 5.1 mmol/L [facility] Chloride 111(H) 96 - 108 mmol/L [facility] Carbon Dioxide 24 22 - 29 mmol/L [facility] Anion Gap 12 12 - 20 [facility] Urea Nitrogen (BUN) 29(H) 9 - 16 mg/dL [facility] Creatinine, Serum 1.02 0.5 - 1.4 mg/dL [facility] Estimated Glomerular Filt Rate 53 [facility] Comment:Chronic Kidney Disea se: Estimated GFR < 60 mL/min/[id number] Kidney Disease: Estimated GFR < 15 mL/min/1.73m2 Glucose 109 60 - 115 mg/dL [facility] Calcium 8.9 8.4 - 10.2 mg/dL [facility] Bilirubin, Total 1.2(H) 0.0 - 1.0 mg/dL [facility] Aspartate Amino Transferase 27 5 - 31 U/L [facility] Alanine Aminotransferase 16 0 - 31 U/L [facility] Total Protein 6.2(L) 6.5 - 8.0 g/dL [facility] Albumin Level 4.3 3.5 - 5.0 g/dL [facility] Alkaline Phosphatase 48 39 - 117 U/L [facility] Blood Venous blood specimen / Unknown 07/16/2025 11:47 AM EDT 07/16/2025 2:09 PM EDT [facility] FRACTIONATION SUPERVISOR LAB BLOOD ORDERABLES Final Re sult Performing Organization Address [facility]/ZIP Co de Phone Number [facility] [address] [place] [address] [phone] * POCT Urinalysis (07/16/2025 11:36 AM [...] Urine (Urine, Random) 07/16/2025 11:36 AM EDT [facility] POINT OF CARE TEST ENTER/EDIT ORDERABLES Final Result * Culture, Urine, Routine (07/16/2025 11:20 AM EDT) Urine Urine specimen obtained by clean catch procedure / Unknown 07/16/2025 11:20 AM EDT 07/16/2025 1:58 PM EDT Comment:UACC Narrative [facility] - 07/17/2025 10:04 AM EDT Urine Culture No growth. Specimen Source: Urine clean catch [facility] LAB MICROBIOLOGY - GENERAL OR DERABLES Final Result [facility] [address] [place] [address] [phone] * BI US Breast Limited Bilateral (10/23/2024 11:15 AM EST) Anatomical Region Laterality Modality Breast Bilateral Ultrasound 10/23/2024 11:1 5 AM EST Narrative 10/23/2024 12:39 PM EST [facility] [address] [place] [address] Ultrasound Report Signed Patient: Erica Rowley MR#: [id number] [id number] : 1950 Acct:[id number] Age/Sex: 73 / F ADM Date: 10/23/24 Loc: HO.MAMMO Attending Dr: Imani Fu MD Ordering Physician: Imani Fu MD Date of Service: 10/23/24 Procedure(s): US breast BI limited mamm only Accession Number(s): [id number] cc: Imani Fu MD EXAMINATION: MM DIAGNOSTIC [...] 10/23/24 1235 DD/ 1115 TD/TT: 10/23/24 1133 Leather Etcher: Procedure Note Donotuseinterpreter, Image - [facility]/23/[facility] [address] [place] [address] Ultrasound Report Signed Patient: Erica Rowley#: [id number] : 1950Acct:[id number] Age/Sex: 73 / FADM Date: 10/23/24 Loc: HO.MAMMO Attending Dr: Imani Fu MD Ordering Physician: Imani Fu MD Date of Service: 10/23/24 Procedure(s): US breast BI limited mamm only Accession Number(s): [id number] cc: Imani Fu MD EXAMINATION: MM DIAGNOSTIC [...] DO 10/23/2024 12:35 PM [facility] Dictated By: Jayda Munson DO Signed By: <Electronically signed by Jayda Munson DO in OV> 10/23/24 1235 DD/ 1115 TD/TT: 10/23/24 1133 Leather Etcher: us Imani Fu MD IMG US PROCEDURES Final Resul t * (ABNORMAL) Lipid Panel, Standard (01/21/2024 12:11 PM EDT) Triglycerides 122 <150 mg/dL [facility] Comment:Desirable Triglyceri de: less than 150 mg/dLBorderline High Triglyceride 150-199 mg/dLHigh Triglyceride: 200-499 mg/dLVery High Triglyceride: greater than or equal to 5OO mg/dL Cholesterol 181 <200 mg/dL [facility] Comment:Desirable Cholestero l: less than 200 mg/dLBorderline High Cholesterol: 200-239 mg/dLHigh Cholesterol: greater than 239 mg/dL LDL Cholesterol Calculated 101(H) <100 mg/dL [facility] Comment:Desirable LDL: less than 100 mg/dLNear Optimal/Above Optimal LDL: 110- 129 mg/dLBorderline High LDL: 130-159 mg/dLHigh LDL: 160-189 mg/dLVery High LDL: greater than or equal to 190 mg/dL HDL Cholesterol 56 >40 mg/dL [facility] Comment:Desirable HDL: great er than 40 mg/dL Note: This HDL assay may give artificially low results in patients with liver disease. Blood Venous blood specimen / Unknown 01/21/2024 12:11 PM EDT 01/21/2024 2:38 PM EDT us Imani Fu MD LAB BLOOD ORDERABLES Final Re sult [facility] [address] [place] [address] [phone] from Last 3 Months or Most Recently Relevant to Health Maintenance Insurance [facility] [employer] (HMO D-SNP) FREDY YBARRA [id number] Care Teams Forming And Assembling Supervisor Relationship Specialty Start Date End Date Imani Fu MD [address] [place] [address] PCP - General Family Medicine 03/16/23
--- OUTSIDE RECORDS SUMMARY | 2025-07-19 11:57 | XMS_ITS | Encounter Summary ---
Author Organization [employer] Address [address] [facility] 7t [place] [address] Care Team Providers Care Chemical Tester Name Role Phone Imani Fu MD Primary Care Provider [phone] Encounter Details Date Type Department Care Team (Late st Contact Info) Description 08/30/2023 Abstract [facility] [address] [place], [place] [phone] Patricia Vilchis Social History Tobacco Use Types [...] Description 07/30/2025 11:15 AM EDT Office Visit [facility] [address] [place] [address] Imani Fu MD [address] [place] [address] documented as of this encounter Visit Diagnoses Not on filedocumented in this encounter Additional Health Concerns Assessment Noted Time PHQ-9 Depression Total Score: 9 03/16/20 23 1:19 PM EDT documented as of this encounter Care Teams Chemical Tester Relationship Specialty Start Date End Date Imani Fu MD [address] [place] [phone] PCP - General Family Medicine 03/16/23 documented as of this encounter
--- OUTSIDE RECORDS SUMMARY | 2025-07-19 11:57 | XMS_ITS | Encounter Summary ---
Author Organization [employer] Address [address] [facility] 7t [place] [address] Care Team Providers Care Multiple Drum Sander Name Role Phone Imani Fu MD Primary Care Provider [phone] Reason for Visit * Reason Onset Date Comments Results 07/16/2025 Encounter Details Date Type Department Care Team (Latest Contact Info) Description 07/16/2025 Results Follow-Up [facility] [address] [place], [place] [phone] [facility] [address] [place] [address] POCT Urinalysis, CBC auto differential, Comprehensive Metabolic Panel Social History Tobacco Use Types Packs/Day Years [...] encounter Miscellaneous Notes * Telephone Encounter - Verónica Kessler RN - 07/18/2025 9:54 AM EDT TC placed to the pt with S foreign language interpreter #[id number] to inform of the pt results as ordered by Antonietta Li. The pt was advised that the results are expected d/t pt current chemotherapy regimen and therewere no acute findings. The pt was agreeable and will follow up with PCP at next appointment on 07/30/2025. ----- Message from Antonietta Li sent at 07/16/2025 3:21 PM EDT ----- CBC with leukopenia, neutropenia and anemia c/w labs through oncology and expected in setting of current chemotherapy regimen. Please let patient know that there were no acute findings/changes on recent blood work. Thank you! ----- Message ----- From: Kacey Beltran MA Sent: 07/16/2025 11:38 AM EDT To: ISABELA Cornell documented in this encounter Plan of Treatment Upcoming Encounters Date Type Department Care Team (Late st Contact Info) Description 07/30/2025 11:15 AM EDT Office Visit [facility] [address] [place] [address] Imani Fu MD [address] [place] [address] documented as of this encounter Visit Diagnoses Not on filedocumented in this encounter Additional Health Concerns Assessment Noted Time PHQ-9 Depression Total Score: 3 04/11/20 25 12:15 PM EDT documented as of this encounter Care Teams Multiple Drum Sander Relationship Specialty Start Date End Date Imani Fu MD [address] [place] [address] PCP - General Family Medicine 03/16/23 documented as of this encounter
--- OUTSIDE RECORDS SUMMARY | 2025-07-19 11:57 | XMS_ITS | Clinical Summary ---
Author Organization [facility] Address [address] [place] [address] Phone Care Team Providers Care Juice Weigher Name Role Phone Chan Davies MD Primary Care Provider [phone] Allergies No known active allergies Medications diclofenac [...] 019 Chronic hepatitis C virus in fection ([facility]/HCC V24, CMS/HCC V28) 06/01/2018 Esophageal reflux 06/01/2018 [...] TEST Routine 09/18/2021 LIPID PANEL Routine 11/28/2020 [facility] SCREENING DIGITAL Routine 01/23/2019 1:47 PM EDT Encounter for screening mammogram for malignant neoplasm of breast from Last 3 Months or Most Recently Relevant to Health Maintenance Results * Annual BMP Blood Test (09/18/2021) [facility] Annual BMP Blood Test abstracted [facility] Provider HEALTH MAINTENANCE Final Result * Hepatitis C Screening (09/18/2021) [facility] Hepatitis C Screening abstracted [facility] Provider HEALTH MAINTENANCE Final Result * Lipid panel (11/28/2020) [facility] LDL/HDL Ratio 2 0 - 4 Triglycerides 135 0 - 150 mg/dL Cholesterol 174 0 - 200 mg/dL HDL 82 >=40 mg/dL LDL Cholesterol 65 0 - 100 mg/dL Blood Venous blood specimen / Unknown [facility] Provider LAB BLOOD ORDERABLES [place] l Result * [facility] SCREENING DIGITAL (01/23/2019 1:47 PM EDT) Anatomical Region Laterality Modality Mammography 01/23/2019 10:5 5 AM EDT Narrative 01/23/2019 1:47 PM EDT [facility] Diagnostic Imaging Department [address] [place] [id number] Patient: ERICA ABREU./Age/Sex: 1950 - 68 - F Unit#: [id number] [facility] CLI Mnemonic/Ordering Site: [facility] Ordering Physician: ALBARO FRYE MD [facility] Screening Digital - 01/23/19 - 1124 INDICATION: SCREENING COMPARISON: 09/22/2017 and additional outside mammograms obtained annually dating back to 01/08/2014 TECHNIQUE: CC and MLO views of the breasts were obtained, using full field digital mammography with 3D tomosynthesis views in the MLO projection. Computer aided detection with the Threadbox 7.2-H was employed. Benign left breast biopsy [...] a target date for the next mammogram. [id number] / [id number]) , [id number] Dictating Physician: SOURAV CASEY MD Electronically Signed by: SOURAV CASEY MD Dic Date/Time: 01/23/19 1343 Sign date/Time: 01/23/19 1347 Procedure Note Sourav Casey MD - 09/22/2022 [facility] Diagnostic Imaging Department [address] [place] [address] Patient: ERICA ABREU./Age/Sex: 1950 - 68 -F Unit#: [id number] [facility] CLI Mnemonic/Ordering Site: [facility] Ordering Physician: ALBARO FRYE MD [facility] Screening Digital - 01/23/19 - 1124 INDICATION: SCREENING COMPARISON: 09/22/2017 and additional outside mammograms obtainedannually dating back to 01/08/2014 TECHNIQUE: CC and MLO views of the breasts were obtained, using full field digital mammography with 3D tomosynthesis views in the MLO projection. Computer aided detection with the Threadbox 7.2-H was employed. Benign left breast biopsy [...] target date for the next mammogram. ([id number]) , [id number] Dictating Physician: SOURAV CASEY MD Electronically Signed by: SOURAV CASEY MD Dic Date/Time: 01/23/19 1343 Sign date/Time: 01/23/19 1344 Albaro Frye MD IMG BI PROCEDURES Final Result from Last 3 Months or Most Recently Relevant to Health Maintenance Insurance [facility] MEDICARE Member Subscriber Plan / Payer (Ef fective 2024-Present) Name:Erica Rowley Relation to Subscriber:Self Name:Erica Rowley Payer ID:[id number] Group ID:[id number] Type:Not on file Address: [address] [id number] Care Teams Juice Weigher Relationship Specialty Start Date End Date Chan Davies MD [address] [place] [id number] PCP - General Internal Medicine 08/21/21
--- OUTSIDE RECORDS SUMMARY | 2025-07-19 11:57 | XMS_ITS | Encounter Summary ---
Author Organization [employer] Address [address] [place] [address] [address] [place] [address] Care Team Providers Care Web Marketing Manager Name Role Phone Toan Hogue Primary Care Provider Unavail able Imani Fu MD Primary Care Provider [phone] Imani Fu MD Primary Care Provider [phone] Reason for Visit * Reason Onset Date Comments Referral 11/27/2022 Encounter Details Date Type Department Care Team (Late st Contact Info) Description 11/27/2022 Telephone [facility] MEDICINE [address] [place], [place] [phone] Toan Hogue AGNP Referral Social History Tobacco [...] requesting a referral to be seen at [facility]. Please contact balwinder at [phone] documented in this encounter Plan of Treatment Upcoming Encounters Date Type Department Care Team (Late Contact Info) Description 07/30/2025 11:15 AM EDT Office Visit [facility] [address] [place] [address] Imani Fu MD [address] [place] [address] documented as of this encounter Visit Diagnoses Not on filedocumented in this encounter Care Teams Web Marketing Manager Relationship Specialty Start Date End Date Toan Hogue AGNP PCP - General Family Medicine 08/24/22 01/12/23 Imani Fu MD [address] [place] [address] PCP - General Family Medicine 01/13/23 02/10/23 Imani Fu MD [address] [place] [address] PCP - General Family Medicine 03/16/23 documented as of this encounter
--- OUTSIDE RECORDS SUMMARY | 2025-07-19 11:57 | XMS_ITS | Encounter Summary ---
Author Organization [employer] Address [address] [place] [address] [address] [place] [address] Care Team Providers Care Tire Regrooving Machine Operator Name Role Phone Imani Fu MD Primary Care Provider [phone] Encounter Details Date Type Department Care Team (Late st Contact Info) Description 03/02/2023 [facility] [employer] [address] [place] [address] Toan Hogue AGNP Social History Tobacco Use [...] Description 07/30/2025 11:15 AM EDT Office Visit [facility] MED & PEDS [address] [place] [address] Imani Fu MD [address] [place] [address] documented as of this encounter Visit Diagnoses Not on filedocumented in this encounter Care Teams Tire Regrooving Machine Operator Relationship Specialty Start Date End Date Imani Fu MD [address] [place] [address] PCP - General Family Medicine 03/16/23 documented as of this encounter
--- OUTSIDE RECORDS SUMMARY | 2025-07-19 11:57 | XMS_ITS | Encounter Summary ---
Author Organization [facility] Address [address] [place] [address] Care Team Providers Care Early Head Start Director Name Role Phone Imani Fu MD Primary Care Provider [phone] Encounter Details Date Type Department Care Team [...] Description 07/30/2025 11:15 AM EDT Office Visit [facility] MED & PEDS [address] [place] [address] Imani Fu MD [address] [place] [address] documented as of this encounter Visit Diagnoses Not on filedocumented in this encounter Additional Health Concerns Assessment Noted Time PHQ-9 Depression Total Score: 3 04/11/20 25 12:15 PM EDT documented as of this encounter Care Teams Early Head Start Director Relationship Specialty Start Date End Date Imani Fu MD [address] [place] [address] PCP - General Family Medicine 03/16/23 documented as of this encounter
--- OUTSIDE RECORDS SUMMARY | 2025-07-19 11:57 | XMS_ITS | Encounter Summary ---
Author Organization [employer] Address [address] [facility] [address] [place] [address] Care Team Providers Care Electronic Test Technician Name Role Phone Imani Fu MD Primary Care Provider [phone] Encounter Details Date Type Department Care Team (Late st Contact Info) Description 07/16/2025 Orders Only [facility] MEDICINE [address] [place], [place] [phone] [place] [facility] [address] [place] [address] Social History Tobacco Use Types Packs/Day Years [...] Upcoming Encounters Date Type Department Care Team ([facility] st Contact Info) Description 07/30/2025 11:15 AM EDT Office Visit [facility] MED [facility] PEDS [address] [place] [address] Imani Fu MD [address] [place] [address] documented as of this encounter Procedures Procedure Name Priority Date/Time Associated Diagnosis Comments PATHOLOGIST REVIEW - CBC Routine 07/16/2025 11:47 AM EDT documented in this encounter Results * Pathologist Review - CBC (07/16/2025 11:47 AM EDT) Pathologist Review - CBC SEE NOTE [facility] Comment:Normochromic normocy tic anemia; scattered ovalocytes arepresent. White blood cells are decreased in number butotherwise normal-appearing.- Hao Hernández M.D. Pathology 07/16/2025 11:4 7 AM EDT 07/16/2025 2:14 PM EDT [facility] PRINTING ASSISTANT LAB BLOOD ORDERABLES Final Re sult [facility] [address] [place] [address] [phone] documented in this encounter Visit Diagnoses Not on filedocumented in this encounter Additional Health Concerns Assessment Noted Time PHQ-9 Depression Total Score: 3 04/11/20 25 12:15 PM EDT documented as of this encounter Care Teams Electronic Test Technician Relationship Specialty Start Date End Date Imani Fu MD [address] [place] [address] PCP - General Family Medicine 03/16/23 documented as of this encounter
--- OUTSIDE RECORDS SUMMARY | 2025-07-19 11:57 | XMS_ITS | Clinical Summary ---
Author Organization [facility] Address [address] [address] Care Team Providers Care Pipe Smoking Machine Offbearer Name Role Phone Unavailable Primary Care Provider [...] faxed notes from Aislinn Gaona PA-C, at [facility]. However, this is not a medical clearance and seems to be some old notes that do not specify her current treatment for hepatitis C, nor did they indicate what her HbA1c are. Physical exam was not performed today. Plan: I will try to call Ms. Gaona at the [facility] to discuss the patient's current medical status and whether or not it would be safe to bring her to the operating room for this surgery and then we will send for authorization once I speak with her. This is all explained to the patient via an compressor repairer. She stated she understood the plans and had no further questions. Dictated by: Janette DANIEL Signing Clinician: Kirby Barba MD Dictated: 02/04/2015 11:15:09 Transcribed: 02/04/2015 19:03:05 Transcribed by: AL DocID: [id number] Liver cirrhosis 02/201504/04/2015 Overview (04/04/2015): Result type: US Abdomen Ltd Result date: 21 Feb 2015 11:15 Result status: Auth (Verified) Result title: US Abdomen Ltd Performed by: Lew Mehta DO on 21 Feb 2015 13:46 Verified by: Ambrose Camarillo MD on 21 Feb 2015 13:49 Encounter info: [id number], [facility], One Time OP, 02/21/2015 - 02/21/2015 * [...] on 14 September 2014 10:25 Encounter info: [id number], [facility], One Time OP, 09/14/2014 - 09/14/2014 * [...] developed and its performance characteristics determined by [employer]. It has not been cleared or approved by the Food and Drug Administration. The FDA has determined that such clearance or approval is not necessary. For questions regarding this report please contact [facility] Customer Service Department at . [facility]FOR[facility] [address] [place] [address] Overweight 05/19/2014 Pre-diabetes 05/18/2014 Overview (05/19/2014): Carries a diagnosis of type 2 DM For months on no treatment Lab Results Component Value Date HGBA1C 5.4 05/18/2014 DJD (degenerative joint disease) 05/18/2014 Osteopenia 04/03/2013 Overview (01/01/2016): DEXA 04/03/13 at [facility]= osteopenia femoral neck Immunizations Immunization Administration Dates Next Due Hep B, Adult/Adol ([id number] ULT) 09/14/2014,08/10/2014 Family History Medical History Relation [...] Plan of Treatment Not on file Insurance [facility]
== END 2025-07-19 10:02 | disposition home or self-care (01) ==
LOC: HO.US 10:01
PROVIDERS: PCP Family Medicine; Visit Provider Registered Nurse
DX: R39.851 Costovertebral (angle) tenderness, right side (principal)
CPT/HCPCS: 76775

== ENCOUNTER → 2025-07-19 10:12 | Outpatient (BNV) | payer OTHER, SELFPAY | PROVIDERS: PCP Family Medicine; Visit Provider Radiology Diagnostic Radiology | DX: N28.1 Cyst of kidney, acquired (principal) | CPT/HCPCS: 76775 ==